=== PATIENT | female | born 1995 | race Caucasian/White ===

== ENCOUNTER 2021-03-17 18:17 | Emergency (ER) | payer OTHER, SELFPAY ==
[2021-03-17 18:20] VITALS: BP 135/80; PULSE 95; RESP 18; TEMP 36.8; O2SAT 98; BMI 16.9
--- NOTE | 2021-03-17 18:56 | CT_ITS ---
PROCEDURE INFORMATION: Exam: CT Abdomen And Pelvis With Contrast Exam date and time: 03/17/2021 6:56 PM Age: 25 years old Clinical indication: Nausea and vomiting and other: Diarrhea; Prior surgery; Surgery date: 6+ months; Surgery type: 8 years ago; Patient HX: Nausea, vomiting, diarrhea with abdominal swelling for 3 days. ; Additional info: Abdominal swelling and erythema TECHNIQUE: Imaging protocol: Computed tomography of the abdomen and pelvis with contrast. Radiation optimization: All CT scans at this facility use at least one of these dose optimization techniques: automated exposure control; mA and/or kV adjustment per patient size (includes targeted exams where dose is matched to clinical indication); or iterative reconstruction. Contrast material: ISOVUE; Contrast volume: 75 ml; Contrast route: IV; COMPARISON: No relevant prior studies available. FINDINGS: PANCREATICOHEPATOBILIARY: The liver is enlarged without a focal intrahepatic mass or abnormality. No significant intra-or extrahepatic ductal dilation. Nonspecific periportal edema and pericholecystic fluid/diffuse gallbladder wall thickening/edema without obvious gallstones. Pancreas and spleen are unremarkable. . GENITOURINARY: No adrenal mass. Both kidneys are unremarkable without hydronephrosis. Empty urinary bladder. Uterus is normal, ovarian cysts/follicles. Small amount of free fluid in the pelvis. . GASTROINTESTINAL: A few colonic diverticula. Distended fluid-filled small and large bowel loops with wall-mucosal thickening/hyperemia. Distended air/fluid containing distal thoracic esophagus suggestive of reflux. No free intraperitoneal air or fluid collection. APPENDIX is not reliably identified. . OTHER STRUCTURES: Aorta appears unremarkable without evidence of aortic aneurysm. No bulky lymph node enlargement. Platelike atelectasis in the LEFT lung base. Asymmetric marked subcutaneous soft tissue edema-fluid in the RIGHT anterior abdominal wall extending to the midline and from the subcostal margin to the level of the symphysis pubis/mons pubis and vulva. No discrete loculated fluid collection to suggest an abscess, mildly enlarged hyperemic numerous RIGHT reactive/inguinal lymph nodes. IMPRESSION: 1. Findings suspicious for ENTEROCOLITIS. 2. Findings suggestive of CELLULITIS of the RIGHT anterior abdominal wall extending to the pelvis and reactive RIGHT INGUINAL LYMPHADENITIS detailed above without a discernible abscess. Recommend followup to complete resolution. 3. Diffuse gallbladder wall thickening/edema likely related to vigorous intravenous hydration versus less likely acute cholecystitis. 4. Other nonemergent/incidental findings as described.
--- NOTE | 2021-03-17 19:13 | PC.NURSE ---
PATIENT REFUSED BLOOD PRESSURE MONITORING AT THIS TIME
--- NOTE | 2021-03-17 19:17 | HMH.EDABDPAI ---
ED Disposition Clinical Impression: Cellulitis of right abdominal wall Disposition: Still a Patient Condition on Discharge: Fair Instructions: DI for Acute Abdominal Pain Referrals: Manuel Holt MD [Primary Care Provider] - - Critical Care Critical Care Time: No Attestation: On 03/17/21, the high probability of a clinically significant, sudden or life threatening deterioration of the following system(s) required my full and direct attention, intervention and personal management. The time I documented below is in addition to time spent performing reported procedures but includes the following listed in this critical care notation. Medical Decision Making - Medical Records Medical records reviewed: Yes: I reviewed the patient's medical records. - Rigo Inquiry Pt receiving controlled substance: Yes Rigo was queried for this patient: No Reason not queried -: Emergent pt cond-no time Risks and benefits of using a controlled substance: were discussed with pt by me Vital Signs: 03/17/21 18:20 Temperature 98.3 F Temperature Source Oral Pulse Rate [Right] 95 H Respiratory Rate 18 Blood Pressure [Right Arm] 135/80 Blood Pressure Mean [Right Arm] 98 02 Sat by Pulse Oximetry 98 Oxygen Delivery Method Room Air - Lab Data Lab Results 03/17/21 19:09: WBC 13.6 H, RBC 4.83, Hgb 14.6, Hct 43.5, MCV 90.2, MCH 30.3, MCHC 33.6, RDW 12.6, Plt Count 262, MPV 7.4, Neut % (Auto) 84.4 H, Lymph % (Auto) 9.9 L, [place] % (Auto) 4.2, Eos % (Auto) 1.2, Baso % (Auto) 0.3, Neut # (Auto) 11.5 H, Lymph # (Auto) 1.4, Williamson # (Auto) 0.6, Eos # (Auto) 0.2, Baso # (Auto) 0.0 03/17/21 19:09: Sodium 137, Potassium 3.8, Chloride 103, Carbon Dioxide 25, Anion Gap 12.8, BUN 9, Creatinine 0.60, Estimated Creat Clear 88, Estimated GFR 120, Est GFR ( Amer) 145, Glucose 101 H, Calcium 9.4, Total Bilirubin 0.9, AST 19, ALT 14, Alkaline Phosphatase 109, Total Protein 7.5, Albumin 4.1, Globulin 3.4 H, Albumin/Globulin Ratio 1.2, Lipase 16 L 03/17/21 19:09: Lactate 1.1 Result diagrams: 03/17/21 19:09 03/17/21 19:09 Orders (Tests/Meds): ED MEDICATIONS Generic Name Dose Route Start Last Admin Trade Name Freq PRN Reason Stop Dose Admin Sodium Chloride 1,000 mls @ 999 mls/hr 03/17/21 19:00 03/17/21 19:05 Sod Chlor 0.9% 1000ml Bag IV 03/17/21 20:00 999 mls/hr .Q1H1M ANITA Administration Ceftriaxone Sodium 1 gm/ 50 mls @ 100 mls/hr 03/17/21 19:45 Sodium Chloride IV 03/31/21 19:44 Q24H ANITA Protocol Discontinued Medications Generic Name Dose Route Start Last Admin Trade Name Freq PRN Reason Stop Dose Admin Morphine Sulfate 4 mg 03/17/21 18:56 03/17/21 19:06 Morphine 4mg/Ml Syringe IV 03/17/21 18:57 4 mg ONCE ONE Administration Ondansetron HCl 4 mg 03/17/21 18:56 03/17/21 19:04 Ondansetron 4mg/2ml Vial IV 03/17/21 18:57 4 mg ONCE ONE Administration ORDERS Category Date Time Status CT abdomen pelvis w con Stat Cat Scan 03/17/21 18:56 Ordered Urinalysis and Microscopic Stat Lab 03/17/21 18:55 Ordered Urine , HCG Qual. Stat Lab 03/17/21 18:55 Ordered Blood Culture Stat Micro 03/17/21 18:55 Received - Reevaluation(s) Time: 19:42 Reevaluation #1: On reevaluation, patient is feeling better. Does have slight leukocytosis. Placed on antibiotics. Patient signed out to oncoming physician pending CT and reevaluation. Medical Decision Narrative: 25-year-old female presented to the emergency department with some abdominal discomfort. The patient does have findings consistent with abdominal wall cellulitis. Patient is afebrile at this time. Work-up initiated. Abdominal Pain HPI - General Chief Complaint: Abdominal Pain Stated Complaint: Red soreness in stomach area hot to touch Time Seen by Provider: 03/17/21 18:25 Mode of Arrival: Family Vehicle Limitations: No Limitations Description of Symptoms (Recalled from ER Triage Doc. by RN): PATIENT C/O LOWER PAIN
[2021-03-17 19:28] LABS: Basophils % 0.3 % (0.1-2.0); Eosinophils # 0.2 K/mm3 (0.0-0.4); Eosinophils % 1.2 % (0.1-12.0); Hematocrit 43.5 % (37.0-47.0); Hemoglobin 14.6 g/dL (12.2-16.2); Lymphocytes # 1.4 K/mm3 (0.7-4.5); Lymphocytes % 9.9 % (10-50); Mean Corpuscular HGB Conc 33.6 g/dL (31.8-35.4); Mean Corpuscular Hemoglobin 30.3 pg (27.0-31.2); Mean Corpuscular Volume 90.2 fl (81-99); Mean Platelet Volume 7.4 fl (7.4-10.4); Monocytes # 0.6 K/mm3 (0.1-1.0); Monocytes % 4.2 % (1.7-9.3); Neutrophils # 11.5 K/mm3 (1.8-7.8); Neutrophils % 84.4 % (37.0-80.0); Platelet Count 262 K/mm3 (142-424); Red Blood Count 4.83 M/mm3 (4.20-5.40); Red Cell Distribution Width 12.6 % (11.5-17.5); White Blood Count 13.6 K/mm3 (4.8-10.8)
[2021-03-17 19:29] LABS: Potassium 3.8 mmoL/L (3.5-5.1); Sodium 137 mmol/L (136-145)
[2021-03-17 19:30] LABS: Chloride 103 mmol/L (98-107)
[2021-03-17 19:32] LABS: Alanine Aminotransferase 14 U/L (12-78); Albumin Level 4.1 g/dl (3.5-5.0); Albumin/Globulin Ratio 1.2 (1.1-1.8); Alkaline Phosphatase 109 U/L (38-126); Anion Gap 12.8 mEq/L (5-15); Aspartate Amino Transferase 19 U/L (14-36); Bilirubin,Total 0.9 mg/dl (0.2-1.3); Blood Urea Nitrogen 9 mg/dl (7-17); Calcium 9.4 mg/dl (8.4-10.2); Carbon Dioxide 25 mmol/L (22.0-30.0); Creatinine Clearance Estimated 88 mL/min (50-200); Estimated Glomerular Filt Rate 120 ml/min (>60); GFR (African American) 145 ML/MIN (>60); Globulin 3.4 g/dL (1.3-3.2); Glucose 101 mg/dl (74-100); Lactic Acid 1.1 mmol/L (0.7-2.1); Lipase 16 U/L (23-300); Total Protein,Serum 7.5 g/dl (6.3-8.2)
[2021-03-17 20:09] LABS: HCG Qualitative, Serum Negative (Negative)
[2021-03-17 20:17] LABS: Microscopic, Urine URINE MICROSCOPIC (MICROSCOPIC)
[2021-03-17 20:20] LABS: Appearance,Urine SL CLOUDY (Clear); Blood, Urine Negative (Negative); Color,Urine YELLOW (Yellow); Glucose,Urine (UA) Negative (Negative); Ketones,Urine TRACE (Negative); Leukocyte Esterase,Urine Negative (Negative); Nitrate,Urine Negative (Negative); Protein,Urine 1+ (Negative); Specific Gravity, Urine >= 1.030 (1.005-1.030)
[2021-03-17 20:24] LABS: Bilirubin,Urine Negative (Negative)
[2021-03-17 20:35] LABS: Bacteria,Urine 3+ /lpf; Mucus,Urine 2+ /lpf; Squamous Epithelial Cell,Urine TNTC #/hpf (0-5)
--- NOTE | 2021-03-17 21:26 | PC.NURSE ---
discontinued iv per md request.
[2021-03-17 21:27] VITALS: BP 119/57; PULSE 88; RESP 20; TEMP 36.7; O2SAT 98
== END 2021-03-17 21:25 | disposition left against medical advice (07) ==
PROVIDERS: Emergency Provider Emergency Medicine; PCP Internal Medicine Adolescent Medicine
DX: L03.311 Cellulitis of abdominal wall (principal); R10.30 Lower abdominal pain, unspecified; F17.210 Nicotine dependence, cigarettes, uncomplicated
CPT/HCPCS: 74177; 80053; 81001; 83605; 83690; 84703; 85025; 87040; 87086; 96365; 99283; J2405; Q9967

== ENCOUNTER 2021-03-18 15:56 | Emergency (ER) | payer OTHER, SELFPAY ==
[2021-03-18 15:57] VITALS: BP 126/71; PULSE 87; RESP 17; TEMP 36.8; O2SAT 98; BMI 17.1
--- NOTE | 2021-03-18 18:00 | PC.NURSE ---
pt left without being seen by ER MD at this time.
[2021-03-18 18:01] VITALS: BP 126/71; PULSE 87; RESP 17; TEMP 36.8; O2SAT 98
== END 2021-03-18 18:01 | disposition left against medical advice (07) ==
PROVIDERS: Emergency Provider Emergency Medicine; PCP Internal Medicine Adolescent Medicine
DX: Z53.21 Procedure and treatment not carried out due to patient leaving prior to being seen by health care provider (principal); L03.311 Cellulitis of abdominal wall
CPT/HCPCS: 99211

== ENCOUNTER 2023-01-10 03:03 | Emergency (ER) | payer OTHER, SELFPAY ==
[2023-01-10 03:21] VITALS: BP 130/91; PULSE 75; RESP 18; TEMP 36.2; O2SAT 99; BMI 18.5
[2023-01-10 03:29] LABS: Microscopic, Urine URINE MICROSCOPIC (MICROSCOPIC)
[2023-01-10 03:32] LABS: Appearance,Urine TURBID (Clear); Bilirubin,Urine Negative (Negative); Blood, Urine TRACE-I (Negative); Color,Urine YELLOW (Yellow); Glucose,Urine (UA) Negative (Negative); Ketones,Urine Negative (Negative); Leukocyte Esterase,Urine 1+ (Negative); Nitrate,Urine Negative (Negative); PH,Urine 5.5 (5.0-8.5); Protein,Urine Negative (Negative); Specific Gravity, Urine >= 1.030 (1.005-1.030); Urobilinogen,Urine 0.2 EU/dl (0.2)
[2023-01-10 03:34] LABS: Urine Pregnancy, HCG Qual. Positive (Negative)
--- NOTE | 2023-01-10 03:34 | HMH.EDGENADL ---
Discharge Plan Disposition Chief Complaint: Nausea/Vomiting/Diarrhea Prescriptions Prescriptions: New promethazine 25 mg tablet 25 mg PO TID PRN (Reason: nausea and vomiting) Qty: 10 0RF pyridoxine (vitamin B6) 25 mg tablet 25 mg PO QID PRN (Reason: nausea and vomiting) Qty: 15 0RF Instructions Patient Instructions: DI for Diarrhea and Traveler's Diarrhea -- Adult, DI for Diarrhea and Traveler's Diarrhea -- Child, DI for Nausea -- Adult, DI for Nausea -- Child Discharge ED Provider: Michael Cyr General Adult HPI General Chief complaint: Nausea/Vomiting/Diarrhea Stated complaint: 8-9 weeks vomiting,HERNANDEZ,stomach pain Time Seen by Provider: 01/10/23 03:34 Mode of Arrival: Ambulatory Source of Information: Patient Limitations: No Limitations Description of Symptoms (Recalled from ER Triage Doc. by RN): Pt arrives to ER via private vehicle with c/o nausea for the prior several weeks. Pt states that she found out that she was due to her nausea. However, tonight patient presents with worsening nausea and is unable to keep any fluids down. Pt also has a headache and diarrhea. C/O left sided pain from her ribs to her left hip. History of Present Illness HPI narrative: Patient presents for evaluation of nausea and vomiting for the last several hours patient estimates she is approximately 10 weeks , but has not had a confirmatory ultrasound. She denies vaginal bleeding at this time. She is having left-sided abdominal pain as well. Patient states she is having significant diarrhea, but no reported fevers. Related Data Previous Rx's Medication Instructions Recorded promethazine 25 mg tablet 25 mg PO TID PRN nausea and 01/10/23 vomiting #10 tabs pyridoxine (vitamin B6) 25 mg 25 mg PO QID PRN nausea and 01/10/23 tablet vomiting #15 tabs Allergies Allergy/AdvReac Type Severity Reaction Status Date / Time No Known Allergies Allergy Unverified 11/03/17 14:03 [facility] Disclaimer: The information contained in this section may have been updated after the patient was seen, as this information can be updated by other users. Social History Smoking Status: Current every day smoker tobacco type: cigarettes packs per day: 1 second hand exposure: Yes alcohol intake: never current occupational status: other Travel in the last 8 weeks: None ROS Obtained: Yes Systems reviewed as appropriate & no additional complaints except as documented Physical Exam General General appearance: alert and in no apparent distress Head Head exam: atraumatic and normocephalic Eye Eye exam: Present normal appearance Chest Chest inspection: Present normal inspection and symmetric chest wall rise Respiratory Respiratory exam: Present normal lung sounds bilaterally Cardiovascular Cardiovascular exam: Present regular rate and normal rhythm Abdominal Exam Abdominal exam: Present soft Abdominal tenderness: Present LUQ and LLQ Neurological Exam Neurological exam: Present alert and oriented X3 Skin Skin exam: Present warm and dry Medical Decision Making Rigo Inquiry Pt receiving controlled substance: No Vital Signs: 01/10/23 03:21 Temperature 97.2 F L Temperature Source Oral Pulse Rate [Apical] 75 Respiratory Rate 18 Blood Pressure [Right Arm] 130/91 H Blood Pressure Mean [Right Arm] 104 Blood Pressure Source [Right Arm] Automatic Cuff Blood Pressure Position [Right Arm] Sitting 02 Sat by Pulse Oximetry 99 Oxygen Delivery Method Room Air Lab Data Lab Results 01/10/23 03:10: Urine Color Yellow, Urine Appearance Turbid, Urine pH 5.5, Ur Specific [place] >= 1.030, Urine Protein Negative, Urine Glucose (UA) Negative, Urine Ketones Negative, Urine Blood Trace-i, Urine Nitrate Negative, Urine Bilirubin Negative, Urine Urobilinogen 0.2, Ur Leukocyte Esterase 1+ A, Urine RBC None, Urine WBC 5-10, Ur Squamous Epith Cells Tntc, Amorphous Sediment 1+, Urine Bacteria 2+ 01/10/23 03:10: Urine HCG,
[2023-01-10 03:44] LABS: Basophils # 0.1 K/mm3 (0-0.2); Basophils % 0.8 % (0.1-2.0); Eosinophils # 0.3 K/mm3 (0.0-0.4); Eosinophils % 1.9 % (0.1-12.0); Hematocrit 43.3 % (37.0-47.0); Hemoglobin 14.7 g/dL (12.2-16.2); Lymphocytes # 3.3 K/mm3 (0.7-4.5); Lymphocytes % 24.4 % (10-50); Mean Corpuscular Hemoglobin 31.6 pg (27.0-31.2); Mean Corpuscular Volume 92.8 fl (81-99); Mean Platelet Volume 7.6 fl (7.4-10.4); Monocytes # 0.5 K/mm3 (0.1-1.0); Monocytes % 3.8 % (1.7-9.3); Neutrophils # 9.2 K/mm3 (1.8-7.8); Neutrophils % 69.1 % (37.0-80.0); Platelet Count 340 K/mm3 (142-424); Red Blood Count 4.67 M/mm3 (4.20-5.40); Red Cell Distribution Width 13.1 % (11.5-17.5); White Blood Count 13.3 K/mm3 (4.8-10.8)
[2023-01-10 03:46] LABS: Amorphous Sediment,Urine 1+ /lpf; Bacteria,Urine 2+ /lpf; Squamous Epithelial Cell,Urine TNTC #/hpf (0-5)
--- NOTE | 2023-01-10 03:47 | US_ITS ---
PROCEDURE INFORMATION: Exam: US , Transvaginal and US Duplex Artery and Vein, Ovaries, Complete Exam date and time: 01/10/2023 4:22 AM Age: 27 years old Clinical indication: complicated by abdominal or pelvic pain; Left lower quadrant; First trimester (<14 weeks 0 days); Gestational age or lmp: 9w; ; Additional info: Mod-severe abd pain, undocumented TECHNIQUE: Imaging protocol: Real-time transvaginal obstetrical ultrasound of the maternal pelvis and a first trimester with image documentation. Transvaginal imaging was used for better evaluation of the fetus, adnexa, and/or cervix. Real-time duplex ultrasound scan of the arterial and venous flow of the ovaries with B-mode, color Doppler flow and spectral waveform analysis, Complete Duplex. Duplex exam was performed to evaluate for torsion and other vascular conditions. COMPARISON: No relevant prior studies available. FINDINGS: Uterus: The uterus is gravid with a single intrauterine gestational sac containing pole/yolk sac. Cardiac activity at 167 beats per minute. . Composite Gestational Age/ Pole corresponds to 8 weeks and 6 days with estimated date of confinement of 08/16/2023. . Adnexa/Ovaries: RIGHT ovary measures approximately 8.0 mL and LEFT ovary 5.1 mL. No adnexal mass or abnormality. No free fluid in the pelvis. . Doppler: Doppler examination of the ovaries with pulsed wave and color images was performed which demonstrate arterial/venous waveforms within normal limits. IMPRESSION: 1. Single LIVE intrauterine gestation. 2. Normal ovaries demonstrating blood flow on Doppler.
[2023-01-10 03:50] LABS: Alanine Aminotransferase 16 U/L (12-78); Albumin Level 4.3 g/dl (3.5-5.0); Albumin/Globulin Ratio 1.6 (1.1-1.8); Alkaline Phosphatase 52 U/L (38-126); Anion Gap 4.5 mEq/L (5-15); Aspartate Amino Transferase 26 U/L (14-36); Bilirubin,Total 0.5 mg/dl (0.2-1.3); Blood Urea Nitrogen 5 mg/dl (7-17); Calcium 9.1 mg/dl (8.4-10.2); Carbon Dioxide 28 mmol/L (22.0-30.0); Chloride 106 mmol/L (98-107); Creatinine Clearance Estimated 113 mL/min (50-200); Estimated Glomerular Filt Rate 146 ml/min (>60); GFR (African American) 177 ML/MIN (>60); Globulin 2.7 g/dL (1.3-3.2); Glucose 115 mg/dl (74-100); Lipase 55 U/L (23-300); Potassium 3.5 mmoL/L (3.5-5.1); Sodium 135 mmol/L (136-145)
--- NOTE | 2023-01-10 04:20 | PC.NURSE ---
Pt to ultrasound.
--- NOTE | 2023-01-10 04:38 | PC.NURSE ---
Pt back from U/S
[2023-01-10 05:36] VITALS: BP 112/70; PULSE 87; RESP 19; TEMP 36.5; O2SAT 97
== END 2023-01-10 05:40 | disposition home or self-care (01) ==
PROVIDERS: Emergency Provider Emergency Medicine
DX: R19.7 Diarrhea, unspecified; R51.9 Headache, unspecified; F17.210 Nicotine dependence, cigarettes, uncomplicated; O21.9 Vomiting of pregnancy, unspecified; Z3A.10 10 weeks gestation of pregnancy; O99.891 Other specified diseases and conditions complicating pregnancy; O99.331 Smoking (tobacco) complicating pregnancy, first trimester
CPT/HCPCS: 76817; 80053; 81001; 81025; 83690; 84702; 85025; 87086; 96361; 96374; 96375; 99285; J0131

== ENCOUNTER 2023-01-11 15:15 | Observation (INO) | payer OTHER, SELFPAY ==
[2023-01-11 15:16] VITALS: BP 119/90; PULSE 79; RESP 18; TEMP 36.7; O2SAT 96; BMI 19.5
[2023-01-11 15:47] LABS: Basophils # 0.1 K/mm3 (0-0.2); Basophils % 0.5 % (0.1-2.0); Eosinophils # 0.2 K/mm3 (0.0-0.4); Eosinophils % 1.1 % (0.1-12.0); Hematocrit 48.1 % (37.0-47.0); Hemoglobin 16.5 g/dL (12.2-16.2); Lymphocytes # 1.4 K/mm3 (0.7-4.5); Lymphocytes % 8.3 % (10-50); Mean Corpuscular HGB Conc 34.3 g/dL (31.8-35.4); Mean Corpuscular Hemoglobin 31.4 pg (27.0-31.2); Mean Corpuscular Volume 91.6 fl (81-99); Mean Platelet Volume 7.8 fl (7.4-10.4); Monocytes # 0.6 K/mm3 (0.1-1.0); Monocytes % 3.6 % (1.7-9.3); Neutrophils # 14.9 K/mm3 (1.8-7.8); Neutrophils % 86.5 % (37.0-80.0); Platelet Count 359 K/mm3 (142-424); Red Blood Count 5.25 M/mm3 (4.20-5.40); Red Cell Distribution Width 13.2 % (11.5-17.5); White Blood Count 17.2 K/mm3 (4.8-10.8)
[2023-01-11 15:48] LABS: Alanine Aminotransferase 35 U/L (12-78); Albumin Level 5.1 g/dl (3.5-5.0); Albumin/Globulin Ratio 1.6 (1.1-1.8); Alkaline Phosphatase 58 U/L (38-126); Anion Gap 10.3 mEq/L (5-15); Aspartate Amino Transferase 42 U/L (14-36); Bilirubin,Total 0.9 mg/dl (0.2-1.3); Blood Urea Nitrogen 13 mg/dl (7-17); Carbon Dioxide 30 mmol/L (22.0-30.0); Chloride 98 mmol/L (98-107); Creatinine Clearance Estimated 119 mL/min (50-200); Estimated Glomerular Filt Rate 146 ml/min (>60); GFR (African American) 177 ML/MIN (>60); Globulin 3.1 g/dL (1.3-3.2); Glucose 138 mg/dl (74-100); Potassium 3.3 mmoL/L (3.5-5.1); Sodium 135 mmol/L (136-145); Total Protein,Serum 8.2 g/dl (6.3-8.2)
[2023-01-11 15:53] LABS: MANUAL DIFFERENTIAL MANUAL DIFFERENTIAL (MANUAL DIFF)
[2023-01-11 16:03] LABS: Lymphocytes % 10 % (10-50); Monocytes % 3 % (2-9); Neutrophils % 87 % (42-76); Total Cells Counted 100
[2023-01-11 16:05] LABS: Platelet Estimate Normal; RBC Morphology Normal
--- NOTE | 2023-01-11 16:35 | PC.NURSE ---
NADIRA MCKEON at
--- NOTE | 2023-01-11 16:45 | HMH.EDGENADL ---
Discharge Plan Disposition Patient Disposition: Admitted as Observation Condition: Fair Chief Complaint: Nausea/Vomiting/Diarrhea Prescriptions Prescriptions: No Action promethazine 25 mg tablet 25 mg PO TID PRN (Reason: nausea and vomiting) Qty: 10 0RF pyridoxine (vitamin B6) 25 mg tablet 25 mg PO QID PRN (Reason: nausea and vomiting) Qty: 15 0RF Referrals Follow up/Referrals: Provider,Referral, MD [Primary Care Provider] - See instructions Clinical Impressions Clinical Impression: Gastroenteritis, Intractable vomiting, , Acute dehydration Instructions Patient Instructions: DI for Diarrhea and Traveler's Diarrhea -- Adult, DI for Diarrhea and Traveler's Diarrhea -- Child, DI for Nausea -- Adult, DI for Nausea -- Child Discharge ED Provider: Taj Olvera General Adult HPI General Chief complaint: Nausea/Vomiting/Diarrhea Stated complaint: 9wks preg with vomiting Time Seen by Provider: 01/11/23 16:32 Mode of Arrival: Ambulatory Source of Information: Patient Limitations: No Limitations Description of Symptoms (Recalled from ER Triage Doc. by RN): pt is 9 weeks and is complianing of nausea/ vomiting x 3 days. pt was seen in the ER two nights ago for same complaints History of Present Illness HPI narrative: Complains of vomiting and dehydration. She is 9 weeks 1 day gestation . States that she began with nausea, vomiting, and diarrhea 3 days ago. She had about 4 episodes of diarrhea and since then has not had a bowel movement. No blood in diarrhea. She has had intractable vomiting, unable to keep anything down and now feels dehydrated, dry mouth. Initially she had left-sided abdominal pain but now says she has no abdominal pain. She says she has some soreness of the left side of her throat and her neck from vomiting. She thinks she might of had a fever when her illness first started. She was seen in the emergency room 2 nights ago for the same complaints. Discharged on Phenergan and pyridoxine which has not helped. She has not yet had any care for this . She is 2, para 1, with prior . Related Data Previous Rx's Medication Instructions Recorded promethazine 25 mg tablet 25 mg PO TID PRN nausea and 01/10/23 vomiting #10 tabs pyridoxine (vitamin B6) 25 mg 25 mg PO QID PRN nausea and 01/10/23 tablet vomiting #15 tabs Allergies Allergy/AdvReac Type Severity Reaction Status Date / Time No Known Allergies Allergy Unverified 11/03/17 14:03 [facility] Disclaimer: The information contained in this section may have been updated after the patient was seen, as this information can be updated by other users. Social History Smoking Status: Current every day smoker tobacco type: cigarettes packs per day: 1 second hand exposure: Yes alcohol intake: never current occupational status: other Travel in the last 8 weeks: None ROS Obtained: Yes Systems reviewed as appropriate & no additional complaints except as documented Constitutional Constitutional: Reports fever(s), Denies headache(s) and Denies weakness ENT Ears, Nose, Mouth, and Throat: Denies headache(s), Denies nasal discharge and Reports sore throat (Hurts when she vomits) Cardiovascular Cardiovascular: Denies chest pain Respiratory Respiratory: Denies shortness of breath and Denies cough Gastrointestinal Gastrointestingal: Reports abdominal pain, diarrhea, nausea and vomiting; Denies constipation Genitourinary Female Genitourinary: Denies difficulty voiding, Denies dysuria and Denies flank pain Musculoskeletal Musculoskeletal: Denies numbness Neurologic Neurologic: Denies headache(s), Denies numbness and Denies weakness Physical Exam General General appearance: alert and in no apparent distress Head Head exam: atraumatic and normocephalic Eye Eye exam: Present normal appearance and EOMI ENT ENT exam: Present mucous membranes dry (Lips dry also) Neck Neck
[2023-01-11 16:46] VITALS: BP 127/81; PULSE 74; RESP 16; O2SAT 98
--- NOTE | 2023-01-11 16:47 | PC.NURSE ---
pt sitting up in bed, trying to drink 7 up, recommended to pt that she try to take small sips at a time call light within reach
--- NOTE | 2023-01-11 16:58 | PC.NURSE ---
speaking with Dr. Jaime
[2023-01-11 17:02] LABS: Lipase 48 U/L (23-300)
--- NOTE | 2023-01-11 17:05 | PC.NURSE ---
called house for bed
[2023-01-11 17:13] LABS: Coronavirus 19, PCR Not Detected (NotDetected); Influenza A, PCR Not Detected (NotDetected); Influenza B, PCR Not Detected (NotDetected)
--- NOTE | 2023-01-11 18:27 | PC.NURSE ---
Dr. Jaime at pt's bedside
--- NOTE | 2023-01-11 18:44 | PC.NURSE ---
Attempting to call report
[2023-01-11 18:50] LABS: Microscopic, Urine URINE MICROSCOPIC (MICROSCOPIC)
--- NOTE | 2023-01-11 18:51 | PC.NURSE ---
Called report to Sydnee Murphy RN, will transport pt to OB shortly.
[2023-01-11 18:57] LABS: Appearance,Urine SL CLOUDY (Clear); Blood, Urine Negative (Negative); Color,Urine YELLOW (Yellow); Glucose,Urine (UA) Negative (Negative); Ketones,Urine TRACE (Negative); Leukocyte Esterase,Urine Negative (Negative); Nitrate,Urine Negative (Negative); Protein,Urine 1+ (Negative)
[2023-01-11 19:01] LABS: Bilirubin,Urine 1+ (Negative)
[2023-01-11 19:08] VITALS: BP 139/78; PULSE 75; RESP 17; TEMP 36.8; O2SAT 97
[2023-01-11 19:13] LABS: Bacteria,Urine 2+ /lpf; RBC,Urine Occasional #/hpf (0-3); Squamous Epithelial Cell,Urine 20-50 #/hpf (0-5)
[2023-01-11 19:30] VITALS: BP 115/69; PULSE 84; RESP 18; TEMP 37.1; O2SAT 95; BMI 19.6
[2023-01-12 00:05] LABS: Amphetamine/Metha Screen,Urine Negative ng/ml (<1000); Barbiturates Screen,Urine Negative ng/ml (<200)
[2023-01-12 00:06] LABS: Benzodiazepines Screen,Urine Negative ng/ml (<200); Cannabinoid Screen,Urine Positive ng/ml (<50)
[2023-01-12 00:07] LABS: Cocaine Screen,Urine Negative ng/ml (<300)
[2023-01-12 00:08] LABS: Methadone Screen,Urine Negative ng/ml (<300); Opiate Screen,Urine Negative ng/ml (<300)
[2023-01-12 00:09] LABS: Phencyclidine Screen,Urine Negative ng/ml (<25)
[2023-01-12 04:00] VITALS: BP 116/71; PULSE 82; RESP 18; TEMP 36.9; O2SAT 95
[2023-01-12 06:56] LABS: Basophils # 0.1 K/mm3 (0-0.2); Basophils % 0.4 % (0.1-2.0); Mean Platelet Volume 7.9 fl (7.4-10.4); Monocytes # 0.6 K/mm3 (0.1-1.0)
[2023-01-12 06:57] LABS: Chloride 106 mmol/L (98-107); Potassium 3.2 mmoL/L (3.5-5.1); Sodium 134 mmol/L (136-145)
[2023-01-12 07:00] LABS: Anion Gap 7.2 mEq/L (5-15); Blood Urea Nitrogen 7 mg/dl (7-17); Calcium 8.2 mg/dl (8.4-10.2); Carbon Dioxide 24 mmol/L (22.0-30.0); Creatinine Clearance Estimated 149 mL/min (50-200); Estimated Glomerular Filt Rate 189 ml/min (>60); GFR (African American) 228 ML/MIN (>60); Glucose 100 mg/dl (74-100)
[2023-01-12 07:04] LABS: Eosinophils % 0.2 % (0.1-12.0); Hematocrit 41.6 % (37.0-47.0); Lymphocytes # 1.8 K/mm3 (0.7-4.5); Lymphocytes % 14.5 % (10-50); Mean Corpuscular HGB Conc 32.3 g/dL (31.8-35.4); Mean Corpuscular Hemoglobin 30.6 pg (27.0-31.2); Mean Corpuscular Volume 94.8 fl (81-99); Monocytes % 4.6 % (1.7-9.3); Neutrophils # 10.1 K/mm3 (1.8-7.8); Neutrophils % 80.3 % (37.0-80.0); Platelet Count 309 K/mm3 (142-424); Red Blood Count 4.39 M/mm3 (4.20-5.40); Red Cell Distribution Width 13.2 % (11.5-17.5); White Blood Count 12.6 K/mm3 (4.8-10.8)
[2023-01-12 07:06] LABS: Hemoglobin 13.4 g/dL (12.2-16.2)
--- NOTE | 2023-01-12 07:16 | HMH.PHAINT1 ---
Pharmacy Intervention Comments: MEDICATION RECONCILIATION COMPLETED ON PATIENT USING EXTERNAL FILL HISTORY FROM PHARMACY. -ADRIA CUELLO, ARABELLAD
[2023-01-12 07:37] LABS: Free Thyroxine Index 7.1 ug/dL (5.93-13.13); T4 (Thyroxine) 17.8 ug/dl (5.53-11.0); Triiodothryronine (T3) Uptake 40 % (23.5-40.5)
[2023-01-12 07:51] LABS: Thyroid Stimulating Hormone < 0.02 uIU/mL (0.465-4.68)
[2023-01-12 08:10] VITALS: BP 134/84; PULSE 78; RESP 18; TEMP 36.7; O2SAT 97
--- NOTE | 2023-01-12 08:42 | EXP.HP ---
History of Present Illness *Admission Date: 01/11/23 *Reason for visit:: Nausea vomiting, dehydration, hyperemesis *History of present illness: She is a 27-year-old 2 para 1 at 9 weeks gestational age with an early ultrasound that confirmed her dates. She was seen a couple of days ago with nausea and vomiting and dehydration and was seen again in the ER 48 hours later. As result of that she is admitted for rehydration, control of nausea and vomiting. [facility] Disclaimer: The information contained in this section may have been updated after the patient was seen, as this information can be updated by other users. Surgical History History of section Family History Family history of diabetes mellitus type II Social History Smoking Status: Former smoker second hand exposure: Yes alcohol intake: never current occupational status: employed Travel in the last 8 weeks: None Review of Systems Review of Systems Review of systems:: pertinent systems reviewed and negative unless documented below Constitutional Constitutional: Denies headache(s) and Denies weakness ENT Ears, Nose, Mouth, and Throat: Denies headache(s) *Musculoskeletal Musculoskeletal: Denies numbness *Neurologic Neurologic: Denies headache(s), Denies numbness and Denies weakness Meds Home Medications and Allergies Home Medications Medication Instructions Recorded Confirmed Type promethazine 25 mg tablet 25 mg PO TID PRN nausea and 01/10/23 01/11/23 Rx vomiting #10 tabs pyridoxine (vitamin B6) 25 mg 25 mg PO QID PRN nausea and 01/10/23 01/11/23 Rx tablet vomiting #15 tabs New Prescriptions to Start Prescriptions: Allergies Allergy/AdvReac Type Severity Reaction Status Date / Time No Known Allergies Allergy Unverified 11/03/17 14:03 Exam Data for Last 24 hours Vital signs and Labs for Last 24 Hours: Temp Pulse Resp BP Pulse Ox 98.5 F 82 18 116/71 95 01/12/23 04:00 01/12/23 04:00 01/12/23 04:00 01/12/23 04:00 01/12/23 04:00 Laboratory Results - last 24 hr 01/11/23 15:00: Lipase 48 01/11/23 15:20: WBC 17.2 H D, RBC 5.25, Hgb 16.5 H, Hct 48.1 H, MCV 91.6, MCH 31.4 H, MCHC 34.3, RDW 13.2, Plt Count 359, MPV 7.8, Neut % (Auto) 86.5 H, Lymph % (Auto) 8.3 L, [place] % (Auto) 3.6, Eos % (Auto) 1.1, Baso % (Auto) 0.5, Neut # (Auto) 14.9 H, Lymph # (Auto) 1.4, Oliver # (Auto) 0.6, Eos # (Auto) 0.2, Baso # (Auto) 0.1, Total Counted 100, Neutrophils % (Manual) 87 H, Lymphocytes % (Manual) 10, Monocytes % (Manual) 3, Platelet Estimate Normal, RBC Morphology Normal 01/11/23 15:20: Sodium 135 L, Potassium 3.3 L, Chloride 98, Carbon Dioxide 30, Anion Gap 10.3, BUN 13 D, Creatinine 0.50 L, Estimated Creat Clear 119, Estimated GFR 146, Est GFR ( Amer) 177, Glucose 138 H, Calcium 10.0, Total Bilirubin 0.9, AST 42 H D, ALT 35 D, Alkaline Phosphatase 58, Total Protein 8.2, Albumin 5.1 H D, Globulin 3.1, Albumin/Globulin Ratio 1.6 01/11/23 17:07: SARS-CoV-2 (PCR) Not detected, Influenza A Untype (PCR) Not detected, Influenza Type B (PCR) Not detected 01/11/23 18:48: Urine Color Yellow, Urine Appearance Sl cloudy, Urine pH 8.0, Ur Specific [place] 1.020, Urine Protein 1+, Urine Glucose (UA) Negative, Urine Ketones Trace, Urine Blood Negative, Urine Nitrate Negative, Urine Bilirubin 1+ A, Urine Urobilinogen 1.0, Ur Leukocyte Esterase Negative, Urine RBC Occasional, Urine WBC 3-5, Ur Squamous Epith Cells 20-50, Urine Bacteria 2+ 01/11/23 18:48: Urine Opiates Screen Negative, Urine Methadone Screen Negative, Ur Barbituates Screen Negative, Ur Phencyclidine Scrn Negative, Ur Amphetamines Screen Negative, U Benzodiazepines Scrn Negative, Urine Cocaine Screen Negative, U Marijuana (THC) Screen Positive H 01/12/23 06:40: WBC 12.6 H D, RBC 4.39, Hgb 13.4 D, Hct 41.6, MCV 94.8, MCH 30.
--- NOTE | 2023-01-12 08:45 | EXP.ACUTE.PN ---
Subjective *Date: 01/12/23 *Time: 08:45 Interval history: She is doing a little better this morning. She has still had some nausea. Her thyroid panel showed that she had hyperthyroidism. She is mildly hypokalemic with a potassium at 3.2. Her vomiting has settled somewhat. She vomited once this morning. She is taking Diclegis and we will go ahead and just give her scheduled Phenergan 12.5 mg. We have rehydrated her. She did void this morning. We will also get a medicine consult for her hyperthyroidism. Medical Exam Vital signs and Labs for Last 24 Hours: Vital Signs Temp Pulse Pulse Resp BP BP Pulse Ox 01/12/23 04:00 98.5 F 82 18 116/71 95 01/11/23 19:30 98.8 F 84 18 115/69 95 01/11/23 19:08 98.3 F 75 17 139/78 01/11/23 16:46 74 16 127/81 98 01/11/23 15:16 98.1 F 79 18 119/90 96 Intake and Output 01/11/23 01/12/23 01/12/23 19:59 03:59 11:59 Intake Total 1025 / 1025 Balance 1025 / 1025 Intake: Intake, Total IV Amount 1025 / 1025 Other: Weight 99 lb 15.992 oz Patient Weight 01/12/23 11:59 Weight 99 lb 15.992 oz Laboratory Results - last 24 hr 01/11/23 15:00: Lipase 48 01/11/23 15:20: WBC 17.2 H D, RBC 5.25, Hgb 16.5 H, Hct 48.1 H, MCV 91.6, MCH 31.4 H, MCHC 34.3, RDW 13.2, Plt Count 359, MPV 7.8, Neut % (Auto) 86.5 H, Lymph % (Auto) 8.3 L, [place] % (Auto) 3.6, Eos % (Auto) 1.1, Baso % (Auto) 0.5, Neut # (Auto) 14.9 H, Lymph # (Auto) 1.4, [place] # (Auto) 0.6, Eos # (Auto) 0.2, Baso # (Auto) 0.1, Total Counted 100, Neutrophils % (Manual) 87 H, Lymphocytes % (Manual) 10, Monocytes % (Manual) 3, Platelet Estimate Normal, RBC Morphology Normal 01/11/23 15:20: Sodium 135 L, Potassium 3.3 L, Chloride 98, Carbon Dioxide 30, Anion Gap 10.3, BUN 13 D, Creatinine 0.50 L, Estimated Creat Clear 119, Estimated GFR 146, Est GFR ( Amer) 177, Glucose 138 H, Calcium 10.0, Total Bilirubin 0.9, AST 42 H D, ALT 35 D, Alkaline Phosphatase 58, Total Protein 8.2, Albumin 5.1 H D, Globulin 3.1, Albumin/Globulin Ratio 1.6 01/11/23 17:07: SARS-CoV-2 (PCR) Not detected, Influenza A Untype (PCR) Not detected, Influenza Type B (PCR) Not detected 01/11/23 18:48: Urine Color Yellow, Urine Appearance Sl cloudy, Urine pH 8.0, Ur Specific [place] 1.020, Urine Protein 1+, Urine Glucose (UA) Negative, Urine Ketones Trace, Urine Blood Negative, Urine Nitrate Negative, Urine Bilirubin 1+ A, Urine Urobilinogen 1.0, Ur Leukocyte Esterase Negative, Urine RBC Occasional, Urine WBC 3-5, Ur Squamous Epith Cells 20-50, Urine Bacteria 2+ 01/11/23 18:48: Urine Opiates Screen Negative, Urine Methadone Screen Negative, Ur Barbituates Screen Negative, Ur Phencyclidine Scrn Negative, Ur Amphetamines Screen Negative, U Benzodiazepines Scrn Negative, Urine Cocaine Screen Negative, U Marijuana (THC) Screen Positive H 01/12/23 06:40: WBC 12.6 H D, RBC 4.39, Hgb 13.4 D, Hct 41.6, MCV 94.8, MCH 30.6, MCHC 32.3, RDW 13.2, Plt Count 309, MPV 7.9, Neut % (Auto) 80.3 H, Lymph % (Auto) 14.5, [place] % (Auto) 4.6, Eos % (Auto) 0.2, Baso % (Auto) 0.4, Neut # (Auto) 10.1 H, Lymph # (Auto) 1.8, [place] # (Auto) 0.6, Eos # (Auto) 0.0, Baso # (Auto) 0.1 01/12/23 06:40: Sodium 134 L, Potassium 3.2 L, Chloride 106, Carbon Dioxide 24, Anion Gap 7.2, BUN 7 D, Creatinine 0.40 L, Estimated Creat Clear 149, Estimated GFR 189, Est GFR ( Amer) 228 D, Glucose 100 D, Calcium 8.2 L 01/12/23 06:40: TSH < 0.02 L, Free T4 Index 7.1, Thyroxine (T4) 17.8 H, T3 Uptake 40 I & O for Labs for Last 24 Hours: Intake & Output 01/09/23 01/10/23 01/11/23 01/12/23 11:59 11:59 11:59 11:59 Intake Total 1025 / 1025 Balance 1025 / 1025 Weight 99 lb 15.992 oz Head: Present atraumatic ENT: Present normal exam Neck: Present normal inspection Respiratory: Present normal respiratory effort; Absent accessory muscle use Assessment and Plan *Assessment and plan (1) Hypokalemia: Status: Acute Category: Medical Code(s): E87.6 - Hy
--- NOTE | 2023-01-12 09:23 | US_ITS ---
FINAL REPORT TECHNIQUE: Sonographic images of the thyroid gland were obtained in the longitudinal and transverse planes. CLINICAL HISTORY: hyperthyroid, eval for nodules or goiter FINDINGS: The right lobe measures 4.6 x 1.5 x 1.0 cm. The right lobe is homogeneous. There are no cystic or solid nodules. There is mild hyperemia. The left lobe measures 4.5 x 1.1 x 1.0 cm. The left lobe is homogeneous. There is a tiny colloid t cyst. No solid nodule identified. There is mild hyperemia. The isthmus measures 2 mm. This is normal. IMPRESSION: 1. No concerning nodules. Tiny left colloid cyst. 2. Diffuse hyperemia, thyroiditis not excluded. Reviewed, Interpreted and Dictated by Andressa Grajeda MD Transcribed by Jacquelyn Martinez Authenticated and [facility]
--- NOTE | 2023-01-12 09:31 | EXP.ACUTE.PN ---
Subjective *Date: 01/12/23 *Time: 09:31 Interval history: Internal medicine consulted on to Lary Gil by Dr. Manolo Lyon to evaluate for hyperthyroidism during . Concern for Graves'. Patient presented to the ER found to be 9 weeks . Thyroid panel obtained showing suppressed TSH less than lower limit of our assay less than 0.02, free T4 within a normal range at 7.1 and T4 total elevated 1-1/2 times upper limit of normal at 17.8. T3 uptake in normal range at 40%. Ms. Gil is a pleasant 27-year-old female who is currently 9 weeks . Presented to the ER with nausea, vomiting, diarrhea for 2 to 3 days. Denies any fever, palpitations, chest pain, syncope. Stable on room air at this time. Was admitted to OB for treatment of hyperemesis. Initial work-up concerning with abnormal thyroid labs. Patient states that she has been told she needed to have her thyroid checked because she is very petite and has a hard time gaining weight no matter what she eats. Has never had a work-up before for her thyroid. Has a 10-year-old and was not treated for thyroid disorder during that . Currently on no medication for hyper or hypothyroid. Denies changes in hair and skin. Denies acute changes in weight. Denies any lumps in her throat but does have a slight sensation of lump in her throat at this time. Denies frequent loose stools or diarrhea. Review of vitals shows heart rate within a normal range in the 70s and blood pressure 130/84. Denies palpitations. Also denies any family history of thyroid disorder either hyper or hypothyroid. Medical Exam Vital signs and Labs for Last 24 Hours: Vital Signs Temp Pulse Pulse Resp BP BP Pulse Ox 01/12/23 08:10 98.1 F 78 18 134/84 97 01/12/23 04:00 98.5 F 82 18 116/71 95 01/11/23 19:30 98.8 F 84 18 115/69 95 01/11/23 19:08 98.3 F 75 17 139/78 01/11/23 16:46 74 16 127/81 98 01/11/23 15:16 98.1 F 79 18 119/90 96 Intake and Output 01/11/23 01/12/23 01/12/23 23:59 07:59 15:59 Intake Total 1025 / 1025 Balance 1024 / 5 Intake: Intake, Total IV Amount 1024 / 1025 Other: Weight 45.359 kg Laboratory Results - last 24 hr 01/11/23 15:00: Lipase 48 01/11/23 15:20: WBC 17.2 H D, RBC 5.25, Hgb 16.5 H, Hct 48.1 H, MCV 91.6, MCH 31.4 H, MCHC 34.3, RDW 13.2, Plt Count 359, MPV 7.8, Neut % (Auto) 86.5 H, Lymph % (Auto) 8.3 L, [place] % (Auto) 3.6, Eos % (Auto) 1.1, Baso % (Auto) 0.5, Neut # (Auto) 14.9 H, Lymph # (Auto) 1.4, [place] # (Auto) 0.6, Eos # (Auto) 0.2, Baso # (Auto) 0.1, Total Counted 100, Neutrophils % (Manual) 87 H, Lymphocytes % (Manual) 10, Monocytes % (Manual) 3, Platelet Estimate Normal, RBC Morphology Normal 01/11/23 15:20: Sodium 135 L, Potassium 3.3 L, Chloride 98, Carbon Dioxide 30, Anion Gap 10.3, BUN 13 D, Creatinine 0.50 L, Estimated Creat Clear 119, Estimated GFR 146, Est GFR ( Amer) 177, Glucose 138 H, Calcium 10.0, Total Bilirubin 0.9, AST 42 H D, ALT 35 D, Alkaline Phosphatase 58, Total Protein 8.2, Albumin 5.1 H D, Globulin 3.1, Albumin/Globulin Ratio 1.6 01/11/23 17:07: SARS-CoV-2 (PCR) Not detected, Influenza A Untype (PCR) Not detected, Influenza Type B (PCR) Not detected 01/11/23 18:48: Urine Color Yellow, Urine Appearance Sl cloudy, Urine pH 8.0, Ur Specific [place] 1.020, Urine Protein 1+, Urine Glucose (UA) Negative, Urine Ketones Trace, Urine Blood Negative, Urine Nitrate Negative, Urine Bilirubin 1+ A, Urine Urobilinogen 1.0, Ur Leukocyte Esterase Negative, Urine RBC Occasional, Urine WBC 3-5, Ur Squamous Epith Cells 20-50, Urine Bacteria 2+ 01/11/23 18:48: Urine Opiates Screen Negative, Urine Methadone Screen Negative, Ur Barbituates Screen Negative, Ur Phencyclidine Scrn Negative, Ur Amphetamines Screen Negative, U Benzodiazepines Scrn Negative, Urine Cocaine Screen Negative, U Marijuana (THC) Screen Positive H 01/12/23 06:40: WBC 12.6 H D, RBC 4.39, Hgb 13.4 D, Hct 41.6, MCV 94.8, MCH 30.
--- NOTE | 2023-01-12 11:15 | SW/DCPLANNER ---
I received a referral on this patient regarding: [facility]. I discussed with patient multiple resources at home including: WIC (already established), [facility] (will call to inform of /agreeable) and patient will have transportation. Patient stated that she may get to discharge home later today or tomorrow. Patient had no further questions/needs at this time. I will update Audi fernandes/ GREGORIO.
[2023-01-12 16:00] VITALS: BP 113/76; PULSE 82; RESP 17; TEMP 36.6
[2023-01-12 19:27] LABS: Basophils # 0.1 K/mm3 (0-0.2); Basophils % 0.5 % (0.1-2.0); Eosinophils % 0.4 % (0.1-12.0); Hematocrit 39.5 % (37.0-47.0); Hemoglobin 13.5 g/dL (12.2-16.2); Lymphocytes # 2.2 K/mm3 (0.7-4.5); Lymphocytes % 21.3 % (10-50); Mean Corpuscular HGB Conc 34.2 g/dL (31.8-35.4); Mean Corpuscular Hemoglobin 31.7 pg (27.0-31.2); Mean Corpuscular Volume 92.7 fl (81-99); Mean Platelet Volume 7.8 fl (7.4-10.4); Monocytes # 0.5 K/mm3 (0.1-1.0); Monocytes % 4.8 % (1.7-9.3); Neutrophils # 7.6 K/mm3 (1.8-7.8); Platelet Count 294 K/mm3 (142-424); Red Blood Count 4.26 M/mm3 (4.20-5.40); White Blood Count 10.4 K/mm3 (4.8-10.8)
[2023-01-12 20:37] VITALS: BP 110/62; PULSE 83; RESP 18; TEMP 37.1; O2SAT 96
[2023-01-13 03:30] VITALS: BP 99/54; PULSE 81; RESP 17; TEMP 37.1; O2SAT 95
--- NOTE | 2023-01-13 08:11 | EXP.ACUTE.PN ---
Subjective *Date: 01/13/23 *Time: 08:11 Interval history: No acute events overnight, continues to have mild left anterior neck discomfort/pain/globus sensation. No fevers, palpitations, HERNANDEZ, CP, SOA. Tolerating PO intake Medical Exam Vital signs and Labs for Last 24 Hours: Vital Signs Temp Pulse Resp BP Pulse Ox 01/13/23 03:30 98.7 F 81 17 99/54 L 95 01/12/23 20:37 98.8 F 83 18 110/62 96 01/12/23 16:00 97.9 F 82 17 113/76 Laboratory Results - last 24 hr 01/12/23 19:04: WBC 10.4, RBC 4.26, Hgb 13.5, Hct 39.5, MCV 92.7, MCH 31.7 H, MCHC 34.2, RDW 13.0, Plt Count 294, MPV 7.8, Neut % (Auto) 73.0, Lymph % (Auto) 21.3, [place] % (Auto) 4.8, Eos % (Auto) 0.4, Baso % (Auto) 0.5, Neut # (Auto) 7.6, Lymph # (Auto) 2.2, [place] # (Auto) 0.5, Eos # (Auto) 0.0, Baso # (Auto) 0.1 01/12/23 19:04: Blood Type A Positive, Antibody Screen Negative I & O for Labs for Last 24 Hours: Intake & Output 01/10/23 01/11/23 01/12/23 01/13/23 23:59 23:59 23:59 23:59 Intake Total 1025 / 1025 Balance 1025 / 1025 Weight 45.359 kg Microbiology Reports for the Last 24 Hours: Microbiology 01/11/23 18:48 Urine,Clean Catch Urine Culture - Preliminary Constitutional: Present no acute distress, thin and cooperative Head: Present atraumatic and normocephalic ENT: Present mucous membranes moist Comment:: edentulous, no lid lag, no overt exophthalmos Neck: Present normal inspection and trachea midline; Absent thyromegaly Comment:: minimal tenderness of left anterior neck with no lumps Respiratory: Present CTA bilaterally and normal respiratory effort; Absent accessory muscle use, rhonchi, wheezes or crackles Cardiac: Present Reg Rate and Rhythm GI: Present soft and normal bowel sounds; Absent distention or tenderness Rectal (female): Present deferred (female): Present deferred Extremities: Present normal inspection and full ROM Skin: Present intact; Absent erythema Neuro: Present Cranial Nerve 2-12 Intact, DTR Norm/Equal U/L Extrem, Grossly Intact, alert, awake, oriented x 3 and moves all extremities Assessment and Plan *Assessment and plan (1) Thyroiditis: Status: Acute Category: Medical Code(s): E06.9 - Thyroiditis, unspecified (2) Hyperthyroidism affecting : Status: Acute Qualifiers: Trimester: first trimester Qualified Code(s): O99.281 - Endocrine, nutritional and metabolic diseases complicating , first trimester; E05.90 - Thyrotoxicosis, unspecified without thyrotoxic crisis or storm Category: Medical Code(s): O99.280 - Endocrine, nutritional and metabolic diseases complicating , unspecified trimester; E05.90 - Thyrotoxicosis, unspecified without thyrotoxic crisis or storm (3) : Status: Acute Qualifiers: Weeks of gestation: 9 weeks Qualified Code(s): Z3A.09 - 9 weeks gestation of Category: Medical Code(s): Z34.90 - Encounter for supervision of normal , unspecified, unspecified trimester (4) Nausea & vomiting: Status: Acute Qualifiers: Vomiting type: unspecified Qualified Code(s): R11.2 - Nausea with vomiting, unspecified Category: Medical Code(s): R11.2 - Nausea with vomiting, unspecified Plan Ms. Gil is a pleasant 27-year-old female who is at 9 weeks gestation confirmed by ultrasound. She presented with hyperemesis and was found to have thyroid lab abnormalities. Medicine consulted for evaluation of possible hyperthyroidism and further recommendations. At this time she is hemodynamically stable with heart rate in the 70s, blood pressure controlled, no goiter on exam. Has not been worked up previously for hyperthyroidism. TSH suppressed to undetectable level and total T4 elevated 1-1/2 times normal upper limit. She has had a previous and denies any abnormalities or previous treatment for hyperthyroidism. Patient clinically
[2023-01-13 08:40] VITALS: BP 138/78; PULSE 85; RESP 18; TEMP 36.8; O2SAT 100
--- NOTE | 2023-01-13 09:48 | EXP.DC.SUM ---
General Admission date:: 01/11/23 Discharge date: 01/13/23 HPI HPI HPI: She is a 27-year-old 2 para 1 at 9 weeks gestational age with an early ultrasound that confirmed her dates. She was seen a couple of days ago with nausea and vomiting and dehydration and was seen again in the ER 48 hours later. As result of that she is admitted for rehydration, control of nausea and vomiting. Hospital Course Hospital Course Hospital Course: She was started on IV fluids as well as Phenergan. We also started her on Diclegis 4 times a day. She received daily vitamin packs in the IV. She had a thyroid panel done and it shows that she is hyperthyroid. This may have been part of the cause of her nausea and vomiting. She was seen in consultation by Dr. Holt who felt that at this point in time she did not need any treatment for her hyperthyroidism. We will just follow her up. She had an ultrasound of her thyroid that just showed a small 2 mm cyst. Otherwise the thyroid ultrasound was normal. She does have a somewhat Graves' appearance with some protrusion of her eyes. We will continue to follow her after she is discharged. She is otherwise done well after receiving fluids, Phenergan and Diclegis. She is no longer vomiting. She is started to eat. Exam Data for Last 24 hours Vital signs and Labs for Last 24 Hours: Temp Pulse Resp BP Pulse Ox 98.2 F 85 18 138/78 100 01/13/23 08:40 01/13/23 08:40 01/13/23 08:40 01/13/23 08:40 01/13/23 08:40 Laboratory Results - last 24 hr 01/12/23 19:04: WBC 10.4, RBC 4.26, Hgb 13.5, Hct 39.5, MCV 92.7, MCH 31.7 H, MCHC 34.2, RDW 13.0, Plt Count 294, MPV 7.8, Neut % (Auto) 73.0, Lymph % (Auto) 21.3, [place] % (Auto) 4.8, Eos % (Auto) 0.4, Baso % (Auto) 0.5, Neut # (Auto) 7.6, Lymph # (Auto) 2.2, [place] # (Auto) 0.5, Eos # (Auto) 0.0, Baso # (Auto) 0.1 01/12/23 19:04: Blood Type A Positive, Antibody Screen Negative I & O for Last 24 hours: Intake & Output 01/10/23 01/11/23 01/12/23 01/13/23 11:59 11:59 11:59 11:59 Intake Total 1025 / 1025 Balance 1025 / 1025 Weight 99 lb 15.992 oz Microbiology Reports for the Last 24 Hours: Microbiology 01/11/23 18:48 Urine,Clean Catch Urine Culture - Preliminary Constitutional Constitutional: no acute distress *Routine HEENT Exam Head: Present normocephalic ENT: Present mucous membranes moist *Routine Respiratory Exam Respiratory: Present normal respiratory effort; Absent accessory muscle use Results Data Completed and Pending Labs on day of discharge: Labs from last 24 hours 01/12/23 01/12/23 19:04 19:04 WBC 10.4 RBC 4.26 Hgb 13.5 Hct 39.5 MCV 92.7 MCH 31.7 H MCHC 34.2 RDW 13.0 Plt Count 294 MPV 7.8 Neut % (Auto) 73.0 Lymph % (Auto) 21.3 [place] % (Auto) 4.8 Eos % (Auto) 0.4 Baso % (Auto) 0.5 Neut # (Auto) 7.6 Lymph # (Auto) 2.2 [place] # (Auto) 0.5 Eos # (Auto) 0.0 Baso # (Auto) 0.1 Blood Type A Positive Antibody Screen Negative Preliminary micro results at discharge 01/11/23 18:48 Urine Culture - Preliminary Urine,Clean Catch DS: Diagnosis Discharge Diagnosis (1) Thyroiditis: Status: Acute (2) Hyperthyroidism affecting : Status: Acute (3) : Status: Acute (4) Nausea & vomiting: Status: Acute Meds Home Medications and Allergies Home Medications Medication Instructions Recorded Confirmed Type promethazine 25 mg tablet 25 mg PO TID PRN nausea and 01/10/23 01/11/23 Rx vomiting #10 tabs pyridoxine (vitamin B6) 25 mg 25 mg PO QID PRN nausea and 01/10/23 01/11/23 Rx tablet vomiting #15 tabs promethazine 12.5 mg rectal 12.5 mg FL Q6H PRN nausea and 01/13/23 Rx suppository vomiting #12 ea New Prescriptions to Start Prescriptions: promethazine Jaime,Manolo Allergies Allergy/AdvReac Type Severity Reaction Status Date / Time No Known Allergies Aller
[2023-01-13 11:12] LABS: Thyroid Peroxidase Antibodies <9 IU/mL (0-34)
[2023-01-13 15:10] LABS: Thyroid Stimulating Immunoglob <0.10 IU/L (0.00-0.55)
[2023-01-14 10:13] LABS: Hepatitis B Surface Antigen Negative (Negative); Rubella Antibodies, IgG <0.90 index (Immune >0.99)
[2023-01-14 11:13] LABS: HIV Screen 4th Generation wRfx Non Reactive (Non Reactive)
[2023-01-14 12:25] LABS: Rapid Plasma Reagin Ab Titer Non Reactive (NonRea<1:1)
[2023-01-17 21:45] LABS: Hepatitis C Antibody NON REACTIVE
== END 2023-01-13 10:05 | disposition home or self-care (01) ==
LOC: ER 17:08 → OB 20:21
PROVIDERS: Internal Medicine Adolescent Medicine; Admitting Provider Nurse Practitioner Obstetrics & Gynecology; Emergency Provider Emergency Medicine; Visit Provider Nurse Practitioner Obstetrics & Gynecology
DX: E86.0 Dehydration (principal); O99.281 Endocrine, nutritional and metabolic diseases complicating pregnancy, first trimester; E05.90 Thyrotoxicosis, unspecified without thyrotoxic crisis or storm; Z3A.09 9 weeks gestation of pregnancy; R11.2 Nausea with vomiting, unspecified; Z20.822 Contact with and (suspected) exposure to COVID-19; E87.6 Hypokalemia
CPT/HCPCS: 36415; 76536; 80048; 80053; 80305; 81001; 83690; 84436; 84443; 84445; 84479; 85007; 85025; 86376; 86593; 86762; 86850; 87086; 87340; 87380; C9803; G0378; U0003; U0005

== ENCOUNTER → 2023-01-20 16:46 | Outpatient (CLI) | payer OTHER, SELFPAY ==
[2023-01-20 15:42] LABS: Basophils # 0.1 K/mm3 (0-0.2); Basophils % 0.5 % (0.1-2.0); Eosinophils # 0.1 K/mm3 (0.0-0.4); Eosinophils % 0.7 % (0.1-12.0); Hematocrit 47.6 % (37.0-47.0); Hemoglobin 16.1 g/dL (12.2-16.2); Lymphocytes # 2.8 K/mm3 (0.7-4.5); Lymphocytes % 19.1 % (10-50); Mean Corpuscular HGB Conc 33.9 g/dL (31.8-35.4); Mean Corpuscular Hemoglobin 31.1 pg (27.0-31.2); Mean Platelet Volume 7.9 fl (7.4-10.4); Monocytes # 0.7 K/mm3 (0.1-1.0); Monocytes % 4.4 % (1.7-9.3); Neutrophils % 75.3 % (37.0-80.0); Platelet Count 341 K/mm3 (142-424); Red Blood Count 5.17 M/mm3 (4.20-5.40); Red Cell Distribution Width 12.6 % (11.5-17.5); White Blood Count 14.6 K/mm3 (4.8-10.8)
[2023-01-22 06:12] LABS: HIV Screen 4th Generation wRfx Non Reactive (Non Reactive)
[2023-01-22 15:04] LABS: Rapid Plasma Reagin Ab Titer Non Reactive (NonRea<1:1); Rubella Antibodies, IgG <0.90 index (Immune >0.99)
[2023-01-24 02:31] LABS: Hepatitis B Surface Antigen Negative; Hepatitis C Antibody Non Reactive
== END ==
PROVIDERS: Visit Provider Nurse Practitioner Obstetrics & Gynecology
DX: Z34.90 Encounter for supervision of normal pregnancy, unspecified, unspecified trimester (principal)
CPT/HCPCS: 36415; 85025; 86593; 86703; 86762; 86850; 87086; 87340; 87380; G0432

== ENCOUNTER → 2023-03-30 12:36 | Outpatient (CLI) | payer OTHER, SELFPAY ==
--- NOTE | 2023-03-30 12:38 | US_ITS ---
FINAL REPORT CLINICAL HISTORY: 20 week anatomy scan please use anatomy template FINDINGS: There is a single live intrauterine gestation. Presentation is variable. The cervix is closed and measures 3.3 cm. Placenta is posterior and grade 1. movement is noted. Cord insertion is normal. Kidneys are normal. Four-chamber heart is seen. heart rate is identified at 143 beats per minute. Spine is unremarkable. MEASUREMENTS: ULTRASOUND AGE: 19 weeks 5 days. GESTATION AGE: 20 weeks 3 days. ESTIMATED WEIGHT: 301 g GROWTH PERCENTILE: 10 % BPD: 4.61 cm consistent with 20 weeks 0 days. OFD: 5.85 cm consistent with 20 weeks 1 days. HC: 16.5 cm consistent with 19 weeks 2 days. AC: 14.4 cm consistent with 19 weeks 6 days. FL: 3.06 cm consistent with 19 weeks 4 days. CEREBELLUM: 1.99 cm consistent with 20 weeks 2 days. HUMERUS: 20.9 cm consistent with 19 weeks 3 days. HC/AC: 1.15 CI: 79% FL/BPD: 66% FL/AC: 21% IMPRESSION: Single living IUP with an ultrasound age of 19 weeks 5 days. Reviewed, Interpreted and Dictated by Homero Morley III, MD Transcribed by Aline Loyola Authenticated and . [facility]
== END ==
PROVIDERS: PCP Nurse Practitioner Obstetrics & Gynecology; Visit Provider Nurse Practitioner Obstetrics & Gynecology
DX: Z34.90 Encounter for supervision of normal pregnancy, unspecified, unspecified trimester (principal); Z3A.20 20 weeks gestation of pregnancy
CPT/HCPCS: 76811

== ENCOUNTER → 2023-05-16 08:16 | Outpatient (CLI) | payer OTHER, SELFPAY | PROVIDERS: Visit Provider Nurse Practitioner Obstetrics & Gynecology | DX: Z34.92 Encounter for supervision of normal pregnancy, unspecified, second trimester (principal); Z3A.26 26 weeks gestation of pregnancy | CPT/HCPCS: 36415 ==

== ENCOUNTER → 2023-05-20 08:23 | Outpatient (CLI) | payer OTHER, SELFPAY ==
[2023-05-20 08:51] LABS: Glucose,Fasting 80 mg/dl (74-100)
[2023-05-20 10:00] LABS: Glucose 1 Hour 151 mg/dL (74-100)
== END ==
PROVIDERS: Visit Provider Nurse Practitioner Obstetrics & Gynecology
DX: Z34.92 Encounter for supervision of normal pregnancy, unspecified, second trimester (principal); Z3A.27 27 weeks gestation of pregnancy
CPT/HCPCS: 36415; 82951

== ENCOUNTER → 2023-06-04 08:06 | Outpatient (CLI) | payer OTHER, SELFPAY ==
[2023-06-04 09:08] LABS: Glucose,Fasting 76 mg/dl (74-100)
== END ==
PROVIDERS: Visit Provider Nurse Practitioner Obstetrics & Gynecology
DX: Z34.93 Encounter for supervision of normal pregnancy, unspecified, third trimester (principal); Z3A.29 29 weeks gestation of pregnancy
CPT/HCPCS: 36415; 82951

== ENCOUNTER → 2023-07-15 23:35 | Outpatient (CLI) | payer OTHER, SELFPAY | PROVIDERS: PCP Nurse Practitioner Obstetrics & Gynecology; Visit Provider Nurse Practitioner Obstetrics & Gynecology | DX: Z34.93 Encounter for supervision of normal pregnancy, unspecified, third trimester (principal); Z3A.35 35 weeks gestation of pregnancy | CPT/HCPCS: 86403 ==

== ENCOUNTER → 2023-07-21 09:09 | Outpatient (CLI) | payer OTHER, SELFPAY ==
--- NOTE | 2023-07-21 09:12 | US_ITS ---
Hand Marker: PROCEDURE: US OB BIOPHYSICAL PROFILE CLINICAL INDICATION: US OB BPP/Growth with SD RATIO-SGA COMPARISON: FINDINGS: Transabdominal sonographic images of the uterus were obtained. From her established due date she is 36 weeks 4 days.. The following parameters are obtained: Viable fetus in the cephalic presentation with a posterior placenta grade 3. Average ultrasound age is 33weeks 3days. Estimated due date by ultrasound is 09/05/2023. Estimated weight is 5lb 0.81oz, 2291 grams. 4 percentile. heart rate: 125bpm bpm. Cervix measures 2.8 cm. BPD: OFD: HC: AC: 29.9cm FL: 6.9cm HC/AC: 0.98 Cephalic index: FL/BPD: 0.87 FL/AC: 0.23 Amniotic fluid index: 13.97cm Qualitative AFV: 2 breathing movements: 2 Gross body movements: 2 Tone: 2 Biophysical profile score: 8 Doppler evaluation of the umbilical artery: SD ratio: 3.29 Resistive index: 0.7 No obvious anomalies evident.Kidney, profile, bladder, four-chamber heart, three-vessel cord appear normal. IMPRESSION: 1. Fetus in the cephalic presentation with a posterior placenta grade 3. 2. The fluid is within normal limits with an amniotic fluid index 14 cm. 3. Biophysical profile is 8/8. SD ratio is normal. 4. Fetus is globally small. There is symmetric growth restriction. 5. The ordering physician was notified of the small for gestation is status. Dictated by: Manolo Jaime MD 07/22/2023 12:58 Manolo Jaime MD in OV 07/22/2023 12:58
== END ==
PROVIDERS: Visit Provider Nurse Practitioner Obstetrics & Gynecology
DX: O36.5990 Maternal care for other known or suspected poor fetal growth, unspecified trimester, not applicable or unspecified (principal); Z3A.36 36 weeks gestation of pregnancy
CPT/HCPCS: 76816; 76819; 76820

== ENCOUNTER 2023-07-24 10:58 | Outpatient (CLI) | payer OTHER, SELFPAY ==
[2023-07-24 11:15] VITALS: BP 117/77; PULSE 76; RESP 18; TEMP 36.6; O2SAT 98; BMI 21.7
[2023-07-24 11:16] VITALS: BMI 21.7
--- NOTE | 2023-07-24 11:33 | US_ITS ---
PROCEDURE: US OB BIOPHYSICAL PROFILE CLINICAL INDICATION: Non reactive NST COMPARISON: FINDINGS: Transabdominal sonographic images of the pelvis were obtained. From her established due date she is 37weeks 0 days. The following parameters are obtained Viable fetus in the cephalic presentation with a posterior placenta grade 3. Amniotic fluid index: 8.48cm. Subjectively there appears to be adequate fluid. Qualitative AFV: 2 breathing movements: 2 Gross body movements: 2 Tone: 2 Biophysical profile score: 8 No obvious anomalies evident.Kidneys, four-chamber heart, stomach, bladder, three-vessel cord appear normal. IMPRESSION: 1. Viable fetus in the cephalic presentation with a posterior placenta 3. 2. The fluid is within normal limits with an amniotic fluid index of 8.48 cm. There is a 6.5 cm x 5 cm pocket on one of the PACS images. 3. Biophysical profile 06/23 with good breathing movement seen. Dictated by: Manolo Jaime MD 07/27/2023 07:32 Manolo Jaime MD in OV 07/27/2023 07:32
== END 2023-07-24 13:00 | disposition home or self-care (01) ==
LOC: OBOUT 10:59 → OB 11:03
PROVIDERS: Visit Provider Obstetrics & Gynecology
DX: Z34.93 Encounter for supervision of normal pregnancy, unspecified, third trimester (principal); Z3A.37 37 weeks gestation of pregnancy
CPT/HCPCS: 59025; 76819; G0463

== ENCOUNTER 2023-07-30 09:17 | Outpatient (CLI) | payer OTHER, SELFPAY ==
[2023-07-30 09:27] VITALS: BMI 21.1
[2023-07-30 09:28] VITALS: BP 114/78; PULSE 78; RESP 18; TEMP 36.6; O2SAT 99
[2023-07-30 09:38] LABS: Microscopic, Urine URINE MICROSCOPIC (MICROSCOPIC)
[2023-07-30 09:42] VITALS: BP 114/78; PULSE 78; RESP 18; TEMP 36.6; O2SAT 99; BMI 21.1
[2023-07-30 09:47] LABS: Appearance,Urine CLEAR (Clear); Bilirubin,Urine Negative (Negative); Blood, Urine Negative (Negative); Color,Urine YELLOW (Yellow); Glucose,Urine (UA) Negative (Negative); Ketones,Urine Negative (Negative); Leukocyte Esterase,Urine Negative (Negative); Nitrate,Urine Negative (Negative); Protein,Urine TRACE (Negative); Specific Gravity, Urine 1.025 (1.005-1.030)
[2023-07-30 10:28] LABS: Bacteria,Urine Trace /lpf; Squamous Epithelial Cell,Urine Occasional #/hpf (0-5); WBC,Urine Occasional #/hpf (0-3)
[2023-07-30 10:30] LABS: Amphetamine/Metha Screen,Urine Negative ng/ml (<1000); Barbiturates Screen,Urine Negative ng/ml (<200)
[2023-07-30 10:31] LABS: Benzodiazepines Screen,Urine Negative ng/ml (<200)
[2023-07-30 10:32] LABS: Cannabinoid Screen,Urine Positive ng/ml (<50); Cocaine Screen,Urine Negative ng/ml (<300)
[2023-07-30 10:33] LABS: Methadone Screen,Urine Negative ng/ml (<300)
[2023-07-30 10:34] LABS: Opiate Screen,Urine Negative ng/ml (<300); Phencyclidine Screen,Urine Negative ng/ml (<25)
== END 2023-07-30 10:40 | disposition home or self-care (01) ==
LOC: OBOUT 09:18 → OB 09:18
PROVIDERS: Visit Provider Obstetrics & Gynecology
DX: O26.893 Other specified pregnancy related conditions, third trimester (principal); Z3A.37 37 weeks gestation of pregnancy; R51.9 Headache, unspecified; R11.0 Nausea; H53.8 Other visual disturbances
CPT/HCPCS: 59025; 80305; 81001; G0463

== ENCOUNTER → 2023-07-31 10:15 | Outpatient (CLI) | payer OTHER, SELFPAY ==
[2023-07-31 10:42] LABS: Basophils % 0.4 % (0.1-2.0); Eosinophils # 0.1 K/mm3 (0.0-0.4); Eosinophils % 0.7 % (0.1-12.0); Hematocrit 41.4 % (37.0-47.0); Hemoglobin 13.5 g/dL (12.2-16.2); Lymphocytes # 1.8 K/mm3 (0.7-4.5); Mean Corpuscular HGB Conc 32.7 g/dL (31.8-35.4); Mean Corpuscular Hemoglobin 30.3 pg (27.0-31.2); Mean Corpuscular Volume 92.8 fl (81-99); Mean Platelet Volume 8.9 fl (7.4-10.4); Monocytes # 0.5 K/mm3 (0.1-1.0); Monocytes % 4.2 % (1.7-9.3); Neutrophils # 8.3 K/mm3 (1.8-7.8); Neutrophils % 77.7 % (37.0-80.0); Platelet Count 300 K/mm3 (142-424); Red Blood Count 4.46 M/mm3 (4.20-5.40); Red Cell Distribution Width 13.9 % (11.5-17.5); White Blood Count 10.7 K/mm3 (4.8-10.8)
[2023-07-31 11:15] LABS: Alanine Aminotransferase 17 U/L (12-78); Albumin Level 3.2 g/dl (3.5-5.0); Albumin/Globulin Ratio 1.1 (1.1-1.8); Alkaline Phosphatase 156 U/L (38-126); Anion Gap 9.4 mEq/L (5-15); Aspartate Amino Transferase 26 U/L (14-36); Bilirubin,Total 0.3 mg/dl (0.2-1.3); Blood Urea Nitrogen 3 mg/dl (7-17); Calcium 8.9 mg/dl (8.4-10.2); Carbon Dioxide 25 mmol/L (22.0-30.0); Chloride 105 mmol/L (98-107); Estimated Glomerular Filt Rate 146 ml/min (>60); GFR (African American) 177 ML/MIN (>60); Globulin 2.9 g/dL (1.3-3.2); Glucose 86 mg/dl (74-100); Potassium 3.4 mmoL/L (3.5-5.1); Sodium 136 mmol/L (136-145); Total Protein,Serum 6.1 g/dl (6.3-8.2); Uric Acid 4.5 mg/dl (2.5-6.2)
== END ==
PROVIDERS: Visit Provider Obstetrics & Gynecology
DX: Z34.93 Encounter for supervision of normal pregnancy, unspecified, third trimester (principal); Z3A.38 38 weeks gestation of pregnancy
CPT/HCPCS: 36415; 80053; 84550; 85025

== ENCOUNTER 2023-08-03 12:03 | Outpatient (CLI) | payer OTHER, SELFPAY ==
[2023-08-03 12:17] VITALS: BP 114/76; PULSE 72; RESP 16; TEMP 36.9; O2SAT 98; BMI 20.2
== END 2023-08-03 12:39 | disposition home or self-care (01) ==
LOC: OBOUT 12:04 → OB 12:05
PROVIDERS: PCP Nurse Practitioner Obstetrics & Gynecology; Visit Provider Obstetrics & Gynecology
DX: Z34.93 Encounter for supervision of normal pregnancy, unspecified, third trimester (principal); Z3A.38 38 weeks gestation of pregnancy
CPT/HCPCS: 59025; G0463

== ENCOUNTER 2023-08-05 05:14 | Inpatient (IN) | payer OTHER, SELFPAY ==
[2023-08-05] VITALS (8 sets, daily range): BP systolic 109–137; BP diastolic 51–85; PULSE 52–78; RESP 17–24; TEMP 36.1–36.6; O2SAT 97–100; BMI 20.2; BMI 20.4
[2023-08-05 06:02] LABS: Microscopic, Urine URINE MICROSCOPIC (MICROSCOPIC)
[2023-08-05 06:05] LABS: Basophils # 0.1 K/mm3 (0-0.2); Basophils % 0.4 % (0.1-2.0); Eosinophils # 0.2 K/mm3 (0.0-0.4); Eosinophils % 1.5 % (0.1-12.0); Hematocrit 39.7 % (37.0-47.0); Hemoglobin 12.9 g/dL (12.2-16.2); Lymphocytes # 2.3 K/mm3 (0.7-4.5); Lymphocytes % 19.8 % (10-50); Mean Corpuscular HGB Conc 32.5 g/dL (31.8-35.4); Mean Corpuscular Hemoglobin 30.3 pg (27.0-31.2); Mean Corpuscular Volume 93.4 fl (81-99); Mean Platelet Volume 8.7 fl (7.4-10.4); Monocytes # 0.5 K/mm3 (0.1-1.0); Monocytes % 4.5 % (1.7-9.3); Neutrophils # 8.6 K/mm3 (1.8-7.8); Neutrophils % 73.9 % (37.0-80.0); Platelet Count 296 K/mm3 (142-424); Red Blood Count 4.25 M/mm3 (4.20-5.40); Red Cell Distribution Width 13.8 % (11.5-17.5); White Blood Count 11.6 K/mm3 (4.8-10.8)
[2023-08-05 06:05] LABS: Appearance,Urine CLEAR (Clear); Bilirubin,Urine Negative (Negative); Blood, Urine Negative (Negative); Color,Urine YELLOW (Yellow); Glucose,Urine (UA) Negative (Negative); Ketones,Urine Negative (Negative); Leukocyte Esterase,Urine Negative (Negative); Nitrate,Urine Negative (Negative); Protein,Urine Negative (Negative); Specific Gravity, Urine 1.015 (1.005-1.030)
[2023-08-05 06:13] LABS: Alanine Aminotransferase 18 U/L (12-78); Albumin Level 3.1 g/dl (3.5-5.0); Alkaline Phosphatase 155 U/L (38-126); Anion Gap 11.2 mEq/L (5-15); Aspartate Amino Transferase 30 U/L (14-36); Bilirubin,Total 0.3 mg/dl (0.2-1.3); Blood Urea Nitrogen 3 mg/dl (7-17); Calcium 8.2 mg/dl (8.4-10.2); Carbon Dioxide 20 mmol/L (22.0-30.0); Chloride 108 mmol/L (98-107); Creatinine Clearance Estimated 155 mL/min (50-200); Estimated Glomerular Filt Rate 189 ml/min (>60); GFR (African American) 228 ML/MIN (>60); Globulin 3.1 g/dL (1.3-3.2); Glucose 76 mg/dl (74-100); Potassium 3.2 mmoL/L (3.5-5.1); Sodium 136 mmol/L (136-145); Total Protein,Serum 6.2 g/dl (6.3-8.2)
[2023-08-05 06:16] LABS: Amphetamine/Metha Screen,Urine Negative ng/ml (<1000); Barbiturates Screen,Urine Negative ng/ml (<200)
[2023-08-05 06:17] LABS: Benzodiazepines Screen,Urine Negative ng/ml (<200); Cannabinoid Screen,Urine Positive ng/ml (<50)
[2023-08-05 06:18] LABS: Cocaine Screen,Urine Negative ng/ml (<300)
[2023-08-05 06:19] LABS: Bacteria,Urine Trace /lpf; Methadone Screen,Urine Negative ng/ml (<300); Opiate Screen,Urine Negative ng/ml (<300); Squamous Epithelial Cell,Urine Occasional #/hpf (0-5); WBC,Urine Occasional #/hpf (0-3)
[2023-08-05 06:20] LABS: Phencyclidine Screen,Urine Negative ng/ml (<25)
--- NOTE | 2023-08-05 07:02 | P.PNANES_ITS ---
[facility] Disclaimer: The information contained in this section may have been updated after the patient was seen, as this information can be updated by other users. Medical History Hyperthyroidism affecting Hypokalemia Thyroiditis Surgical History History of section Family History Other Asthma Cancer Diabetes Family history of diabetes mellitus type II Heart attack Hyperlipidemia Hypertension Social History Smoking Status: Current every day smoker tobacco type: cigarettes packs per day: 1 second hand exposure: Yes alcohol intake: never substance use type: former substance user and marijuana current occupational status: unemployed Travel in the last 8 weeks: None [facility] Anesthesia Checklist Patient Identification Patient Identification: Arm Band and Verbal (Name & ) Structural Data Admitted From: Inpatient Planned Operative Procedure/s: Repeat C/S Consent for Planned Operative Procedure(s) Verified: Yes NPO Status Verified Time NPO: 00:00 Chart Verification Results Verified: CBC and BMP Additional verifications Patient : Yes Anesthesia Reactions: No Airway Assessment Mallampati Score:: Class III C-Spine Mobility Assessed: Yes TMJ Mobility Assessed: Yes Dentition: Edentulous Neurological Assessment Level of Consciousness: Awake Hx Seizures: No Numbness or tingling in extremities: No Anesthesia Plan Anesthesia Risk discussed: Yes Anesthesia Plan: Verified ASA Class: II Anesthesia Type: Spinal
--- NOTE | 2023-08-05 07:10 | EXP.HP ---
History of Present Illness *Admission Date: 08/05/23 *Reason for visit:: Section *History of present illness: Tabby Gil is a 27-year-old G2, P1 who presents at 38 and 5 for a repeat delivery. GABBY is 08/14/2023 based on last menstrual period and confirmed with first semester ultrasound. scheduled prior to 39 weeks secondary to IUGR with the in the 40th centile. The patient also had suspected gestational diabetes but was unable to complete her 3-hour GTT we will routinely check her blood sugars. She did desire a tubal ligation however she did not sign her KMA consent forms in time. On arrival the patient denied contractions, endorses movement and denies leakage of fluid A+, antibody negative, rubella nonimmune, RPR nonreactive, hepatitis B negative, hepatitis C negative, HIV negative, gonorrhea and Chlamydia negative GTT: 151 GBS positive Pap smear: NILM transformation zone present Most recent ultrasound on 07/24/2023: BPP 8 out of 8, posterior grade 3 placenta Ultrasound on 07/21/2023: EFW 5 pounds 0 ounces, 2291 grams, 4th percentile, SD ratio normal PFSH PFSH Disclaimer: The information contained in this section may have been updated after the patient was seen, as this information can be updated by other users. Medical History Hyperthyroidism affecting Hypokalemia Thyroiditis Surgical History History of section Family History Other Asthma Cancer Diabetes Family history of diabetes mellitus type II Heart attack Hyperlipidemia Hypertension Social History Smoking Status: Current every day smoker tobacco type: cigarettes packs per day: 1 second hand exposure: Yes alcohol intake: never substance use type: former substance user and marijuana current occupational status: unemployed Travel in the last 8 weeks: None Review of Systems Review of Systems Review of systems (narrative): Review of Systems Constitutional: Denies fever, chills, and sweats Eyes: Denies vision change/ pain Respiratory: Denies cough and shortness of breath Cardiovascular: Denies chest pain and lightheadedness Gastrointestinal: Admits abdominal pain with contractions. Denies nausea, vomiting. Genitourinary: Denies dysuria and incontinence Musculoskeletal: Denies shoulder pain and back pain Neurological: Denies change in speech or headaches Meds Home Medications and Allergies Home Medications Medication Instructions Recorded Confirmed Type vit no.95-ferrous 1 tab PO DAILY 04/08/23 07/31/23 History fumarate 28 mg-folic acid 800 mcg tablet () ondansetron 4 mg disintegrating 4 mg PO Q6H PRN 07/24/23 07/31/23 History tablet New Prescriptions to Start Prescriptions: Allergies Allergy/AdvReac Type Severity Reaction Status Date / Time No Known Allergies Allergy Verified 08/03/23 13:08 Exam Data for Last 24 hours Vital signs and Labs for Last 24 Hours: Temp Pulse Resp BP Pulse Ox O2 Del Method 97.9 F 78 18 133/85 97 Room Air 08/05/23 05:57 08/05/23 05:57 08/05/23 05:57 08/05/23 05:57 08/05/23 05:57 08/05/23 05:57 Laboratory Results - last 24 hr 08/05/23 05:22: Urine Color Yellow, Urine Appearance Clear, Urine pH 7.0, Ur Specific [place] 1.015, Urine Protein Negative, Urine Glucose (UA) Negative, Urine Ketones Negative, Urine Blood Negative, Urine Nitrate Negative, Urine Bilirubin Negative, Urine Urobilinogen 1.0, Ur Leukocyte Esterase Negative, Urine RBC None, Urine WBC Occasional, Ur Squamous Epith Cells Occasional, Urine Bacteria Trace, Urine Opiates Screen Negative, Urine Methadone Screen Negative, Ur Barbituates Screen Negative, Ur Phencyclidine Scrn Negative, Ur Amphetamines Screen N
--- NOTE | 2023-08-05 08:29 | EXP.ANES.I ---
[facility] Anesthesia Record Part I Anesthesia Record I Intake, IV Amount: 1,400 Hydration: Adequate Estimated blood loss (mL): 400 Urine output (mL): 200 Blood Pressure: 123/65 SaO2: 100 Pulse Rate: 62 Airway Patency: Patent Respiratory Rate: 24 Temperature: 97 F Patient is:: Awake Stable to PACU at:: 08:25
--- NOTE | 2023-08-05 08:42 | EXP.OP.NOTE ---
Date of procedure: 08/05/23 Pre-op Diagnosis:: 1. 38 weeks 5days gestation, [place] 2. Previous , desires repeat 3. Intrauterine growth restriction, 4th percentile 4. Gestational diabetes 5. GBS positive 6. Rh Positive 7. Desires sterilization Post-op Diagnosis:: 1. 38 weeks 5days gestation, [place] 2. Previous , desires repeat 3. Intrauterine growth restriction, 4th percentile 4. Gestational diabetes 5. GBS positive 6. Rh Positive Procedure performed:: Repeat Delivery Surgeon:: Precious Munson DO Marine Habitat Resource Specialist(s):: Maryjane Shah DO CIGARETTE STAMPER:: Elton Crabtree Anesthesia: spinal Estimated blood loss (mL): 400 Operative findings:: 1. Live viable female : Jori. Weight: 5pounds 12ounces. Apgars 7 and 9 at 1 and 5 minutes respectively 2. Normal-appearing fallopian tubes and ovaries bilaterally Operative note:: Medications: 2 g of Ancef Procedure explained in its entirety. The patient desired sterilization however she had not signed her consent forms 30 days prior to procedure and was unable to get a tubal with her surgery. She will be scheduled for a laparoscopic bilateral salpingectomy. The patient was counseled on the risks and benefits of section including bleeding, vascular injury, infection, and injury to the surrounding structures. Hemorrhage requiring life saving blood transfusion resulting in blood born viral infection or allergic reaction was explained and the patient consented to blood transfusion. Possible need for further operative measures prolonging recovery time and hospitalization reviewed to include hysterectomy. Procedure explained in its entirety and patient had no further questions. Consented to procedure. The patient was taken back to the operating room where adequate spinal anesthesia was obtained. Pneumatic compression stockings applied to lower extremities. Ancef 2g was given for infection prophylaxis. She was placed in the dorsal supine position Urinary catheter was placed and found to be draining clear urine. The patient was prepped and draped in sterile fashion. Anesthesia was tested and and found to be adequate. A Pfannenstiel skin incision was made with the scalpel. Subcutaneous bleeding vessels were cauterized with the bovie. The incision was taken down to the fascia with the bovie. The fascia was knicked in the midline and sharply extended laterally. The superior aspect of the fascia was grasped with Mariela clamps and the rectus muscle was taken down with the Bovie. The rectus muscle was sharply dissected from the midline with Mayos. This process was repeated inferiorly. The rectus muscles were in the midline, peritoneum was identified and entered bluntly. Girish O retractor was placed and the bladder was noted to be out of the operative field. A bladder flap was created with Metzenbaum scissors and Portuguese pickups. The lower uterine segment was easily identified, sharply incised, and entered bluntly with the surgeon's index finger. Incision was then extended in a superior and inferior fashion by blunt separation. Membranes were ruptured revealing clear fluid. The fetus was in cephalic presentation. The head was carefully elevated out of the pelvis. Fundal pressure was applied when head was brought into incision. The infants head was delivered without difficulty. The shoulder and body followed without complication. Delivery time: 0742The mouth and nose were suctioned with a bulb. The umbilical cord was clamped and cut. was taken to warmer for evaluation by the multi disciplined language analyst. Cord blood tempted to be collected however there was scant cord blood. The placenta was delivered via manual extraction and found to be normal and intact. 3 vessel cord was noted. IV Pitocin was initiated. Inside of the uterus was gently cleared of blood and clots with lap sponge. The hysterotomy was closed with 0 Vicryl in a running locked fashion. A small [id number]
[2023-08-05 08:58] LABS: POC Glucose,Bedside 83 (70-110)
[2023-08-05 12:22] LABS: Microscopic,Cath URINE MICROSCOPIC (MICROSCOPIC)
[2023-08-05 12:23] LABS: Appearance,Urine/Cath CLEAR (Clear); Bilirubin,Cath Negative (Negative); Blood, Urine/Cath Negative (Negative); Color,Urine/Cath YELLOW (Yellow); Glucose,Urine/Cath (UA) Negative (Negative); Ketones,Urine/Cath Negative (Negative); Leukocyte Esterase,Cath Negative (Negative); Nitrate,Cath Negative (Negative); PH,Urine/Cath 7.5 (5.0-8.5); Protein,Urine/Cath Negative (Negative); Urobilinogen,Cath 0.2 EU/dl (0.2)
[2023-08-05 12:35] LABS: Bacteria,Urine/Cath TRACE /lpf; Squamous Epithelial Ur./Cath Occasional #/hpf (0-5)
--- NOTE | 2023-08-05 12:58 | SW/DCPLANNER ---
Addendum entered by [facility] 08/12/23 09:45: Russell Wood [phone] w/ CPS called to ask questions regarding positive cord screen. Addendum entered by [facility] 08/11/23 14:54: Per Central Intake this case does meet criteria for investigation. Addendum entered by [facility] 08/11/23 12:58: cord screen resulted positive for THC: I have reported this to Central Intake ID#[id number]. Addendum entered by [facility] 08/06/23 07:38: Per Central Intake this report does NOT meet criteria. Addendum entered by [facility] 08/05/23 15:47: Infant urine is negative. I did report this case to Central Intake ID# [id number]. Original Note: I received a consult on this patient regarding: every day drug use. Patient was positive for THC the following dates: 01/11/23, 02/02/23, 04/08/23, 06/03/23, 07/21/23, 07/30/23 and at admission 08/05/23. Infant's cord screen has been collected and OB staff is currently waiting on urine drug screen. Infant female was born on 08/[birth year]: Miroslava Murphy. 's father was present at the time of my visit: Alpeshkillianelle Gunter 10/27/95. Patient, her parents (Sania and Jarred Gil) along w/ patient's other son (Ml Youssef 12/05/12) will reside at [address] [place] [address] in [place] [address]. Patient's contact number is [phone]. Patient stated that she has not had any past Social Service involvement. Patient is established w/ WIC. Patient stated that she has the following items at home: crib, carseat, clothing, diapers and bottle feeding. PED MD will be Dr Saab. Patient stated that she will have transportation to all follow up appointments. Patient stated that she did use THC due to loss of appetite and vomiting. Patient also stated that her PCP stated that THC would be in her system for a long period of time due to not having any fat and being stuck to her muscles . Once infant urine drug screen is resulted I will make a report to Central Intake. Patient and infant are planned to discharge home on 08/07/23 pending no setbacks.
--- NOTE | 2023-08-05 14:03 | EXP.ANES.II ---
[facility] Anesthesia Record Part II Anesthesia Record Part II Discharge Time: 08:55 Destination: Obstetric PACU nurse assessment reviewed?: Yes Patient Condition:: Good Anesthesia Complications:: None Swallowing reflex intact?: Yes Airway Patency: Patent Cyanosis?: No Blood Pressure: 128/67 SaO2: 97 Respiratory Rate: 18 Pulse Rate: 52 Temperature: 97.5 F Mental Status: Alert & Oriented Pain level:: 0 Nausea and/or vomitting:: None Intake, IV Amount: 0 Hydration: Adequate
[2023-08-06 04:20] VITALS: BP 135/78; PULSE 67; RESP 18; TEMP 36.8; O2SAT 97
[2023-08-06 06:48] LABS: Basophils % 0.2 % (0.1-2.0); Eosinophils # 0.2 K/mm3 (0.0-0.4); Eosinophils % 1.1 % (0.1-12.0); Lymphocytes % 14.3 % (10-50); Mean Corpuscular HGB Conc 32.5 g/dL (31.8-35.4); Mean Corpuscular Hemoglobin 30.2 pg (27.0-31.2); Mean Corpuscular Volume 93.1 fl (81-99); Mean Platelet Volume 8.6 fl (7.4-10.4); Monocytes # 0.6 K/mm3 (0.1-1.0); Monocytes % 3.9 % (1.7-9.3); Neutrophils # 11.1 K/mm3 (1.8-7.8); Neutrophils % 80.4 % (37.0-80.0); Platelet Count 267 K/mm3 (142-424); Red Blood Count 3.98 M/mm3 (4.20-5.40); Red Cell Distribution Width 13.6 % (11.5-17.5); White Blood Count 13.8 K/mm3 (4.8-10.8)
[2023-08-06 08:00] VITALS: BP 134/78; PULSE 61; RESP 18; TEMP 36.9; O2SAT 98
--- NOTE | 2023-08-06 13:52 | EXP.PN ---
Subjective *Date: 08/06/23 *Time: 16:51 Interval history: Lary is a 27 yo postop day #1 following a repeat low-transverse delivery. complicated by IUGR with the in the 4th percentile. The patient also had suspected gestational diabetes but was unable to complete her 3-hour GTT Doing well and was up and out of bed. +BM. Pain well controlled. tolerating p.o. without nausea or vomiting. Reports her lochia is scant. She is bottle-feeding her female infant. Ambulating, voiding difficulty or dysuria. Denies chest pain shortness of breath or pain in her legs. No further complaints at this time. Exam Data for Last 24 hours Vital signs and Labs for Last 24 Hours: Temp Pulse Resp BP Pulse Ox O2 Del Method 98.4 F 61 18 134/78 98 Room Air 08/06/23 08:00 08/06/23 08:00 08/06/23 08:00 08/06/23 08:00 08/06/23 08:00 08/06/23 08:00 Laboratory Results - last 24 hr 08/06/23 06:11: WBC 13.8 H, RBC 3.98 L, Hgb 12.0 L, Hct 37.0, MCV 93.1, MCH 30.2, MCHC 32.5, RDW 13.6, Plt Count 267, MPV 8.6, Neut % (Auto) 80.4 H, Lymph % (Auto) 14.3, [place] % (Auto) 3.9, Eos % (Auto) 1.1, Baso % (Auto) 0.2, Neut # (Auto) 11.1 H, Lymph # (Auto) 2.0, [place] # (Auto) 0.6, Eos # (Auto) 0.2, Baso # (Auto) 0.0 I & O for Last 24 hours: Intake & Output 08/03/23 08/04/23 08/05/23 08/06/23 23:59 23:59 23:59 23:59 Intake Total 1400 / 1400 Output Total 500 / 500 Balance 900 / 900 Weight 104 lb 0.014 oz Narrative: General: patient is alert oriented in no acute distress and responds appropriately to questions. Appears to be in minimal pain. Sitting up in the chair and doing well HEENT: NCAT, EOMI, moist mucous membranes, neck supple with full ROM Cardiovascular: RRR +S1/S2, no murmurs or rubs Pulmonary: Clear to auscultation bilaterally, nonlabored breathing, symmetric chest rise Abdominal: Fundus at the umbilicus, firm, and tenderness appropriate for the period. Extremities: trace edema, no tenderness or cyanosis noted Skin: Normal turgor, intact, warm. Negative for erythema, pallor, petechia, or lesions Neurologic: Negative for sensory or motor deficit Psychiatric: Normal affect, normal thought process, good judgment and insight, no depression or anxious mood appreciated. Constitutional Constitutional: no acute distress *Routine HEENT Exam Head: Present normocephalic Eye: Present EOMI and PERRL ENT: Present mucous membranes moist *Routine Neck Exam Neck: Present supple; Absent lymphadenopathy *Routine Respiratory Exam Respiratory: Present CTA bilaterally *Routine Cardiovascular Exam Cardiovascular: Present RRR *Routine Abdominal Exam Abdominal: Present soft and normoactive bowel sounds; Absent tenderness *Routine Extremities Exam Extremities: Absent cyanosis, clubbing or edema *Routine Skin Exam Skin: Present warm; Absent rash *Routine Neurological Exam Neurological: Present alert and oriented X3 Assessment and Plan *Assessment and plan (1) delivery delivered: Status: Acute Category: Medical Code(s): O82 - Encounter for delivery without indication Plan Stable. POD#1 s/p RLTCS -Doing well. VSS. Serial lochia and fundal checks. -Continue with perineal ice packs for discomfort -Hemoglobin: 12.9--> 12.0 -A+/antibody negative -Bottle feeding, female infant -Contraception: BSG, schedule in 6weeks -Follow-up 2 weeks for routine visit -Dispo: home in 1-3 days pending mother/infant status
[2023-08-06 16:30] VITALS: BP 140/85; PULSE 59; RESP 18; TEMP 36.7; O2SAT 97
[2023-08-06 20:09] VITALS: BP 148/75; PULSE 64; RESP 18; TEMP 36.9; O2SAT 98
--- NOTE | 2023-08-07 05:45 | EXP.DC.SUM ---
General Admission date:: 08/05/23 Discharge date: 08/07/23 HPI HPI HPI: Lary Gil is a 27-year-old G2, P1 who presents at 38 and 5 for a repeat delivery. GABBY is 08/14/2023 based on last menstrual period and confirmed with first semester ultrasound. scheduled prior to 39 weeks secondary to IUGR with the in the 40th centile. The patient also had suspected gestational diabetes but was unable to complete her 3-hour GTT we will routinely check her blood sugars. She did desire a tubal ligation however she did not sign her KMA consent forms in time. On arrival the patient denied contractions, endorses movement and denies leakage of fluid A+, antibody negative, rubella nonimmune, RPR nonreactive, hepatitis B negative, hepatitis C negative, HIV negative, gonorrhea and Chlamydia negative GTT: 151 GBS positive Pap smear: NILM transformation zone present Most recent ultrasound on 07/24/2023: BPP 8 out of 8, posterior grade 3 placenta Ultrasound on 07/21/2023: EFW 5 pounds 0 ounces, 2291 grams, 4th percentile, SD ratio normal Hospital Course Hospital Course Hospital Course: Lary is a 27 yo postop day #2 following a repeat low-transverse delivery. complicated by IUGR with the in the 4th percentile. The patient also had suspected gestational diabetes but was unable to complete her 3-hour GTT Doing well and was up and out of bed. +BM. Pain well controlled. tolerating p.o. without nausea or vomiting. Reports her lochia is scant. She is bottle-feeding her female infant. Ambulating, voiding difficulty or dysuria. Denies chest pain shortness of breath or pain in her legs. No further complaints at this time. Patient desires discharge home today. Patient is doing well and appropriate for discharge. Routine discharge instructions reviewed patient in detail. All questions and concerns were addressed. Reviewed return precautions with the patient in detail and she voiced understanding. Exam Data for Last 24 hours Vital signs and Labs for Last 24 Hours: Temp Pulse Resp BP Pulse Ox O2 Del Method 98.4 F 64 18 148/75 H 98 Room Air 08/06/23 20:08/06/23 20:08/06/23 20:08/06/23 20:08/06/23 20:08/06/23 20:09 Laboratory Results - last 24 hr 08/06/23 06:11: WBC 13.8 H, RBC 3.98 L, Hgb 12.0 L, Hct 37.0, MCV 93.1, MCH 30.2, MCHC 32.5, RDW 13.6, Plt Count 267, MPV 8.6, Neut % (Auto) 80.4 H, Lymph % (Auto) 14.3, [place] % (Auto) 3.9, Eos % (Auto) 1.1, Baso % (Auto) 0.2, Neut # (Auto) 11.1 H, Lymph # (Auto) 2.0, [place] # (Auto) 0.6, Eos # (Auto) 0.2, Baso # (Auto) 0.0 I & O for Last 24 hours: Intake & Output 08/04/23 08/05/23 08/06/23 08/07/23 23:59 23:59 23:59 23:59 Intake Total 1400 / 1400 Output Total 500 / 500 Balance 900 / 900 Weight 104 lb 0.014 oz Narrative: General: patient is alert oriented in no acute distress and responds appropriately to questions. Appears to be in minimal pain. resting in bed and doing well HEENT: NCAT, EOMI, moist mucous membranes, neck supple with full ROM Cardiovascular: RRR +S1/S2, no murmurs or rubs Pulmonary: Clear to auscultation bilaterally, nonlabored breathing, symmetric chest rise Abdominal: Fundus below the umbilicus, firm, and tenderness appropriate for the period. Extremities: trace edema, no tenderness or cyanosis noted Skin: Normal turgor, intact, warm. Negative for erythema, pallor, petechia, or lesions Neurologic: Negative for sensory or motor deficit Psychiatric: Normal affect, normal thought process, good judgment and insight, no depression or anxious mood appreciated. Incision site: Mildly tender. Clean Steri-Strips in place. No oozing, bleeding, erythema, drainage or signs of infection appreciated Constitutional Constitutional: no acute distress *Routine HEENT Exam Head: Present normocephalic Eye: Present EOMI and PERRL ENT: Present mucous membranes moist *Routine Neck Exam N
== END 2023-08-07 09:30 | disposition home or self-care (01) | DRG 788 ==
PROVIDERS: Obstetrics & Gynecology; Admitting Provider Nurse Practitioner Obstetrics & Gynecology; Visit Provider Nurse Practitioner Obstetrics & Gynecology
PROC: 10D00Z1 Extraction of Products of Conception, Low, Open Approach (ICD-10-PCS; CPT 59514; principal; 2023-08-05 07:30)
DX: O99.824 Streptococcus B carrier state complicating childbirth (principal); Z3A.38 38 weeks gestation of pregnancy; Z37.0 Single live birth; O99.284 Endocrine, nutritional and metabolic diseases complicating childbirth; O99.334 Smoking (tobacco) complicating childbirth; F17.210 Nicotine dependence, cigarettes, uncomplicated; O36.5930 Maternal care for other known or suspected poor fetal growth, third trimester, not applicable or unspecified; O24.429 Gestational diabetes mellitus in childbirth, unspecified control; Z23 Encounter for immunization
CPT/HCPCS: 59514; 36415; 59025; 80053; 80305; 81001; 82962; 85025; 86850; 88307; 94761; 96374; C9290; G0283; G0463; J2405

== ENCOUNTER 2023-09-30 19:07 | Emergency (ER) | payer OTHER, SELFPAY ==
--- NOTE | 2023-09-30 19:13 | HMH.EDGENADL ---
Discharge Plan Disposition Patient Disposition: Home, Self-Care Prescriptions Prescriptions: No Action PNV cmb#95-ferrous fumarate-FA [] 28 mg iron- 800 mcg tablet 1 tab PO DAILY nifedipine [Procardia XL] 30 mg tablet extended release 24hr 30 mg PO DAILY Qty: 30 2RF levonorgestrel-ethinyl estrad [Aviane] 0.1-20 mg-mcg tablet 1 tab PO DAILY Qty: 84 3RF nifedipine 60 mg tablet extended release 60 mg PO DAILY Qty: 30 2RF Referrals Follow up/Referrals: Provider,Referral, MD [Primary Care Provider] - See instructions Activity Restrictions/Add. Instructions Additional Instructions/Restrictions: Please follow-up with your primary care provider. Please return to the emergency department if you develop any new or worsening symptoms or become concerned for your health. Clinical Impressions Clinical Impression: URI (upper respiratory infection), Generalized body aches, COVID-19 Stand Alone Forms Stand Alone Forms: Work/School Release Discharge ED Provider: [facility] HPI General Chief complaint: Fever Stated complaint: fever/chills, body aches Time Seen by Provider: 09/30/23 19:11 History of Present Illness HPI narrative: 28-year-old female, history of hypertension, presents with generalized body aches and fever with mild sore throat times a few hours. No chest pain or shortness of breath. No other symptoms reported. Related Data Home Medications Medication Instructions Recorded Confirmed vit no.95-ferrous 1 tab PO DAILY Supplement 04/08/23 09/17/23 fumarate 28 mg-folic acid 800 mcg tablet () Previous Rx's Medication Instructions Recorded nifedipine 30 mg tablet,extended 30 mg PO DAILY #30 tabs 08/20/23 release 24 hr (Procardia XL) levonorgestrel-ethinyl estradiol 1 tab PO DAILY #84 tabs 09/17/23 0.1 mg-20 mcg tablet (Aviane) nifedipine 60 mg tablet,extended 60 mg PO DAILY #30 tabs 09/17/23 release Allergies Allergy/AdvReac Type Severity Reaction Status Date / Time No Known Allergies Allergy Verified 09/17/23 11:24 [facility] Disclaimer: The information contained in this section may have been updated after the patient was seen, as this information can be updated by other users. Medical History (Updated 11/16/23 @ 00:27 by [place] MD) Hyperthyroidism affecting Hypokalemia Thyroiditis Surgical History History of section Family History Other Asthma Cancer Diabetes Family history of diabetes mellitus type II Heart attack Hyperlipidemia Hypertension Social History Smoking Status: Current every day smoker tobacco type: cigarettes packs per day: 1 second hand exposure: Yes alcohol intake: never substance use type: former substance user and marijuana current occupational status: unemployed Travel in the last 8 weeks: None ROS Obtained: Yes All systems reviewed & no additional complaints except as documented Physical Exam General General appearance: alert and in no apparent distress Head Head exam: atraumatic and normocephalic Eye Eye exam: Present normal appearance, PERRL and EOMI ENT ENT exam: Present normal external ear exam and other (Mild posterior oropharyngeal erythema without exudate) Neck Neck exam: Present normal inspection and full ROM Chest Chest inspection: Present normal inspection and symmetric chest wall rise; Absent tenderness Respiratory Respiratory exam: Present normal lung sounds bilaterally; Absent respiratory distress Cardiovascular Cardiovascular exam: Present regular rate and normal rhythm Abdominal Exam Abdominal exam: Present soft; Absent distention, tenderness or guarding Extremities Exam Extremities exam: Present normal inspection; Absent edema or joint swelling Back Exam B
[2023-09-30 19:23] VITALS: BP 117/74; PULSE 84; RESP 20; TEMP 37.1; O2SAT 97; BMI 18.8
[2023-09-30 19:40] LABS: Influenza A, PCR Not Detected (NotDetected); Influenza B, PCR Not Detected (NotDetected)
[2023-09-30 19:47] VITALS: BP 119/81; PULSE 81; RESP 20; TEMP 37.1; O2SAT 97
[2023-09-30 19:52] LABS: Strep Scrn Group A (Rapid) Negative (Negative)
[2023-09-30 20:06] LABS: Coronavirus 19, PCR Detected (NotDetected)
== END 2023-09-30 19:51 | disposition home or self-care (01) ==
PROVIDERS: Emergency Provider Emergency Medicine
DX: U07.1 COVID-19 (principal); R50.9 Fever, unspecified; R07.0 Pain in throat; M79.18 Myalgia, other site; I10 Essential (primary) hypertension; F17.210 Nicotine dependence, cigarettes, uncomplicated
CPT/HCPCS: 87430; 87636; 99283

== ENCOUNTER → 2023-10-20 07:34 | Outpatient (CLI) | payer OTHER, SELFPAY ==
[2023-10-20 16:59] LABS: Basophils # 0.1 K/mm3 (0-0.2); Basophils % 0.7 % (0.1-2.0); Eosinophils # 0.2 K/mm3 (0.0-0.4); Eosinophils % 2.5 % (0.1-12.0); Hematocrit 40.5 % (37.0-47.0); Hemoglobin 13.7 g/dL (12.2-16.2); Lymphocytes # 2.2 K/mm3 (0.7-4.5); Lymphocytes % 28.8 % (10-50); Mean Corpuscular HGB Conc 33.8 g/dL (31.8-35.4); Mean Corpuscular Hemoglobin 30.3 pg (27.0-31.2); Mean Corpuscular Volume 89.5 fl (81-99); Mean Platelet Volume 7.3 fl (7.4-10.4); Monocytes # 0.3 K/mm3 (0.1-1.0); Monocytes % 3.6 % (1.7-9.3); Neutrophils % 64.4 % (37.0-80.0); Platelet Count 463 K/mm3 (142-424); Red Blood Count 4.53 M/mm3 (4.20-5.40); Red Cell Distribution Width 13.7 % (11.5-17.5); White Blood Count 7.8 K/mm3 (4.8-10.8)
[2023-10-20 18:24] LABS: Hemoglobin A1C 5.1 % (4.0-6.0)
[2023-10-20 19:03] LABS: Alanine Aminotransferase 14 U/L (12-78); Albumin/Globulin Ratio 1.4 (1.1-1.8); Alkaline Phosphatase 97 U/L (38-126); Anion Gap 8.7 mEq/L (5-15); Aspartate Amino Transferase 23 U/L (14-36); Bilirubin,Total 0.4 mg/dl (0.2-1.3); Blood Urea Nitrogen 4 mg/dl (7-17); Calcium 8.7 mg/dl (8.4-10.2); Carbon Dioxide 28 mmol/L (22.0-30.0); Chloride 103 mmol/L (98-107); Chol/HDL Ratio 6.1 (1-3.5); Cholesterol 257 mg/dl (140-200); Estimated Glomerular Filt Rate 117 ml/min (>60); GFR (African American) 142 ML/MIN (>60); Globulin 2.8 g/dL (1.3-3.2); Glucose 73 mg/dl (74-100); HDL Cholesterol 42 mg/dl (40-60); Potassium 3.7 mmoL/L (3.5-5.1); Sodium 136 mmol/L (136-145); Total Protein,Serum 6.8 g/dl (6.3-8.2); Triglycerides 234 mg/dl (30-150); VLDL Cholesterol 47 mg/dL (0-40)
[2023-10-20 19:17] LABS: Free T4 (Free Thyroxine) 1.11 ng/dl (0.78-2.19)
[2023-10-20 19:19] LABS: Direct LDL Cholesterol 151.57 mg/dL (100-129)
[2023-10-20 19:27] LABS: 25-OH Vitamin D, Total 26.1 ng/mL (30-100)
[2023-10-20 19:36] LABS: Thyroid Stimulating Hormone 0.56 uIU/mL (0.465-4.68)
== END ==
PROVIDERS: PCP Internal Medicine; Visit Provider Internal Medicine
DX: Z00.00 Encounter for general adult medical examination without abnormal findings (principal); Z13.29 Encounter for screening for other suspected endocrine disorder; Z13.21 Encounter for screening for nutritional disorder; Z13.1 Encounter for screening for diabetes mellitus; Z13.220 Encounter for screening for lipoid disorders; E55.9 Vitamin D deficiency, unspecified; I10 Essential (primary) hypertension; E78.5 Hyperlipidemia, unspecified; Z72.0 Tobacco use; Z79.899 Other long term (current) drug therapy
CPT/HCPCS: 80053; 80061; 82306; 83036; 84439; 84443; 85025

== ENCOUNTER 2024-03-21 19:22 | Emergency (ER) | payer OTHER, SELFPAY ==
[2024-03-21 19:23] VITALS: BP 136/90; PULSE 86; RESP 20; TEMP 36.6; O2SAT 99; BMI 18.1
--- NOTE | 2024-03-21 19:27 | ECG_ITS ---
APPROVED REPORT Exam: Resting ECG HR:65 bpm ECG Measurements Heart Rate 65 AXES GA 148 P 80 QRSd 84 QRS 83 QT 437 T 70 QTc 448 Conclusion SINUS RHYTHM WITH SINUS ARRHYTHMIA POSSIBLE RIGHT VENTRICULAR CONDUCTION DELAY [RSR (QR) IN V1/V2] BORDERLINE ECG UNCONFIRMED REPORT Electronically signed by : Manuel Raza, 03/21/2024 22:53:49
--- NOTE | 2024-03-21 19:35 | HMH.EDGENADL ---
Discharge Plan Disposition Patient Disposition: Home, Self-Care Prescriptions Prescriptions: New promethazine 25 mg tablet 25 mg PO TID PRN (Reason: nausea and vomiting) 5 Days Qty: 20 0RF ondansetron 4 mg tablet,disintegrating 4 mg PO Q6H PRN (Reason: nausea and vomiting) 5 Days Qty: 20 0RF No Action benzonatate 100 mg capsule 100 mg PO TID PRN (Reason: cough) Qty: 30 0RF ondansetron 4 mg tablet,disintegrating 4 mg PO Q8H PRN (Reason: nausea and vomiting) Qty: 20 0RF amoxicillin-pot clavulanate 875-125 mg tablet 1 tab PO BID 10 Days Qty: 20 0RF Referrals Follow up/Referrals: Precious Munson DO [Staff Physician] - See instructions Activity Restrictions/Add. Instructions Additional Instructions/Restrictions: You are found to have a 13-week intrauterine that appears healthy. He has significant nausea and vomiting in the setting of . You are dehydrated and were given IV fluids. Multiple nausea medications have been sent home with you please take your Phenergan first and use Zofran as a backup. Follow-up with Dr. Munson and return to the emergency room with any significant worsening of your symptoms. Clinical Impressions Clinical Impression: Nonepileptic episode, Nausea vomiting and diarrhea, Incidental intrauterine Instructions Patient Instructions: DI for Diarrhea and Traveler's Diarrhea -- Adult, DI for Diarrhea and Traveler's Diarrhea -- Child, DI for Nausea -- Adult, DI for Nausea -- Child Discharge ED Provider: Dawson Raza General Adult HPI General Chief complaint: Nausea/Vomiting/Diarrhea Stated complaint: N/V/D Time Seen by Provider: 03/21/24 19:32 Mode of Arrival: Wheelchair Source of Information: Patient and Significant Other Limitations: No Limitations Description of Symptoms (Recalled from ER Triage Doc. by RN): Pt arrives via w/c with complaints of N/V/D since this morning. Pt states she has had dark stools and some bright blood in her emesis. Pt appears to be having pseudo seizure, ammonia stick used, pt is A/O at this time. Dr Raza at bedside. History of Present Illness HPI narrative: Patient is a 28-year-old female with a history of psychogenic nonepileptic seizures presents today with nausea vomiting and diarrhea. In triage she had a convulsive episode and was brought emergently back to room 4. Family at bedside states that she has seizures when she is very stressed out. Upon awakening further history was able to be obtained she states that she had some dark-colored stool no significant abdominal pain no fevers chills her fianc? at the bedside is concerned that she may be as she had a presentation similar to this in the past. She denies any vaginal bleeding vaginal discharge urinary symptoms etc. Related Data Previous Rx's Medication Instructions Recorded amoxicillin 875 mg-potassium 1 tab PO BID 10 days #20 tabs 02/25/24 clavulanate 125 mg tablet benzonatate 100 mg capsule 100 mg PO TID PRN cough #30 caps 02/25/24 ondansetron 4 mg disintegrating 4 mg PO Q8H PRN nausea and 02/25/24 tablet vomiting #20 tabs ondansetron 4 mg disintegrating 4 mg PO Q6H PRN nausea and 03/21/24 tablet vomiting 5 days #20 tabs promethazine 25 mg tablet 25 mg PO TID PRN nausea and 03/21/24 vomiting 5 days #20 tabs Allergies Allergy/AdvReac Type Severity Reaction Status Date / Time No Known Allergies Allergy Verified 02/25/24 14:51 [facility] Disclaimer: The information contained in this section may have been updated after the patient was seen, as this information can be updated by other users. Medical History Thyroiditis Hypokalemia Hyperthyroidism affecting Surgical History History of section Family History Other Asthma Cancer Diabetes Family history of diabetes mellitus type II Heart attack Hyperlipidemia Hypertension Social History Smoking Status: Current every day smoker tobacco type: cigarettes packs per day: 1 second hand exposure: Yes alcohol intake: never substance use type: former substance user and marijuana current occupational status: unemployed Travel in the last 8 weeks: None ROS Obtained: Yes All systems reviewed & no additional complaints except as documented Physical Exam General General appearance: alert Comment: Generalized convulsions but she is awake interactive speaking Respiratory Respiratory exam: Present normal lung sounds bilaterally Cardiovascular Cardiovascular exam: Present regular rate and normal rhythm Abdominal Exam Abdominal exam: Present soft; Absent distention or tenderness Neurological Exam Neurological exam: Present alert and oriented X3 Medical Decision Making Rigo Inquiry Pt receiving controlled substance: No Vital Signs: 03/21/24 19:23 03/21/24 20:01 Temperature 98 F Temperature Source Oral Pulse Rate [Left] 86 Respiratory Rate 20 20 Blood Pressure 120/77 Blood Pressure [Right Arm] 136/90 Blood Pressure Mean 91 Blood Pressure Mean [Right Arm] 105 Blood Pressure Source [Right Arm] Automatic Cuff Blood Pressure Position [Right Arm] Supine 02 Sat by Pulse Oximetry 99 Oxygen Delivery Method Room Air Lab Data Lab results reviewed: Yes I reviewed the patient's lab results. Lab Results 03/21/24 19:20: WBC 15.3 H, RBC 4.72, Hgb 14.0, Hct 43.1, MCV 91.4, MCH 29.7, MCHC 32.5, RDW 14.2, Plt Count 399, MPV 8.3, Neut % (Auto) 87.0 H, Lymph % (Auto) 11.1, [place] % (Auto) 1.4 L, Eos % (Auto) 0.3, Baso % (Auto) 0.2, Neut # (Auto) 13.3 H, Lymph # (Auto) 1.7, [place] # (Auto) 0.2, Eos # (Auto) 0.0, Baso # (Auto) 0.0, Total Counted 100, Neutrophils % (Manual) 86 H, Lymphocytes % (Manual) 10, Monocytes % (Manual) 4, Platelet Estimate Normal, RBC Morphology Normal, Sodium 135 L, Potassium 3.2 L, Chloride 104, Carbon Dioxide 24, Anion Gap 10.2, BUN 6 L, Creatinine 0.40 L, Estimated Creat Clear 137, Estimated GFR 187, Est GFR ( Amer) 227, Glucose 121 H, Calcium 9.5, Phosphorus 4.0, Magnesium 1.7, Total Bilirubin 0.7, AST 32, ALT 28, Alkaline Phosphatase 82, Total Protein 7.3, Albumin 4.3, Globulin 3.0, Albumin/Globulin Ratio 1.4, Lipase 47, Serum HCG, Qual Positive 03/21/24 19:20 03/21/24 19:20 Orders (Tests/Meds): ED MEDICATIONS Discontinued Medications Generic Name Dose Route Start Last Admin Trade Name Freq PRN Reason Stop Dose Admin Lactated Ringer's 1,000 mls @ 999 mls/hr 03/21/24 19:45 03/21/24 19:37 Lactated Ringer's 1000 Ml Bag IV 03/21/24 20:45 999 mls/hr .Q1H1M ANITA Administration Ondansetron HCl 4 mg 03/21/24 19:34 03/21/24 19:38 Ondansetron 4mg/2ml Vial IV 03/21/24 19:35 4 mg ONCE ONE Administration Potassium Chloride 40 meq 03/21/24 20:22 Potassium Chloride 20meq Tab PO 03/21/24 20:23 ONCE ONE Promethazine HCl 12.5 mg 03/21/24 20:14 Promethazine Hcl 25mg/Ml 1ml Vial IV 03/21/24 20:15 ONCE ONE Sodium Chloride 25 ml 03/21/24 20:14 Sodium Chloride 0.9% 25ml Bag IV 03/21/24 20:15 ONCE ONE ORDERS Category Date Time Status POCUS Point of Care (ER Only) Stat Exams 03/21/24 20:03 Ordered CBC w/Auto Diff [Complete Blood Count Auto Diff] Stat Lab 03/21/24 19:20 Completed CMP [Comprehensive Metabolic Panel] Stat Lab 03/21/24 19:20 Completed HCG Qualitative, Serum Stat Lab 03/21/24 19:20 Completed Lipase Stat Lab 03/21/24 19:20 Completed Magnesium Stat Lab 03/21/24 19:20 Completed Phosphorous Stat Lab 03/21/24 19:20 Completed Medical Decision Narrative: 28-year-old female presents today with generalized convulsive episode but she was awake interactive with me this was immediately broken with a ammonia stick she was conversant the entire time this is consistent with nonepileptic seizure. She is also presenting with nausea vomiting diarrhea significant anxiety and she is very concerned about getting an IV she requested that we place a towel over her head so that she cannot see has put an IV into her. She became very anxious and began shaking again during that time but did not have another episode. IV fluids nausea medicine have been administered. Will check basic electrolytes her abdominal exam is benign this is not consistent with surgical emergency. Addition we will check test. Reassessment 816 patient feeling somewhat better still nauseated will administer Phenergan and reassess. ED observation order has been placed due to serial antiemetic medications. Patient incidentally had a positive test. I did limited bedside ultrasound which demonstrated an intrauterine of 13 weeks with normal heart rate. She will follow-up with SCREEN PRINTING PRESS OPERATOR regarding this. This is not consistent with an ectopic etc. Will reassess after her antiemetic medications have been allowed to work for a longer period of time. Reassessment 9:13 PM patient feeling much better tolerating p.o. serial abdominal exams are benign. She had mild hypokalemia and this was replaced. She will follow-up with Dr. Munson she will return any significant worsening of her symptoms. Phenergan and Zofran were administered and she was sent home with both these medications as well advised to take Phenergan primarily and Zofran as a backup. She understood this and return precautions and follow-up instructions and was discharged in improved and stable condition. Critical Care Critical Care Time Critical Care Time: No
[2024-03-21] MEDS: LACTATED RINGERS 1000ML 1,000 ML 999 ML IV (19:37)
[2024-03-21] MEDS: ONDANSETRON 4MG/2ML VIAL 4 MG IV (19:38)
[2024-03-21 19:51] LABS: Chloride 104 mmol/L (98-107); Potassium 3.2 mmoL/L (3.5-5.1); Sodium 135 mmol/L (136-145)
[2024-03-21 19:54] LABS: Alanine Aminotransferase 28 U/L (12-78); Albumin Level 4.3 g/dl (3.5-5.0); Albumin/Globulin Ratio 1.4 (1.1-1.8); Alkaline Phosphatase 82 U/L (38-126); Anion Gap 10.2 mEq/L (5-15); Aspartate Amino Transferase 32 U/L (14-36); Bilirubin,Total 0.7 mg/dl (0.2-1.3); Blood Urea Nitrogen 6 mg/dl (7-17); Calcium 9.5 mg/dl (8.4-10.2); Carbon Dioxide 24 mmol/L (22.0-30.0); Creatinine Clearance Estimated 137 mL/min (50-200); Estimated Glomerular Filt Rate 187 ml/min (>60); GFR (African American) 227 ML/MIN (>60); Glucose 121 mg/dl (74-100); Lipase 47 U/L (23-300); Total Protein,Serum 7.3 g/dl (6.3-8.2)
[2024-03-21 19:55] LABS: HCG Qualitative, Serum Positive (Negative); Magnesium 1.7 mg/dl (1.6-2.3)
[2024-03-21 19:58] LABS: Basophils % 0.2 % (0.1-2.0); Eosinophils % 0.3 % (0.1-12.0); Hematocrit 43.1 % (37.0-47.0); Lymphocytes # 1.7 K/mm3 (0.7-4.5); Lymphocytes % 11.1 % (10-50); Mean Corpuscular HGB Conc 32.5 g/dL (31.8-35.4); Mean Corpuscular Hemoglobin 29.7 pg (27.0-31.2); Mean Corpuscular Volume 91.4 fl (81-99); Mean Platelet Volume 8.3 fl (7.4-10.4); Monocytes # 0.2 K/mm3 (0.1-1.0); Monocytes % 1.4 % (1.7-9.3); Neutrophils # 13.3 K/mm3 (1.8-7.8); Platelet Count 399 K/mm3 (142-424); Red Blood Count 4.72 M/mm3 (4.20-5.40); Red Cell Distribution Width 14.2 % (11.5-17.5); White Blood Count 15.3 K/mm3 (4.8-10.8)
[2024-03-21 20:01] VITALS: BP 120/77; RESP 20
[2024-03-21 20:01] LABS: MANUAL DIFFERENTIAL MANUAL DIFFERENTIAL (MANUAL DIFF)
[2024-03-21 20:30] VITALS: BP 118/58; PULSE 56; RESP 21; O2SAT 100
[2024-03-21 20:42] LABS: Lymphocytes % 10 % (10-50); Monocytes % 4 % (2-9); Neutrophils % 86 % (42-76); Platelet Estimate Normal; RBC Morphology Normal; Total Cells Counted 100
[2024-03-21 21:00] VITALS: BP 129/60; PULSE 53; RESP 19; O2SAT 100
[2024-03-21] MEDS: POTASSIUM CHLORIDE 20MEQ TAB 40 MEQ PO (21:17)
[2024-03-21] MEDS: PROMETHAZINE HCL 25MG/ML 1ML VIAL 12.5 MG IV (21:17)
[2024-03-21 21:24] VITALS: BP 125/80; PULSE 87; RESP 16; TEMP 36.6; O2SAT 98
--- NOTE | 2024-03-21 21:26 | PC.NURSE ---
Pt removed her IV, new IV placed for phenergan, phenergan currently being administered then d/c
[2024-03-21 21:30] VITALS: BP 115/63; PULSE 53; O2SAT 100
== END 2024-03-21 21:52 | disposition home or self-care (01) ==
PROVIDERS: Emergency Provider Student in an Organized Health Care Education/Training Program; PCP Internal Medicine
DX: O26.892 Other specified pregnancy related conditions, second trimester; R56.9 Unspecified convulsions; E87.6 Hypokalemia; O21.9 Vomiting of pregnancy, unspecified; R19.7 Diarrhea, unspecified; Z3A.13 13 weeks gestation of pregnancy
CPT/HCPCS: 80053; 83690; 83735; 84100; 84703; 85007; 85025; 93005; 96361; 96374; 96375; 99285; J2405

== ENCOUNTER 2024-03-23 14:10 | Emergency (ER) | payer OTHER, SELFPAY ==
[2024-03-23 14:12] VITALS: BP 120/74; PULSE 77; RESP 18; TEMP 36.8; O2SAT 97; BMI 18.1
[2024-03-23 14:30] VITALS: BP 115/72; PULSE 71; O2SAT 98
[2024-03-23 15:00] VITALS: BP 112/66; PULSE 68; O2SAT 94
[2024-03-23 15:00] LABS: Chloride 99 mmol/L (98-107)
[2024-03-23 15:01] LABS: Basophils % 0.2 % (0.1-2.0); Eosinophils # 0.1 K/mm3 (0.0-0.4); Eosinophils % 0.6 % (0.1-12.0); Hematocrit 44.3 % (37.0-47.0); Hemoglobin 14.8 g/dL (12.2-16.2); Lymphocytes # 1.3 K/mm3 (0.7-4.5); Lymphocytes % 6.5 % (10-50); Mean Corpuscular HGB Conc 33.4 g/dL (31.8-35.4); Mean Corpuscular Hemoglobin 30.2 pg (27.0-31.2); Mean Corpuscular Volume 90.5 fl (81-99); Mean Platelet Volume 7.8 fl (7.4-10.4); Monocytes # 0.6 K/mm3 (0.1-1.0); Monocytes % 3.2 % (1.7-9.3); Neutrophils # 17.2 K/mm3 (1.8-7.8); Neutrophils % 89.5 % (37.0-80.0); Platelet Count 376 K/mm3 (142-424); Red Blood Count 4.89 M/mm3 (4.20-5.40); Red Cell Distribution Width 14.6 % (11.5-17.5); White Blood Count 19.2 K/mm3 (4.8-10.8)
[2024-03-23 15:02] LABS: Blood Urea Nitrogen 11 mg/dl (7-17); Creatinine Clearance Estimated 137 mL/min (50-200); Estimated Glomerular Filt Rate 187 ml/min (>60); GFR (African American) 227 ML/MIN (>60)
[2024-03-23 15:03] LABS: Alanine Aminotransferase 17 U/L (12-78); Albumin Level 3.9 g/dl (3.5-5.0); Albumin/Globulin Ratio 1.3 (1.1-1.8); Alkaline Phosphatase 80 U/L (38-126); Aspartate Amino Transferase 25 U/L (14-36); Bilirubin,Total 0.7 mg/dl (0.2-1.3); Calcium 9.3 mg/dl (8.4-10.2); Carbon Dioxide 26 mmol/L (22.0-30.0); Globulin 2.9 g/dL (1.3-3.2); Glucose 114 mg/dl (74-100); Lactic Acid 1.4 mmol/L (0.7-2.1); Potassium 2.8 mmoL/L (3.5-5.1); Total Protein,Serum 6.8 g/dl (6.3-8.2)
[2024-03-23 15:04] LABS: MANUAL DIFFERENTIAL MANUAL DIFFERENTIAL (MANUAL DIFF)
--- NOTE | 2024-03-23 15:05 | PC.NURSE ---
Dr. Damon notified of critical potassium
[2024-03-23 15:07] LABS: Anion Gap 11.8 mEq/L (5-15)
[2024-03-23 15:08] LABS: Sodium 134 mmol/L (136-145)
--- NOTE | 2024-03-23 15:12 | US_ITS ---
PROCEDURE: US OB TRANSVAGINAL CLINICAL INDICATION: , abd pain, no formal US COMPARISON: No exams were available for comparison FINDINGS: Transvaginal sonographic images of the pelvis were obtained. Her last menstrual period is unknown. An intrauterine gestational sac is present with a pole with a crown-rump length of 7.47cm This correlates to a gestational age of 14weeks 1day. heart tones are present with an FHR of 161bpm. The right ovary is seen and appears normal. The left ovary is seen and appears normal. There is no fluid in the cul-de-sac. IMPRESSION: 1. Viable fetus within the uterine cavity. 2. The measurements average 14 weeks 1 day. The GABBY from this ultrasound will be 09/20/2024. 3. Both ovaries are seen and appear normal. 4. Limited anatomical scan appears normal. Dictated by: Manolo Jaime MD 03/23/2024 16:06 Manolo Jaime MD in OV 03/23/2024 16:06
[2024-03-23 15:30] VITALS: BP 124/87; PULSE 73; O2SAT 94
[2024-03-23] MEDS: ONDANSETRON 4MG/2ML VIAL 4 MG IV (15:30)
[2024-03-23] MEDS: LACTATED RINGERS 1000ML 1,000 ML 999 ML IV (15:31)
[2024-03-23 15:32] LABS: VBG PH 7.46 mmol/L (7.31-7.41)
--- NOTE | 2024-03-23 15:33 | PC.NURSE ---
pt to u/s via wheelchair
[2024-03-23 15:42] LABS: Microscopic, Urine URINE MICROSCOPIC (MICROSCOPIC)
--- NOTE | 2024-03-23 15:42 | ED_ITS ---
Discharge Plan Disposition Patient Disposition: Home, Self-Care Prescriptions Prescriptions: New cefdinir 300 mg capsule 300 mg PO BID 14 Days Qty: 28 0RF metoclopramide HCl [Reglan] 10 mg tablet 10 mg PO Q6H PRN (Reason: nausea and vomiting) Qty: 20 0RF Vitamin 27 mg iron- 800 mcg tablet 1 tab PO DAILY Qty: 30 5RF No Action benzonatate 100 mg capsule 100 mg PO TID PRN (Reason: cough) Qty: 30 0RF ondansetron 4 mg tablet,disintegrating 4 mg PO Q8H PRN (Reason: nausea and vomiting) Qty: 20 0RF amoxicillin-pot clavulanate 875-125 mg tablet 1 tab PO BID 10 Days Qty: 20 0RF promethazine 25 mg tablet 25 mg PO TID PRN (Reason: nausea and vomiting) 5 Days Qty: 20 0RF ondansetron 4 mg tablet,disintegrating 4 mg PO Q6H PRN (Reason: nausea and vomiting) 5 Days Qty: 20 0RF Referrals Follow up/Referrals: Provider,Referral, MD [Primary Care Provider] - See instructions Activity Restrictions/Add. Instructions Additional Instructions/Restrictions: Call tomorrow to schedule close follow-up with Dr. Munson. Take cefdinir twice daily for 14 days for the entire course to completely treat your urinary tract infection it appears to be affecting your kidney, called pyelonephritis. Reglan every 6 hours as needed for vomiting. Be sure to continue taking a vitamin every single day. It is essential for baby's growth, neurologic development, and can also help with your nausea. Try to refrain from smoking in , talk to your SOFTWARE DEVELOPMENT COORDINATOR about maintenance options. Call your family doctor to establish care for this visit to the emergency department and schedule follow-up within 48 hours to ensure improvement. If you have any worsening of your condition or any other concerning signs or symptoms, return to the emergency department or your primary care doctor for further evaluation. Clinical Impressions Clinical Impression: Acute hypokalemia, Pyelonephritis affecting , Vomiting, Diarrhea Instructions Patient Instructions: DI for Diarrhea and Traveler's Diarrhea -- Adult, DI for Diarrhea and Traveler's Diarrhea -- Child, DI for Nausea -- Adult, DI for Nausea -- Child Discharge ED Provider: Ross Damon General Adult HPI General Chief complaint: Nausea/Vomiting/Diarrhea Stated complaint: vomitting, dehydrated, seizures Time Seen by Provider: 03/23/24 15:04 Mode of Arrival: Wheelchair Source of Information: Patient Limitations: No Limitations Description of Symptoms (Recalled from ER Triage Doc. by RN): Patient states she is 14 weeks . Reports N/V/D and unable to eat for 3 days. Patient also reports seizure like activity for the last 3-4 days. Last seizure being 12:50 today. Patient reports she can feel the seizure coming on. patient states she has a history in the past of seizures. History of Present Illness HPI narrative: Please note that above description of symptoms, in this electronic medical record under categorization of recalled from ER triage doctor by RN are reflective of an initial nursing assessment, however, is not reflective of my full history and physical exam that was personally taken and clarified. Consequentially, this preceding description of symptoms, which may include the patient's categorized chief complaint in the EMR, do not reflect my personal clinical impression, and the ultimate description of history of present illness and patient stated complaints should be deferred to this section of the note. Unless stated otherwise or congruent with this section of the note, additional signs, symptoms, or incongruence should be interpreted as inaccurate with my clinical impression. Related Data Previous Rx's Medication Instructions Recorded amoxicillin 875 mg-potassium 1 tab PO BID 10 days #20 tabs 02/25/24 clavulanate 125 mg tablet benzonatate 100 mg capsule 100 mg PO TID PRN cough #30 caps 02/25/24 ondansetron 4 mg disintegrating 4 mg PO Q8H PRN nausea and 02/25/24 tablet vomiting #20 tabs ondansetron 4 mg disintegrating 4 mg PO Q6H PRN nausea and 03/21/24 tablet vomiting 5 days #20 tabs promethazine 25 mg tablet 25 mg PO TID PRN nausea and 03/21/24 vomiting 5 days #20 tabs cefdinir 300 mg capsule 300 mg PO BID 14 days #28 caps 03/23/24 metoclopramide HCl 10 mg tablet 10 mg PO Q6H PRN nausea and 03/23/24 (Reglan) vomiting #20 tabs vits no.124-ferrous fum 1 tab PO DAILY #30 tabs 03/23/24 27 mg iron-folic acid 800 mcg tablet ( Vitamin) Allergies Allergy/AdvReac Type Severity Reaction Status Date / Time No Known Allergies Allergy Verified 02/25/24 14:51 [facility] Disclaimer: The information contained in this section may have been updated after the patient was seen, as this information can be updated by other users. Medical History Thyroiditis Hypokalemia Hyperthyroidism affecting Surgical History History of section Family History Other Asthma Cancer Diabetes Family history of diabetes mellitus type II Heart attack Hyperlipidemia Hypertension Social History Smoking Status: Current every day smoker tobacco type: cigarettes packs per day: 1 second hand exposure: Yes alcohol intake: never substance use type: former substance user and marijuana current occupational status: unemployed Travel in the last 8 weeks: None ROS Obtained: Yes All systems reviewed & no additional complaints except as documented Physical Exam General General appearance: alert and in no apparent distress Head Head exam: atraumatic and normocephalic Eye Eye exam: Present normal appearance, PERRL and EOMI ENT ENT exam: Present mucous membranes moist Neck Neck exam: Present normal inspection, full ROM and trachea midline Respiratory Respiratory exam: Absent respiratory distress, wheezes, stridor, accessory muscle use or prolonged expiratory phase Cardiovascular Cardiovascular exam: Present normal rhythm Abdominal Exam Abdominal exam: Present soft; Absent distention, tenderness, guarding, rebound or rigidity Extremities Exam Extremities exam: Absent edema Neurological Exam Neurological exam: Present alert, oriented X3, CN II-XII intact and normal gait; Absent motor sensory deficit Skin Skin exam: Present warm and dry; Absent diaphoresis or erythema Medical Decision Making Medical Records Medical records reviewed: Yes I reviewed the patient's medical records. Rigo Inquiry Pt receiving controlled substance: No Rigo was queried for this patient: No Vital Signs: 03/23/24 14:12 03/23/24 14:30 03/23/24 15:00 Temperature 98.2 F Temperature Source Oral Pulse Rate 71 68 Pulse Rate [Right Radial] 77 Respiratory Rate 18 Blood Pressure 115/72 112/66 Blood Pressure [Right Arm] 120/74 Blood Pressure Mean [Right Arm] 89 Blood Pressure Source [Right Arm] Automatic Cuff Blood Pressure Position [Right Arm] Supine 02 Sat by Pulse Oximetry 97 98 94 L Oxygen Delivery Method Room Air Room Air Room Air 03/23/24 15:30 Temperature Temperature Source Pulse Rate 73 Pulse Rate [Right Radial] Respiratory Rate Blood Pressure 124/87 Blood Pressure [Right Arm] Blood Pressure Mean [Right Arm] Blood Pressure Source [Right Arm] Blood Pressure Position [Right Arm] 02 Sat by Pulse Oximetry 94 L Oxygen Delivery Method Room Air Lab Data Lab Results 03/23/24 14:28: WBC 19.2 H D, RBC 4.89, Hgb 14.8, Hct 44.3, MCV 90.5, MCH 30.2, MCHC 33.4, RDW 14.6, Plt Count 376, MPV 7.8, Neut % (Auto) 89.5 H, Lymph % (Auto) 6.5 L, [place] % (Auto) 3.2, Eos % (Auto) 0.6, Baso % (Auto) 0.2, Neut # (Auto) 17.2 H, Lymph # (Auto) 1.3, [place] # (Auto) 0.6, Eos # (Auto) 0.1, Baso # (Auto) 0.0, Sodium 134 L, Potassium 2.8 L*, Chloride 99, Carbon Dioxide 26, Anion Gap 11.8, BUN 11 D, Creatinine 0.40 L, Estimated Creat Clear 137, Estimated GFR 187, Est GFR ( Amer) 227, Glucose 114 H, Lactate 1.4, Calcium 9.3, Total Bilirubin 0.7, AST 25, ALT 17 D, Alkaline Phosphatase 80, Total Protein 6.8, Albumin 3.9, Globulin 2.9, Albumin/Globulin Ratio 1.3, HCG, Quant [id number] H 03/23/24 15:28: Urine Color [place], Urine Appearance Sl cloudy, Urine pH 7.0, Ur Specific [place] 1.025, Urine Protein 2+, Urine Glucose (UA) Negative, Urine Ketones 2+, Urine Blood Negative, Urine Nitrate Positive, Urine Bilirubin 1+ A, Urine Urobilinogen 1.0, Ur Leukocyte Esterase Negative, Urine RBC None, Urine WBC Occasional, Ur Squamous Epith Cells 3-5, Urine Bacteria 2+ 03/23/24 15:31: VBG pH 7.46 H 03/23/24 14:28 03/23/24 14:28 Orders (Tests/Meds): ED MEDICATIONS Generic Name Dose Route Start Last Admin Trade Name Doris PRN Reason Stop Dose Admin Ceftriaxone Sodium 1 gm/ 50 mls @ 100 mls/hr 03/23/24 16:44 Sodium Chloride IV 03/23/24 17:13 ONCE ONE Discontinued Medications Generic Name Dose Route Start Last Admin Trade Name Doris PRN Reason Stop Dose Admin Lactated Ringer's 1,000 mls @ 999 mls/hr 03/23/24 15:10 03/23/24 15:31 Lactated Ringer's 1000 Ml Bag IV 03/23/24 16:10 999 mls/hr .Q1H1M ONE Administration Ondansetron HCl 4 mg 03/23/24 15:10 03/23/24 15:30 Ondansetron 4mg/2ml Vial IV 03/23/24 15:11 4 mg ONCE ONE Administration Potassium Chloride 60 meq 03/23/24 15:10 Potassium Chloride 20meq Tab PO 03/23/24 15:11 ONCE ONE Multivit/Folic Acid/Iron 1 each 03/23/24 16:45 Multivitamin W/Iron PO 03/23/24 16:46 ONCE ONE ORDERS Category Date Time Status Complete Blood Count Auto Diff Stat Lab 03/23/24 14:28 Results Comprehensive Metabolic Panel Stat Lab 03/23/24 14:28 Completed HCG,Quantitative Stat Lab 03/23/24 14:28 Completed Lactic Acid Stat Lab 03/23/24 14:28 Completed Urinalysis and Microscopic Stat Lab 03/23/24 15:28 Completed VBG PH Stat Lab 03/23/24 15:31 Completed Urine Culture Stat Micro 03/23/24 15:28 Received US OB transvaginal Stat Ultrasound 03/23/24 15:12 Completed Medical Decision Narrative: This is a 28-year-old female with history of 2 previous sections presenting with abdominal cramping, vomiting, diarrhea in the setting of being 14 weeks . Patient states has been throwing up having diarrhea for approximately 2 days. Has not been able to keep very much p.o. intake down. States that a week prior to this she had scant amount of dark red blood in her vomit and diarrhea, has not had any since. Abdominal cramping is diffuse, intermittently cramping intermittently stabbing, does not radiate, not associated with p.o. intake, no associated fevers. No abnormal vaginal discharge or bleeding. Patient's based off last menstrual period, has not had formal ultrasound at this point. History was obtained via conversation with patient and family. On arrival, patient hemodynamically stable, alert, oriented x4, appropriate, GCS 15, moving all extremities spontaneously, pupils equal and reactive to light. Full physical exam performed and significant for chronically ill-appearing female no acute distress. Her abdomen is soft, nontender, nondistended. No overlying skin changes. No flank tenderness. No palpable organomegaly. Pulses are equal and symmetric, patient not actively retching or in any acute distress. She does appear dehydrated with sunken eyes, but mucous membranes are moist. Differential includes gastritis, enteritis, hyperemesis gravidarum, acute viral syndrome, intrauterine , ectopic , ruptured cyst, appendicitis, cholecystitis, among others. Patient was given fluids, Zofran, p.o. potassium for symptomatic management and correction of underlying abnormalities. Workup independently interpreted and significant for leukocytosis with neutrophilic predominance, hypokalemia. Patient UA concerning for pyelonephritis. She was given 1 g ceftriaxone and vitamin given further conversation demonstrates patient not having any care. Independent interpretation of transvaginal ultrasound with viable IUP 14 weeks 1 day with no obvious concerns. See radiology read for full review of final results. I insisted on patient being admitted for management of hypokalemia, UTI, and dehydration, patient adamantly declining for multiple reasons, 1 being her need for nicotine. Nicotine patches were discussed, she adamantly did not declined. After thorough discussion of risks and benefits including patient's acknowledgment of all options, patient opting for outpatient management. Strict return precautions were given, strict follow-up instructions were also given. Patient and visitor both voiced understanding. I voiced to patient I would feel more comfortable if she would stay in the hospital for monitoring, Ieven discussed the case with SOFTWARE DEVELOPMENT COORDINATOR on-call who agreed, but patient adamantly denying admission. Because patient at baseline without signs or symptoms of clinical decompensation, deemed appropriate for discharge. Results were relayed to patient who voiced understanding and were agreeable to outpatient management and follow up. I discussed my clinical impression with patient and answered all questions. At this time, the evidence for any other entities in the differential is insufficient to warrant any further testing or ED observation. This was explained as well. Advisory was given that persistent or worsening symptoms require further evaluation. I confirmed the understanding of this discussion. Critical Care Critical Care Time Critical Care Time: No
[2024-03-23 15:55] LABS: Appearance,Urine SL CLOUDY (Clear); Blood, Urine Negative (Negative); Color,Urine ORANGE (Yellow); Glucose,Urine (UA) Negative (Negative); Ketones,Urine 2+ (Negative); Leukocyte Esterase,Urine Negative (Negative); Nitrate,Urine POSITIVE (Negative); Protein,Urine 2+ (Negative); Specific Gravity, Urine 1.025 (1.005-1.030)
[2024-03-23 16:01] LABS: Bilirubin,Urine 1+ (Negative)
--- NOTE | 2024-03-23 16:05 | PC.NURSE ---
dr rayo called to give ultrasound results. MD Damon asked that I take the results. per dr rayo: viable fetus, 14w 1d, limited anatomical scan appears normal.
[2024-03-23 16:17] LABS: Bacteria,Urine 2+ /lpf; WBC,Urine Occasional #/hpf (0-3)
[2024-03-23 16:23] LABS: HCG,Quantitative 66988 mIU/ml (0-5.42)
[2024-03-23 17:15] VITALS: BP 112/75; PULSE 80; RESP 15; TEMP 36.8; O2SAT 98
[2024-03-23] MEDS: POTASSIUM CHLORIDE 20MEQ TAB 60 MEQ PO (17:19)
[2024-03-23] MEDS: CEFTRIAXONE SODIUM 1 GM in 0.9 % SODIUM CHLORIDE 50 ML IV (17:22)
[2024-03-23 17:30] LABS: Lymphocytes % 8 % (10-50); Monocytes % 6 % (2-9); Neutrophils % 86 % (42-76); Platelet Estimate Normal; RBC Morphology Normal; Total Cells Counted 100
== END 2024-03-23 17:35 | disposition left against medical advice (07) ==
PROVIDERS: Emergency Medicine; Emergency Provider Emergency Medicine
DX: O23.02 Infections of kidney in pregnancy, second trimester (principal); D72.829 Elevated white blood cell count, unspecified; O26.892 Other specified pregnancy related conditions, second trimester; E87.6 Hypokalemia; R10.817 Generalized abdominal tenderness; E86.0 Dehydration; R11.2 Nausea with vomiting, unspecified; R19.7 Diarrhea, unspecified; O99.332 Smoking (tobacco) complicating pregnancy, second trimester; F17.210 Nicotine dependence, cigarettes, uncomplicated; Z3A.14 14 weeks gestation of pregnancy; E87.1 Hypo-osmolality and hyponatremia
CPT/HCPCS: 76817; 80053; 81001; 83605; 84702; 85007; 85025; 87086; 96361; 96365; 96375; 99285; J0696; J2405

== ENCOUNTER 2024-03-24 12:33 | Outpatient (CLI) | payer OTHER, SELFPAY | END 2024-03-24 23:59 | disposition home or self-care (01) | LOC: LAB.DROPOF 03-25 12:33 | PROVIDERS: PCP Nurse Practitioner Obstetrics & Gynecology; Visit Provider Nurse Practitioner Obstetrics & Gynecology | DX: Z3A.14 14 weeks gestation of pregnancy; O26.892 Other specified pregnancy related conditions, second trimester; B96.89 Other specified bacterial agents as the cause of diseases classified elsewhere | CPT/HCPCS: 87086 ==

== ENCOUNTER 2024-04-28 13:12 | Observation (INO) | payer OTHER, SELFPAY ==
[2024-04-28 13:19] VITALS: BMI 17.9
--- NOTE | 2024-04-28 13:26 | P.CONPHA_ITS ---
Pharmacy Intervention Comments: MEDICATION RECONCILIATION COMPLETED ON PATIENT USING EXTERNAL FILL HISTORY FROM PHARMACY AND LIST FROM [facility] OFFICE. -ARABELLA THORPED
--- NOTE | 2024-04-28 13:26 | HMH.PHAINT1 ---
Pharmacy Intervention Comments: MEDICATION RECONCILIATION COMPLETED ON PATIENT USING EXTERNAL FILL HISTORY FROM PHARMACY AND LIST FROM [facility] SOFTWARE DEVELOPER OFFICE. -ARABELLA THORPED
[2024-04-28 13:58] VITALS: BMI 17.9
[2024-04-28] MEDS: ONDANSETRON 4MG/2ML VIAL 4 MG IV ×2 (13:58→20:27)
[2024-04-28] MEDS: MVI, ADULT NO.1 WITH VIT K 10 ML, THIAMINE HCL 100 MG, MAGNESIUM SULFATE 2 GM in LACTAT... 125 ML IV (13:59)
[2024-04-28] MEDS: LACTATED RINGERS 1000ML 1,000 ML 999 ML IV (13:59)
[2024-04-28 14:16] LABS: Microscopic, Urine URINE MICROSCOPIC (MICROSCOPIC)
[2024-04-28 14:28] LABS: Basophils # 0.1 K/mm3 (0-0.2); Basophils % 0.2 % (0.1-2.0); Eosinophils # 0.2 K/mm3 (0.0-0.4); Eosinophils % 0.8 % (0.1-12.0); Hematocrit 44.2 % (37.0-47.0); Hemoglobin 14.6 g/dL (12.2-16.2); Lymphocytes # 1.1 K/mm3 (0.7-4.5); Lymphocytes % 5.1 % (10-50); Mean Corpuscular HGB Conc 33.1 g/dL (31.8-35.4); Mean Corpuscular Hemoglobin 30.1 pg (27.0-31.2); Mean Corpuscular Volume 91.1 fl (81-99); Mean Platelet Volume 8.4 fl (7.4-10.4); Monocytes # 0.2 K/mm3 (0.1-1.0); Monocytes % 0.7 % (1.7-9.3); Neutrophils # 20.3 K/mm3 (1.8-7.8); Neutrophils % 93.2 % (37.0-80.0); Platelet Count 398 K/mm3 (142-424); Red Blood Count 4.85 M/mm3 (4.20-5.40); Red Cell Distribution Width 14.7 % (11.5-17.5); White Blood Count 21.8 K/mm3 (4.8-10.8)
[2024-04-28 14:29] LABS: Appearance,Urine CLEAR (Clear); Blood, Urine Negative (Negative); Color,Urine YELLOW (Yellow); Glucose,Urine (UA) Negative (Negative); Ketones,Urine 3+ (Negative); Leukocyte Esterase,Urine Negative (Negative); Nitrate,Urine Negative (Negative); PH,Urine 6.5 (5.0-8.5); Protein,Urine 2+ (Negative); Specific Gravity, Urine >= 1.030 (1.005-1.030)
[2024-04-28 14:35] LABS: Alanine Aminotransferase 17 U/L (12-78); Albumin Level 4.2 g/dl (3.5-5.0); Albumin/Globulin Ratio 1.2 (1.1-1.8); Alkaline Phosphatase 90 U/L (38-126); Anion Gap 15.2 mEq/L (5-15); Aspartate Amino Transferase 23 U/L (14-36); Bilirubin,Total 0.6 mg/dl (0.2-1.3); Blood Urea Nitrogen 7 mg/dl (7-17); Calcium 9.4 mg/dl (8.4-10.2); Carbon Dioxide 24 mmol/L (22.0-30.0); Chloride 102 mmol/L (98-107); Creatinine Clearance Estimated 108 mL/min (50-200); Estimated Glomerular Filt Rate 145 ml/min (>60); GFR (African American) 175 ML/MIN (>60); Globulin 3.4 g/dL (1.3-3.2); Glucose 117 mg/dl (74-100); Potassium 3.2 mmoL/L (3.5-5.1); Sodium 138 mmol/L (136-145); Total Protein,Serum 7.6 g/dl (6.3-8.2)
[2024-04-28 14:39] LABS: Barbiturates Screen,Urine Negative ng/ml (<200)
[2024-04-28 14:39] LABS: MANUAL DIFFERENTIAL MANUAL DIFFERENTIAL (MANUAL DIFF)
[2024-04-28 14:40] LABS: Benzodiazepines Screen,Urine Negative ng/ml (<200)
[2024-04-28 14:41] LABS: Amphetamine/Metha Screen,Urine Negative ng/ml (<1000); Cannabinoid Screen,Urine Positive ng/ml (<50)
[2024-04-28 14:42] LABS: Cocaine Screen,Urine Negative ng/ml (<300); Methadone Screen,Urine Negative ng/ml (<300)
[2024-04-28 14:43] LABS: Bilirubin,Urine 1+ (Negative); Opiate Screen,Urine Negative ng/ml (<300)
[2024-04-28 14:44] LABS: Phencyclidine Screen,Urine Negative ng/ml (<25)
[2024-04-28 14:46] LABS: Mucus,Urine 1+ /lpf; WBC,Urine Occasional #/hpf (0-3)
[2024-04-28 15:11] LABS: Lymphocytes % 3 % (10-50); Monocytes % 1 % (2-9); Neutrophils % 96 % (42-76); Platelet Estimate Normal; RBC Morphology Normal; Total Cells Counted 100
--- NOTE | 2024-04-28 17:26 | EXP.HP ---
History of Present Illness *Admission Date: 04/28/24 *Reason for visit:: 19 weeks , hyperemesis, weight loss, *History of present illness: She is a 28-year-old 3 para 2 at 19 weeks gestational age. She has a history of hyperemesis gravidarum and has been admitted in previous pregnancies with hyperemesis. She was seen earlier in the and refused admission. She has recently been doing well but last night really started to have nausea vomiting and dehydration. She has been unable to keep anything down. As result of that she is admitted to labor and delivery for rehydration and control of her nausea vomiting. She is also quite weak and very lethargic. Her white count is elevated at 21.2. She is also mildly hypokalemic at 3.2. She also has a history of hypothyroidism but does not take any medication for this. We will repeat her labs and if necessary start a medication for her hypothyroidism. [facility] Disclaimer: The information contained in this section may have been updated after the patient was seen, as this information can be updated by other users. Medical History Thyroiditis Hypokalemia Hyperthyroidism affecting Surgical History History of section Family History Diabetes Hyperlipidemia Heart attack Family history of diabetes mellitus type II Cancer Hypertension Asthma Social History Smoking Status: Current every day smoker tobacco type: cigarettes packs per day: 1 second hand exposure: Yes alcohol intake: never substance use type: former substance user and marijuana current occupational status: unemployed Travel in the last 8 weeks: None Review of Systems Review of Systems Review of systems:: pertinent systems reviewed and negative unless documented below Meds Home Medications and Allergies Home Medications Medication Instructions Recorded Confirmed Type aspirin 81 mg chewable tablet 81 mg PO DAILY #30 tabs 03/30/24 04/28/24 Rx vit no.95-ferrous 1 tab PO DAILY 03/30/24 04/28/24 History fumarate 28 mg-folic acid 800 mcg tablet () terconazole 0.8 % vaginal cream 1 appful vaginal HS 7 days #20 03/30/24 04/28/24 Rx grams ondansetron 4 mg disintegrating 4 mg PO Q6HP PRN nausea and 04/28/24 04/28/24 History tablet vomiting promethazine 25 mg tablet 25 mg PO TIDP PRN nausea and 04/28/24 04/28/24 History vomiting New Prescriptions to Start Prescriptions: Allergies Allergy/AdvReac Type Severity Reaction Status Date / Time No Known Allergies Allergy Verified 04/28/24 11:04 Exam Data for Last 24 hours Vital signs and Labs for Last 24 Hours: Laboratory Results - last 24 hr 04/28/24 13:40: Urine Color Yellow, Urine Appearance Clear, Urine pH 6.5, Ur Specific [place] >= 1.030, Urine Protein 2+, Urine Glucose (UA) Negative, Urine Ketones 3+, Urine Blood Negative, Urine Nitrate Negative, Urine Bilirubin 1+ A, Urine Urobilinogen 1.0, Ur Leukocyte Esterase Negative, Urine RBC None, Urine WBC Occasional, Ur Squamous Epith Cells 3-5, Urine Bacteria None, Urine Mucus 1+, Urine Opiates Screen Negative, Urine Methadone Screen Negative, Ur Barbituates Screen Negative, Ur Phencyclidine Scrn Negative, Ur Amphetamines Screen Negative, U Benzodiazepines Scrn Negative, Urine Cocaine Screen Negative, U Marijuana (THC) Screen Positive H 04/28/24 14:00: WBC 21.8 H*, RBC 4.85, Hgb 14.6, Hct 44.2, MCV 91.1, MCH 30.1, MCHC 33.1, RDW 14.7, Plt Count 398, MPV 8.4, Neut % (Auto) 93.2 H, Lymph % (Auto) 5.1 L, [place] % (Auto) 0.7 L, Eos % (Auto) 0.8, Baso % (Auto) 0.2, Neut # (Auto) 20.3 H, Lymph # (Auto) 1.1, [place] # (Auto) 0.2, Eos # (Auto) 0.2, Baso # (Auto) 0.1, Total Counted 100, Neutrophils % (Manual) 96 H, Lymphocytes % (Manual) 3 L, Monocytes % (Manual) 1 L, Platelet Estimate Normal, RBC Morphology Normal, Sodium 138, Potassium 3.2 L, Chloride 102, Carbon Dioxide 24, Anion Gap 15.2 H, BUN 7, Creatinine 0.50 L, Estimated Creat Clear 108, Estimated GFR 145, Est GFR ( Amer) 175, Glucose 117 H, Calcium 9.4, Total Bilirubin 0.6, AST 23, ALT 17, Alkaline Phosphatase 90, Total Protein 7.6, Albumin 4.2, Globulin 3.4 H, Albumin/Globulin Ratio 1.2 I & O for Last 24 hours: Intake & Output 04/26/24 04/27/24 04/28/24 04/29/24 11:59 11:59 11:59 11:59 Weight 92 lb Constitutional Constitutional: no acute distress *Routine HEENT Exam Head: Present normocephalic Eye: Present EOMI and PERRL ENT: Present mucous membranes moist *Routine Neck Exam Neck: Present supple; Absent lymphadenopathy *Routine Respiratory Exam Respiratory: Present CTA bilaterally *Routine Cardiovascular Exam Cardiovascular: Present RRR *Routine Abdominal Exam Abdominal: Present soft and normoactive bowel sounds; Absent tenderness *Routine Rectal Exam Rectal:: deferred *Routine Genitalia Exam Genitalia:: deferred *Routine Extremities Exam Extremities: Absent cyanosis, clubbing or edema *Routine Skin Exam Skin: Present warm; Absent rash *Routine Neurological Exam Neurological: Present alert and oriented X3 Assessment and Plan *Assessment and plan (1) Hyperemesis affecting , antepartum: Status: Acute Category: Medical Code(s): O21.0 - Mild hyperemesis gravidarum (2) Vomiting: Status: Acute Qualifiers: Nausea presence: with nausea Vomiting type: unspecified Qualified Code(s): R11.2 - Nausea with vomiting, unspecified Category: Medical Code(s): R11.10 - Vomiting, unspecified (3) Acute hypokalemia: Status: Acute Category: Medical Code(s): E87.6 - Hypokalemia (4) Incidental intrauterine : Status: Acute Category: Medical Code(s): Z33.1 - state, incidental (5) Tobacco abuse: Status: Acute Category: Medical Code(s): Z72.0 - Tobacco use (6) Marijuana use during : Status: Acute Category: Medical Code(s): O99.320 - Drug use complicating , unspecified trimester; F12.90 - Cannabis use, unspecified, uncomplicated (7) hypertension: Status: Acute Category: Medical Code(s): O16.5 - Unspecified maternal hypertension, complicating the puerperium (8) History of hyperthyroidism: Status: Acute Category: Medical Code(s): Z86.39 - Personal history of other endocrine, nutritional and metabolic disease Plan She is admitted for rehydration for her nausea and vomiting. Her urine specific gravity is elevated and she has 3+ ketones. We will get a thyroid panel to see if she indeed is hypothyroid. If that is the case we will start her on methimazole and consult our hospitalist. We will add potassium for her hypokalemia. We will treat her with antiemetics.
[2024-04-28] MEDS: PROMETHAZINE HCL 25MG/ML 1ML VIAL 12.5 MG IV ×2 (17:31→23:21)
[2024-04-28 19:46] VITALS: BP 108/60; PULSE 62; RESP 17; TEMP 36.8; O2SAT 98
[2024-04-28 20:57] LABS: Free Thyroxine Index 4.2 ug/dL (5.93-13.13); Triiodothryronine (T3) Uptake 26 % (23.5-40.5)
[2024-04-28 21:11] LABS: Thyroid Stimulating Hormone 0.15 uIU/mL (0.465-4.68)
[2024-04-28] MEDS: DEXTROSE 5%-LACTATED RINGERS 1,000 ML 125 ML IV (23:00)
[2024-04-28] MEDS: SODIUM CHLORIDE 0.9% 25ML BAG 25 ML IV (23:22)
[2024-04-29] MEDS: ONDANSETRON 4MG/2ML VIAL 4 MG IV (04:46)
[2024-04-29] MEDS: SODIUM CHLORIDE 0.9% 25ML BAG 25 ML IV (06:02)
[2024-04-29] MEDS: PROMETHAZINE HCL 25MG/ML 1ML VIAL 12.5 MG IV (06:02)
[2024-04-29 07:04] LABS: Chloride 104 mmol/L (98-107); Sodium 134 mmol/L (136-145)
[2024-04-29 07:06] LABS: Blood Urea Nitrogen 4 mg/dl (7-17); Creatinine Clearance Estimated 181 mL/min (50-200); Estimated Glomerular Filt Rate 261 ml/min (>60); GFR (African American) 316 ML/MIN (>60)
[2024-04-29 07:07] LABS: Alanine Aminotransferase 11 U/L (12-78); Albumin Level 3.2 g/dl (3.5-5.0); Albumin/Globulin Ratio 1.2 (1.1-1.8); Alkaline Phosphatase 70 U/L (38-126); Aspartate Amino Transferase 25 U/L (14-36); Bilirubin,Total 0.4 mg/dl (0.2-1.3); Carbon Dioxide 25 mmol/L (22.0-30.0); Globulin 2.7 g/dL (1.3-3.2); Total Protein,Serum 5.9 g/dl (6.3-8.2)
[2024-04-29 07:08] LABS: Calcium 8.5 mg/dl (8.4-10.2); Glucose 113 mg/dl (74-100)
[2024-04-29 07:39] LABS: Eosinophils # 0.1 K/mm3 (0.0-0.4); Hematocrit 37.5 % (37.0-47.0); Mean Platelet Volume 8.9 fl (7.4-10.4); Monocytes # 0.6 K/mm3 (0.1-1.0); Monocytes % 4.2 % (1.7-9.3)
[2024-04-29 07:52] LABS: Basophils % 0.2 % (0.1-2.0); Eosinophils % 0.4 % (0.1-12.0); Lymphocytes # 1.7 K/mm3 (0.7-4.5); Lymphocytes % 12.2 % (10-50); Mean Corpuscular HGB Conc 33.4 g/dL (31.8-35.4); Mean Corpuscular Hemoglobin 30.9 pg (27.0-31.2); Mean Corpuscular Volume 92.4 fl (81-99); Neutrophils # 11.7 K/mm3 (1.8-7.8); Neutrophils % 82.9 % (37.0-80.0); Platelet Count 326 K/mm3 (142-424); Red Blood Count 4.06 M/mm3 (4.20-5.40); Red Cell Distribution Width 14.5 % (11.5-17.5); White Blood Count 14.2 K/mm3 (4.8-10.8)
[2024-04-29 08:00] LABS: Hemoglobin 12.5 g/dL (12.2-16.2)
[2024-04-29] MEDS: MVI, ADULT NO.1 WITH VIT K 10 ML, THIAMINE HCL 100 MG, MAGNESIUM SULFATE 2 GM in LACTAT... 125 ML IV (08:16)
[2024-04-29] MEDS: POTASSIUM CHLORIDE 20MEQ/15ML UDC 40 MEQ PO (08:16)
[2024-04-29 08:20] VITALS: BP 124/68; PULSE 74; RESP 18; TEMP 36.8; O2SAT 97
[2024-04-29] MEDS: SCOPOLAMINE 1.5MG/72HRS PATCH 1 EACH TD (08:55)
[2024-04-29] MEDS: KCl 20mEq/100ml 100 ML 50 MEQ IV ×2 (10:18→20:50)
[2024-04-29] MEDS: DEXTROSE 5%-LACTATED RINGERS 1,000 ML 125 ML IV ×2 (10:20→22:43)
[2024-04-29 12:00] VITALS: PULSE 80
[2024-04-29] MEDS: SODIUM CHLORIDE 0.9% 10ML FLUSH SYRINGE 10 ML IV ×2 (12:13→18:03)
[2024-04-29] MEDS: METOCLOPRAMIDE HCL 10MG/2ML VIAL 10 MG IVP ×2 (12:13→18:03)
[2024-04-29] MEDS: ONDANSETRON 4MG/2ML VIAL 8 MG IV (15:43)
[2024-04-29 15:52] VITALS: BP 121/71; PULSE 76; RESP 18; TEMP 37.3; O2SAT 95
[2024-04-29 16:16] VITALS: BMI 18.5
--- NOTE | 2024-04-29 16:16 | P.PN_ITS ---
Subjective *Date: 04/29/24 *Time: 16:16 Interval history: Lary reports she is still not feeling well. She states every time she take a sip she vomits. She can't keep anything down. Every time she rolls over in bed, she vomits. Denies vaginal bleeding and abdominal pain. She is feeling baby move. Medical Exam Vital signs and Labs for Last 24 Hours: Vital Signs Temp Pulse Pulse Resp BP Pulse Ox O2 Del Method 04/29/24 15:52 99.2 F 76 18 121/71 95 Room Air 04/29/24 12:00 80 04/29/24 08:20 98.3 F 74 18 124/68 97 Room Air 04/28/24 19:46 98.2 F 62 17 108/60 L 98 Room Air Laboratory Results - last 24 hr 04/28/24 19:18: TSH 0.15 L, Free T4 Index 4.2 L, Thyroxine (T4) 16.0 H, T3 Uptake 26 04/29/24 06:30: WBC 14.2 H D, RBC 4.06 L, Hgb 12.5 D, Hct 37.5, MCV 92.4, MCH 30.9, MCHC 33.4, RDW 14.5, Plt Count 326, MPV 8.9, Neut % (Auto) 82.9 H, Lymph % (Auto) 12.2, [place] % (Auto) 4.2, Eos % (Auto) 0.4, Baso % (Auto) 0.2, Neut # (Auto) 11.7 H, Lymph # (Auto) 1.7, [place] # (Auto) 0.6, Eos # (Auto) 0.1, Baso # (Auto) 0.0, Sodium 134 L, Potassium 3.0 L, Chloride 104, Carbon Dioxide 25, Anion Gap 8.0, BUN 4 L D, Creatinine 0.30 L D, Estimated Creat Clear 181, Estimated GFR 261, Est GFR ( Amer) 316 D, Glucose 113 H, Calcium 8.5, Total Bilirubin 0.4, AST 25, ALT 11 L D, Alkaline Phosphatase 70, Total Protein 5.9 L, Albumin 3.2 L D, Globulin 2.7, Albumin/Globulin Ratio 1.2 I & O for Labs for Last 24 Hours: Intake & Output 04/26/24 04/27/24 04/28/2424 23:59 23:59 23:59 23:59 Intake Total 420 / 420 Output Total 550 / 550 Balance -130 / -130 Weight 92 lb Head: Present atraumatic and normocephalic ENT: Present mucous membranes moist Neck: Present full ROM Respiratory: Present CTA bilaterally and normal respiratory effort Cardiac: Present Reg Rate and Rhythm GI: Present soft (Gravid); Absent tenderness Rectal (female): Present deferred (female): Present deferred Extremities: Present normal inspection Neuro: Present alert, awake and moves all extremities Assessment and Plan *Assessment and plan (1) Hyperemesis affecting , antepartum: Status: Acute Category: Medical Code(s): O21.0 - Mild hyperemesis gravidarum (2) Acute hypokalemia: Status: Acute Category: Medical Code(s): E87.6 - Hypokalemia (3) Marijuana use during : Status: Acute Category: Medical Code(s): O99.320 - Drug use complicating , unspecified trimester; F12.90 - Cannabis use, unspecified, uncomplicated (4) History of hyperthyroidism: Status: Acute Category: Medical Code(s): Z86.39 - Personal history of other endocrine, nutritional and metabolic disease (5) Tobacco abuse: Status: Acute Category: Medical Code(s): Z72.0 - Tobacco use Plan Continue rally pack every day Discussed small sips and bites of saltine cracker every 15-20 minutes while awake. Discussed the longer she goes with her stomach empty the worse she will feel Stopped promethazine and scheduled zofran and Reglan. Scopolamine patch ordered Thyroid labs are low - Consult hospitalist heart tones q shift Potassium IV since she is not tolerating PO
--- NOTE | 2024-04-29 16:46 | P.CONS_ITS ---
History of Present Illness *Admission Date: 04/28/24 *Reason for visit:: vomiting *History of present illness: 26-year-old female currently 19 weeks who presented to hospital due to excessive vomiting, according to the patient she has not been able to hold down food and has been persistently vomiting, she feels weak. Internal medicine has been consulted for assistance with medical management. Patient denies fevers chills diarrhea constipation dysuria. [facility] Disclaimer: The information contained in this section may have been updated after the patient was seen, as this information can be updated by other users. Medical History Thyroiditis Hypokalemia Hyperthyroidism affecting Surgical History (Reviewed 04/28/24 @ 17: by Manolo Jaime MD) History of section Family History Diabetes Hyperlipidemia Heart attack Family history of diabetes mellitus type II Cancer Hypertension Asthma Social History Smoking Status: Current every day smoker tobacco type: cigarettes packs per day: 1 second hand exposure: Yes alcohol intake: never substance use type: former substance user and marijuana current occupational status: unemployed Travel in the last 8 weeks: None Review of Systems Review of Systems Review of systems:: pertinent systems reviewed and negative unless documented below Exam Data for Last 24 hours Vital signs and Labs for Last 24 Hours: Temp Pulse Resp BP Pulse Ox O2 Del Method 99.2 F 76 18 121/71 95 Room Air 04/29/24 15:52 04/29/24 15:52 04/29/24 15:52 04/29/24 15:52 04/29/24 15:52 04/29/24 15:52 Laboratory Results - last 24 hr 04/28/24 19:18: TSH 0.15 L, Free T4 Index 4.2 L, Thyroxine (T4) 16.0 H, T3 Uptake 26 04/29/24 06:30: WBC 14.2 H D, RBC 4.06 L, Hgb 12.5 D, Hct 37.5, MCV 92.4, MCH 30.9, MCHC 33.4, RDW 14.5, Plt Count 326, MPV 8.9, Neut % (Auto) 82.9 H, Lymph % (Auto) 12.2, [place] % (Auto) 4.2, Eos % (Auto) 0.4, Baso % (Auto) 0.2, Neut # (Auto) 11.7 H, Lymph # (Auto) 1.7, [place] # (Auto) 0.6, Eos # (Auto) 0.1, Baso # (Auto) 0.0, Sodium 134 L, Potassium 3.0 L, Chloride 104, Carbon Dioxide 25, Anion Gap 8.0, BUN 4 L D, Creatinine 0.30 L D, Estimated Creat Clear 181, Estimated GFR 261, Est GFR ( Amer) 316 D, Glucose 113 H, Calcium 8.5, Total Bilirubin 0.4, AST 25, ALT 11 L D, Alkaline Phosphatase 70, Total Protein 5.9 L, Albumin 3.2 L D, Globulin 2.7, Albumin/Globulin Ratio 1.2 I & O for Last 24 hours: Intake & Output 04/26/24 04/27/24 04/28/24 04/29/24 23:59 23:59 23:59 23:59 Intake Total 420 / 420 Output Total 550 / 550 Balance -130 / -130 Weight 41.73 kg 42.819 kg Constitutional Constitutional: no acute distress *Routine HEENT Exam Head: Present normocephalic Eye: Present EOMI and PERRL ENT: Present mucous membranes moist *Routine Neck Exam Neck: Present supple; Absent lymphadenopathy *Routine Respiratory Exam Respiratory: Present CTA bilaterally *Routine Cardiovascular Exam Cardiovascular: Present RRR *Routine Abdominal Exam Abdominal: Present soft and normoactive bowel sounds; Absent tenderness *Routine Extremities Exam Extremities: Absent cyanosis, clubbing or edema *Routine Skin Exam Skin: Present warm; Absent rash *Routine Neurological Exam Neurological: Present alert and oriented X3 Meds Home Medications and Allergies Home Medications Medication Instructions Recorded Confirmed Type aspirin 81 mg chewable tablet 81 mg PO DAILY #30 tabs 03/30/24 04/28/24 Rx vit no.95-ferrous 1 tab PO DAILY 03/30/24 04/28/24 History fumarate 28 mg-folic acid 800 mcg tablet () terconazole 0.8 % vaginal cream 1 appful vaginal HS 7 days #20 03/30/24 04/28/24 Rx grams ondansetron 4 mg disintegrating 4 mg PO Q6HP PRN nausea and 04/28/24 04/28/24 History tablet vomiting promethazine 25 mg tablet 25 mg PO TIDP PRN nausea and 04/28/24 04/28/24 History vomiting New Prescriptions to Start Prescriptions: Allergies Allergy/AdvReac Type Severity Reaction Status Date / Time No Known Allergies Allergy Verified 04/28/24 11:04 Results Labs 04/29/24 06:30 04/29/24 06:30 Labs: Abnormal lab results 04/28/24 04/29/24 Range/Units 19:18 06:30 WBC 14.2 H D (4.8-10.8) K/mm3 RBC 4.06 L (4.20-5.40) M/mm3 Neut % (Auto) 82.9 H (37.0-80.0) % Neut # (Auto) 11.7 H (1.8-7.8) K/mm3 Sodium 134 L (136-145) mmol/L Potassium 3.0 L (3.5-5.1) mmoL/L BUN 4 L D (7-17) mg/dl Creatinine 0.30 L D (0.52-1.04) mg/dl Glucose 113 H (74-100) mg/dl ALT 11 L D (12-78) U/L Total Protein 5.9 L (6.3-8.2) g/dl Albumin 3.2 L D (3.5-5.0) g/dl TSH 0.15 L (0.465-4.68) uIU/mL Free T4 Index 4.2 L (5.93-13.13) ug/dL Thyroxine (T4) 16.0 H (5.53-11.0) ug/dl H & H 04/28/24 04/29/24 Range/Units 14:00 06:30 Hgb 14.6 12.5 D (12.2-16.2) g/dL Hct 44.2 37.5 (37.0-47.0) % All other labs normal. Assessment and Plan *Assessment and plan (1) History of hyperthyroidism: Status: Acute Category: Medical Code(s): Z86.39 - Personal history of other endocrine, nutritional and metabolic disease (2) Hyperemesis affecting , antepartum: Status: Acute Category: Medical Code(s): O21.0 - Mild hyperemesis gravidarum (3) Hyperlipidemia: Status: Acute Category: Medical Code(s): E78.5 - Hyperlipidemia, unspecified Plan 26-year-old female currently 19 weeks who presented to hospital due to excessive vomiting, according to the patient she has not been able to hold down food and has been persistently vomiting, she feels weak. Internal medicine has been consulted for assistance with medical management. Patient denies fevers chills diarrhea constipation dysuria. Assessment and plan Intractable nausea vomiting likely due to hyperemesis gravidarum Patient has been started on IV fluids with D5 lactated Ringer's-continue Monitor and replace electrolytes Currently 19 weeks Primary team INSTRUCTIONAL SUPERVISOR following Hypokalemia Monitor and replace potassium Leukocytosis likely related to , reactive UA checked-not suggestive of UTI, negative for bacteria Continue to monitor off antibiotics Mild hyponatremia Monitor and replace electrolytes Continue IV fluids Thyroid dysfunction TSH is low, thyroxine is high, suggestive of hyperthryoid function, changes may be related to the , Await INSTRUCTIONAL SUPERVISOR input DVT prophylaxis-Per primary team
[2024-04-29 20:50] VITALS: BP 128/78; PULSE 68; RESP 17; TEMP 36.8; O2SAT 97
[2024-04-30] MEDS: METOCLOPRAMIDE HCL 10MG/2ML VIAL 10 MG IVP (04:32)
[2024-04-30 04:35] VITALS: BP 138/82; PULSE 76; RESP 17; TEMP 36.6; O2SAT 98
[2024-04-30 04:48] VITALS: BMI 18.5
[2024-04-30 07:40] LABS: Basophils % 0.2 % (0.1-2.0); Eosinophils % 0.2 % (0.1-12.0); Hematocrit 36.2 % (37.0-47.0); Hemoglobin 11.9 g/dL (12.2-16.2); Lymphocytes # 1.8 K/mm3 (0.7-4.5); Mean Corpuscular HGB Conc 32.8 g/dL (31.8-35.4); Mean Corpuscular Hemoglobin 30.3 pg (27.0-31.2); Mean Corpuscular Volume 92.3 fl (81-99); Mean Platelet Volume 8.8 fl (7.4-10.4); Monocytes # 0.5 K/mm3 (0.1-1.0); Neutrophils # 8.9 K/mm3 (1.8-7.8); Neutrophils % 79.6 % (37.0-80.0); Platelet Count 350 K/mm3 (142-424); Red Blood Count 3.92 M/mm3 (4.20-5.40); Red Cell Distribution Width 14.9 % (11.5-17.5); White Blood Count 11.2 K/mm3 (4.8-10.8)
[2024-04-30 08:05] LABS: Chloride 104 mmol/L (98-107); Sodium 133 mmol/L (136-145)
[2024-04-30 08:08] LABS: Alanine Aminotransferase 19 U/L (12-78); Albumin Level 2.9 g/dl (3.5-5.0); Albumin/Globulin Ratio 1.1 (1.1-1.8); Alkaline Phosphatase 68 U/L (38-126); Aspartate Amino Transferase 35 U/L (14-36); Bilirubin,Total 0.4 mg/dl (0.2-1.3); Carbon Dioxide 25 mmol/L (22.0-30.0); Creatinine Clearance Estimated 185 mL/min (50-200); Estimated Glomerular Filt Rate 261 ml/min (>60); GFR (African American) 316 ML/MIN (>60); Globulin 2.6 g/dL (1.3-3.2); Total Protein,Serum 5.5 g/dl (6.3-8.2)
[2024-04-30 08:09] LABS: Calcium 8.2 mg/dl (8.4-10.2); Glucose 109 mg/dl (74-100)
[2024-04-30 08:49] LABS: Blood Urea Nitrogen < 2 mg/dl (7-17)
--- NOTE | 2024-04-30 08:56 | PC.NURSE ---
Notified by Johnna Leiva (Lab) of critical K+ result (3.0). checkout supervisor ([place]) also present when result called. Pt had already signed out AMA prior to this shift. Will notify MD of results.
--- NOTE | 2024-04-30 09:24 | PC.NURSE ---
notified in person of critical K+ results. Verbalized understanding. States to call pt at home and let her know about results and risks of low K+ over time.
--- NOTE | 2024-04-30 10:03 | PC.NURSE ---
Attempted to call and notify pt of critically low K+ results. Phone rang numerous times. No answer.
--- NOTE | 2024-05-02 12:34 | EXP.DC.SUM ---
General Admission date:: 04/28/24 Discharge date: 04/30/24 HPI HPI HPI: Patient left AMA the morning of 05/02/24 before provider rounded. Hospital Course Hospital Course Hospital Course: She is a 28-year-old 3 para 2 at 19 weeks gestational age. She has a history of hyperemesis gravidarum and has been admitted in previous pregnancies with hyperemesis. She was seen earlier in the and refused admission. She has recently been doing well but last night really started to have nausea vomiting and dehydration. She has been unable to keep anything down. As result of that she is admitted to labor and delivery for rehydration and control of her nausea vomiting. She is also quite weak and very lethargic. Her white count is elevated at 21.2. She is also mildly hypokalemic at 3.2. She also has a history of hypothyroidism but does not take any medication for this. We will repeat her labs and if necessary start a medication for her hypothyroidism. She received rally pack which was ordered daily, plus IV fluids. She was instructed on small sips and bites of saltine cracker every 15-20 minutes while awake. Discussed the longer she goes with her stomach empty the worse she will feel. Stopped promethazine and scheduled zofran and Reglan. Scopolamine patch ordered. Thyroid labs are low - hospitalist was consulted. heart tones were obtained every shift and she was started on Potassium IV since she was not tolerating PO. On the morning of 04/30/24 the night nurse reported Lary was doing a little better overnight with medication changes. However, she was very angry and irritated that lab came around to draw her blood in the morning and she left AMA before physician rounded. Nurse attempted to call patient to notify her for critically low potassium, 3.0, but phone rang multiple times without answer. Exam Data for Last 24 hours Vital signs and Labs for Last 24 Hours: Temp Pulse Resp BP Pulse Ox O2 Del Method 98 F 76 17 138/82 98 Room Air 04/30/24 04:35 04/30/24 04:35 04/30/24 04:35 04/30/24 04:35 04/30/24 04:35 04/30/24 04:35 I & O for Last 24 hours: Intake & Output 04/29/24 04/30/24 05/01/24 05/02/24 23:59 23:59 23:59 23:59 Intake Total 1999 60 / 60 Output Total 1200 / 1200 1400 / 1400 Balance 800 / 800 -1340 / -1340 Weight 94 lb 6.4 oz 94 lb 6 oz Constitutional Comments: Patient left AMA before provider rounded on the morning of 04/30/24 DS: Diagnosis Discharge Diagnosis (1) Hyperemesis affecting , antepartum: Status: Acute Code(s): O21.0 - Mild hyperemesis gravidarum (2) History of hyperthyroidism: Status: Acute Code(s): Z86.39 - Personal history of other endocrine, nutritional and metabolic disease (3) Marijuana use during : Status: Acute Code(s): O99.320 - Drug use complicating , unspecified trimester; F12.90 - Cannabis use, unspecified, uncomplicated (4) Acute hypokalemia: Status: Acute Code(s): E87.6 - Hypokalemia Meds Home Medications and Allergies Home Medications Medication Instructions Recorded Confirmed Type aspirin 81 mg chewable tablet 81 mg PO DAILY #30 tabs 03/30/24 04/28/24 Rx vit no.95-ferrous 1 tab PO DAILY 03/30/24 04/28/24 History fumarate 28 mg-folic acid 800 mcg tablet () terconazole 0.8 % vaginal cream 1 appful vaginal HS 7 days #20 03/30/24 04/28/24 Rx grams ondansetron 4 mg disintegrating 4 mg PO Q6HP PRN nausea and 04/28/24 04/28/24 History tablet vomiting promethazine 25 mg tablet 25 mg PO TIDP PRN nausea and 04/28/24 04/28/24 History vomiting New Prescriptions to Start Prescriptions: Allergies Allergy/AdvReac Type Severity Reaction Status Date / Time No Known Allergies Allergy Verified 04/28/24 11:04 Discharge Plan Disposition Patient Disposition: Left Against Medical Advice Providers Admit Provider: Manolo Jaime Attending Provider: Manolo Jaime
== END 2024-04-30 06:34 | disposition left against medical advice (07) ==
PROVIDERS: Obstetrics & Gynecology; Admitting Provider Nurse Practitioner Obstetrics & Gynecology; PCP Nurse Practitioner Obstetrics & Gynecology; Visit Provider Nurse Practitioner Obstetrics & Gynecology
DX: O21.0 Mild hyperemesis gravidarum (principal); O99.332 Smoking (tobacco) complicating pregnancy, second trimester; O99.282 Endocrine, nutritional and metabolic diseases complicating pregnancy, second trimester; E87.6 Hypokalemia; O99.322 Drug use complicating pregnancy, second trimester; E87.1 Hypo-osmolality and hyponatremia; E86.0 Dehydration
CPT/HCPCS: 36415; 80053; 80307; 81001; 84436; 84443; 84479; 85007; 85025; G0378; J2405; J2550; J2765; J3411; J7120

== ENCOUNTER 2024-05-05 13:27 | Outpatient (CLI) | payer OTHER, SELFPAY ==
--- NOTE | 2024-05-05 13:28 | US_ITS ---
PROCEDURE: US OB /MATERNAL DETAIL CLINICAL INDICATION: 20 week anatomy scan COMPARISON: US US OB TRANSVAGINAL from 03/23/2024 FINDINGS: Transabdominal sonographic images of the pelvis were obtained. From her established due date she is 20 weeks 2 days. Single viable intrauterine gestation. Cephalic position. Placenta: Anteriorplacenta grade 1. There is an average amount of fluid. The cervix appears satisfactory. Closed and measuring 3.1 cm in length. Complete survey performed and was unremarkable on the submitted images as in PACS. No discrete anomalies identified on survey imaging by technologist. Active fetus. Three-vessel cord with satisfactory umbilical cord insertion. 4- chamber heart noted. [place], aortic arch, LVOT, RVOT, three-vessel view appear normal. Survey of brain & ventricles Unremarkable. Cerebellum, thalamus, choroid plexus, cisterna magna appear normal. Face and neck survey unremarkable. Profile, nasion, lips and nose appeared normal. Diaphragm and chest views unremarkable. Abdomen: Both kidneys noted and unremarkable. Stomach and bladder noted and satisfactory. Spine: Survey of the spine satisfactory with no anomalies identified nor imaged. Cervical, thoracic, lower spine appear normal. Both arms and legs noted. Amniotic Fluid: Adequate. Measurements: Average ultrasound age 19weeks 3days. Estimated due date by ultrasound age 1109/26/2024. Estimated weight 290g BPD = 19weeks 2days, 11 percentile HC = 19weeks 1day, 4 percentile AC = 19weeks 4days, 20 percentile FL = 19weeks 3days, 14 percentile Growth Percentile= 9 Heart Rate = 130bpm Cerebellum = 20weeks 0 days Humerus = 19weeks 4days HC/AC is 1.15 FL/BPD is 0.69 FL/AC is 0.21 IMPRESSION: 1. Viable fetus in the cephalic presentation with an anterior placenta grade 1. 2. The fluid is within normal limits. 3. Anatomical scan appears normal. 4. biometry is consistent with the dates. Dictated by: Manolo Jaime MD 05/06/2024 10:44 Manolo Jaime MD in OV 05/06/2024 10:44
== END 2024-05-05 23:59 | disposition home or self-care (01) ==
LOC: RAD 13:28
PROVIDERS: PCP Nurse Practitioner Obstetrics & Gynecology; Visit Provider Nurse Practitioner Obstetrics & Gynecology
DX: Z36.89 Encounter for other specified antenatal screening (principal); Z3A.20 20 weeks gestation of pregnancy
CPT/HCPCS: 76811

== ENCOUNTER 2024-06-16 18:28 | Emergency (ER) | payer OTHER, SELFPAY ==
[2024-06-16] VITALS (10 sets, daily range): BP systolic 100–124; BP diastolic 51–75; PULSE 60–65; RESP 14–23; TEMP 36.7; O2SAT 96–100; BMI 19.5
--- NOTE | 2024-06-16 18:34 | PC.NURSE ---
FS 109
[2024-06-16] MEDS: LACTATED RINGERS 1000ML 1,000 ML 999 ML IV ×2 (18:37→20:08)
[2024-06-16] MEDS: ONDANSETRON 4MG/2ML VIAL 4 MG IV ×2 (18:37→20:42)
[2024-06-16 18:42] LABS: Basophils # 0.1 K/mm3 (0-0.2); Basophils % 0.3 % (0.1-2.0); Eosinophils # 0.1 K/mm3 (0.0-0.4); Eosinophils % 0.7 % (0.1-12.0); Hematocrit 42.3 % (37.0-47.0); Hemoglobin 14.2 g/dL (12.2-16.2); Lymphocytes # 1.5 K/mm3 (0.7-4.5); Lymphocytes % 7.7 % (10-50); Mean Corpuscular HGB Conc 33.6 g/dL (31.8-35.4); Mean Corpuscular Hemoglobin 31.3 pg (27.0-31.2); Mean Corpuscular Volume 93.4 fl (81-99); Mean Platelet Volume 7.9 fl (7.4-10.4); Monocytes # 0.3 K/mm3 (0.1-1.0); Monocytes % 1.6 % (1.7-9.3); Neutrophils # 16.9 K/mm3 (1.8-7.8); Neutrophils % 89.8 % (37.0-80.0); Platelet Count 407 K/mm3 (142-424); Red Blood Count 4.53 M/mm3 (4.20-5.40); Red Cell Distribution Width 13.9 % (11.5-17.5); White Blood Count 18.8 K/mm3 (4.8-10.8)
[2024-06-16 18:44] LABS: MANUAL DIFFERENTIAL MANUAL DIFFERENTIAL (MANUAL DIFF)
[2024-06-16 18:45] LABS: Lactate Venous 1.9 mmol/L (0.4-2.0); VBG Base Excess -2.1 mmol/L (-2.4-2.3); VBG HCO3 22.3 mmol/L (23-30); VBG Oxygen Saturation 53.4 % (50-70); VBG PCO2 34.3 mmol/L (35-51); VBG PH 7.43 mmol/L (7.31-7.41); VBG PO2 27.1 mmol/L (28-40); VBG Total CO2 23.3 mmol/L (23-27)
--- NOTE | 2024-06-16 18:53 | PC.NURSE ---
Addendum entered by Alejandra Calle RN 06/16/24 18:55: DR JAQUEZ AT BEDSIDE WHILE PT PLACED IN BED BY STAFF. MOTHER WITH PT PROVIDING MOST OF INFORMATION. PT AROUSES TO STERNAL RUB AND MUMBLES ANSWERS TO QUESTIONS. SEIZURE PADS PLACED ON BED. DOPPLER OF FHT'S 130-140'S PER DOPPLER. MOVEMENT PALPATED BY THIS NURSE Original Note: DR JAQUEZ AT BEDSIDE
--- NOTE | 2024-06-16 19:03 | HMH.EDGENADL ---
Discharge Plan Disposition Patient Disposition: Admitted Condition: Fair Clinical Impressions Clinical Impression: Intractable nausea and vomiting, Hypokalemia, Seizure-like activity Discharge ED Provider: Kylie Vicente General Adult HPI General Chief complaint: Seizure Stated complaint: Seizure Time Seen by Provider: 06/16/24 18:34 Mode of Arrival: Wheelchair Source of Information: Patient and Relative Limitations: No Limitations Description of Symptoms (Recalled from ER Triage Doc. by RN): PT ARRIVES VIA WHEELCHAIR WITH MOTHER, CURRENTLY HAVING SEIZURE. MOTHER REPORTS SEIZURES STARTED AROUND 1500, LASTING 3-5 MINUTES. MOTHER REPORTS MULTIPLE SEIZURES RN MEDICAL INPATIENT SERVICES. UPON WAKING PT REPORTS NO SYMPTOMS PRIOR, ONLY STATES SHE WAS UNABLE TO EAT OR DRINK. MOTHER REPORTS SEIZURES STARTED DURING LAST IN 2022, NO ON MEDICATIONS. PT CURRENTLY 24 WEEKS History of Present Illness HPI narrative: This patient is a 28-year-old female with a history of hypothyroidism, hypokalemia, prior presenting with concern for seizure. She is reportedly 24 weeks . Patient arrives seizing so she is not able to contribute to history. her mom states that she has had all kinds of issues since she was last year and has had to be admitted multiple times for dehydration. She states she is concerned that she is dehydrated again. She ran out of her Zofran a few days ago reportedly and has had vomiting and poor oral intake since then she states that she has had a history of seizures in the past but has never required any medication for seizures and has never been put on any medications. She does not follow with a neurologist. Her mom reports that she has had multiple seizures today. After moving the patient over from wheelchair to bed, sternal rub aborted her seizure. She was able to answer questions with no postictal period. She states lasting treatment versus being on the way home from [place] and then that all she remembers. Related Data Home Medications ?Medication ?Instructions ?Recorded ?Confirmed vit no.95-ferrous 1 tab PO DAILY 03/30/24 04/28/24 fumarate 28 mg-folic acid 800 mcg tablet () promethazine 25 mg tablet 25 mg PO TIDP PRN nausea and 04/28/24 04/28/24 vomiting Previous Rx's ?Medication ?Instructions ?Recorded aspirin 81 mg chewable tablet 81 mg PO DAILY #30 tabs 03/30/24 terconazole 0.8 % vaginal cream 1 appful vaginal HS 7 days #20 03/30/24 grams potassium chloride 20 mEq/15 mL 20 meq (15 mL) PO BID #450 mL 05/02/24 oral liquid ondansetron 4 mg disintegrating 4 mg PO Q6HP PRN nausea and 06/16/24 tablet vomiting #30 tabs ondansetron 4 mg disintegrating 4 mg PO Q8H PRN nausea and 06/16/24 tablet vomiting 4 days #12 tabs Allergies Allergy/AdvReac Type Severity Reaction Status Date / Time No Known Allergies Allergy Verified 04/28/24 11:04 [facility] Disclaimer: The information contained in this section may have been updated after the patient was seen, as this information can be updated by other users. Medical History Thyroiditis Hypokalemia Hyperthyroidism affecting Surgical History History of section Family History Other Asthma Cancer Diabetes Family history of diabetes mellitus type II Heart attack Hyperlipidemia Hypertension Social History Smoking Status: Current every day smoker tobacco type: cigarettes packs per day: 1 second hand exposure: Yes alcohol intake: never substance use type: former substance user and marijuana current occupational status: employed Travel in the last 8 weeks: None ROS Obtained: Yes All systems reviewed & no additional complaints except as documented Physical Exam General General appearance: alert Comment: seizing upon arrival, aborted with sternal rub, then agitated and uncooperative but A&O x 4. Normal vitals with no tachycardia noted. Head Head exam: atraumatic and normocephalic Eye Eye exam: Present normal appearance, PERRL and EOMI ENT ENT exam: Present normal exam, normal oropharynx, mucous membranes moist and normal external ear exam Neck Neck exam: Present normal inspection, full ROM and trachea midline; Absent tenderness Chest Chest inspection: Present normal inspection and symmetric chest wall rise; Absent tenderness Respiratory Respiratory exam: Present normal lung sounds bilaterally; Absent respiratory distress, wheezes, stridor or accessory muscle use Cardiovascular Cardiovascular exam: Present regular rate and normal rhythm Abdominal Exam Abdominal exam: Present soft; Absent distention, tenderness or guarding Extremities Exam Extremities exam: Present normal inspection, full ROM and normal capillary refill; Absent tenderness or edema Back Exam Back exam: Present normal inspection and full ROM; Absent tenderness Neurological Exam Neurological exam: Present alert, oriented X3, CN II-XII intact and normal gait; Absent motor sensory deficit Psychiatric Psychiatric exam: Present normal affect and normal mood Skin Skin exam: Present warm and dry Medical Decision Making Medical Records Medical records reviewed: Yes I reviewed the patient's medical records. [place] Inquiry Pt receiving controlled substance: No Vital Signs: 06/16/24 18:28 06/16/24 19:00 06/16/24 19:30 Temperature 98.0 F Temperature Source Temporal Artery Scan Pulse Rate 61 65 Pulse Rate [Radial] 62 Respiratory Rate 16 Blood Pressure 100/66 L 121/72 Blood Pressure [Right Arm] 124/51 L Blood Pressure Mean Blood Pressure Mean [Right Arm] 75 Blood Pressure Source [Right Arm] Automatic Cuff Blood Pressure Position [Right Arm] Left Lateral 02 Sat by Pulse Oximetry 100 99 97 Oxygen Delivery Method Nasal Cannula Oxygen Flow Rate (LPM) 2 06/16/24 20:10 06/16/24 20:30 06/16/24 21:00 Temperature Temperature Source Pulse Rate 60 60 63 Pulse Rate [Radial] Respiratory Rate 14 19 23 Blood Pressure 116/66 118/75 120/75 Blood Pressure [Right Arm] Blood Pressure Mean Blood Pressure Mean [Right Arm] Blood Pressure Source [Right Arm] Blood Pressure Position [Right Arm] 02 Sat by Pulse Oximetry 99 99 96 Oxygen Delivery Method Room Air Room Air Room Air Oxygen Flow Rate (LPM) 06/16/24 21:30 06/16/24 22:00 06/16/24 22:30 Temperature Temperature Source Pulse Rate 65 60 61 Pulse Rate [Radial] Respiratory Rate 21 20 19 Blood Pressure 116/68 115/66 117/65 Blood Pressure [Right Arm] Blood Pressure Mean 82 Blood Pressure Mean [Right Arm] Blood Pressure Source [Right Arm] Blood Pressure Position [Right Arm] 02 Sat by Pulse Oximetry 96 98 99 Oxygen Delivery Method Room Air Oxygen Flow Rate (LPM) Lab Data Lab results reviewed: Yes I reviewed the patient's lab results. Lab Results 06/16/24 18:32: WBC 18.8 H, RBC 4.53, Hgb 14.2, Hct 42.3, MCV 93.4, MCH 31.3 H, MCHC 33.6, RDW 13.9, Plt Count 407, MPV 7.9, Neut % (Auto) 89.8 H, Lymph % (Auto) 7.7 L, [place] % (Auto) 1.6 L, Eos % (Auto) 0.7, Baso % (Auto) 0.3, Neut # (Auto) 16.9 H, Lymph # (Auto) 1.5, [place] # (Auto) 0.3, Eos # (Auto) 0.1, Baso # (Auto) 0.1, Total Counted 100, Neutrophils % (Manual) 94 H, Lymphocytes % (Manual) 5 L, Monocytes % (Manual) 1 L, Platelet Estimate Normal, RBC Morphology Normal, Sodium 137, Potassium 2.8 L*, Chloride 105, Carbon Dioxide 22, Anion Gap 12.8, BUN 8, Creatinine 0.40 L, Estimated Creat Clear 147, Estimated GFR 187, Est GFR ( Amer) 227, Glucose 111 H, Calcium 9.4, Magnesium 1.6, Total Bilirubin 0.9, AST 29, ALT 19, Alkaline Phosphatase 121, Total Creatine Kinase 36, Total Protein 7.9 D, Albumin 4.3, Globulin 3.6 H, Albumin/Globulin Ratio 1.2, TSH 0.96, Thyroxine (T4) 22.3 H, Plasma/Serum Alcohol < 10 06/16/24 18:41: VBG pH 7.43 H, VBG pCO2 34.3 L, VBG pO2 27.1 L, VBG HCO3 22.3 L, VBG Total CO2 23.3, VBG O2 Saturation 53.4, VBG Base Excess -2.1, VBG Lactic Acid 1.9 06/16/24 20:30: Urine Color Yellow, Urine Appearance Clear, Urine pH 6.5, Ur Specific Drake >= 1.030, Urine Protein 2+, Urine Glucose (UA) Negative, Urine Ketones 3+, Urine Blood Negative, Urine Nitrate Negative, Urine Bilirubin Negative, Urine Urobilinogen 1.0, Ur Leukocyte Esterase Negative, Urine RBC Occasional, Urine WBC 5-10, Ur Squamous Epith Cells 10-20, Urine Bacteria Trace, Urine Opiates Screen Negative, Urine Methadone Screen Negative, Ur Barbituates Screen Negative, Ur Phencyclidine Scrn Negative, Ur Amphetamines Screen Negative, U Benzodiazepines Scrn Negative, Urine Cocaine Screen Negative, U Marijuana (THC) Screen Positive H 06/16/24 20:40: Lactate 1.2 06/16/24 18:32 06/16/24 18:32 Orders (Tests/Meds): ED MEDICATIONS Generic Name Dose Route Start Last Admin Trade Name Freq PRN Reason Stop Dose Admin Acetaminophen 650 mg 06/16/24 23:06 Acetaminophen 325mg Tab PO 07/16/24 23:05 Q6HP PRN Fever or Mild Pain (1-3) Lactated Ringer's 1,000 mls @ 50 mls/hr 06/16/24 23:15 Lactated Ringer's 1000 Ml Bag IV 07/16/24 23:14 .Q20H ANITA Ondansetron HCl 4 mg 06/16/24 23:06 Ondansetron 4mg/2ml Vial IV 07/16/24 23:05 Q8HP PRN Nausea And Vomiting Promethazine HCl 25 mg 06/16/24 23:31 06/16/24 23:34 Promethazine Hcl 25mg/Ml 1ml Vial IV 06/16/24 23:32 25 mg ONCE ONE Administration Discontinued Medications Generic Name Dose Route Start Last Admin Trade Name Freq PRN Reason Stop Dose Admin Lactated Ringer's 1,000 mls @ 999 mls/hr 06/16/24 18:35 06/16/24 18:37 Lactated Ringer's 1000 Ml Bag IV 06/16/24 19:35 999 mls/hr .Q1H1M ONE Administration Lactated Ringer's 1,000 mls @ 999 mls/hr 06/16/24 19:41 06/16/24 20:08 Lactated Ringer's 1000 Ml Bag IV 06/16/24 20:41 999 mls/hr .Q1H1M ONE Administration Potassium Chloride/Water 100 mls @ 50 mls/hr 06/16/24 19:42 06/16/24 22:28 Potassium Chloride 20meq/100ml Ivpb IV 06/16/24 23:41 50 mls/hr Q2H ANITA Administration Ondansetron HCl 4 mg 06/16/24 18:34 06/16/24 18:37 Ondansetron 4mg/2ml Vial IV 06/16/24 18:35 4 mg ONCE ONE Administration Ondansetron HCl 4 mg 06/16/24 20:38 06/16/24 20:42 Ondansetron 4mg/2ml Vial IV 06/16/24 20:39 4 mg ONCE ONE Administration Potassium Chloride 40 meq 06/16/24 19:41 Potassium Chloride 20meq Tab PO 06/16/24 19:42 ONCE ONE ORDERS Category Date Time Status CBC w/Auto Diff [Complete Blood Count Auto Diff] AMLAB Lab 06/17/24 06:00 Ordered CK [Creatine Kinase] Stat Lab 06/16/24 18:32 Completed CMP [Comprehensive Metabolic Panel] AMLAB Lab 06/17/24 06:00 Ordered Complete Blood Count Auto Diff Stat Lab 06/16/24 18:32 Completed Comprehensive Metabolic Panel Stat Lab 06/16/24 18:32 Completed Ethyl Alcohol Stat Lab 06/16/24 18:32 Completed Lactic Acid Stat Lab 06/16/24 20:40 Completed MAG [Magnesium] Stat Lab 06/16/24 18:32 Completed Magnesium AMLAB Lab 06/17/24 06:00 Ordered T4 (Thyroxine) Stat Lab 06/16/24 18:32 Completed TSH [Thyroid Stimulating Hormone] Stat Lab 06/16/24 18:32 Completed UA [Urinalysis and Microscopic] Stat Lab 06/16/24 20:30 Completed UDS [Drug Screen,Urine] Stat Lab 06/16/24 20:30 Completed VBG [Venous Blood Gas] Stat RT 06/16/24 18:41 Completed EKG Request [ECG Request] NEEDED Y 06/16/24 23:15 Ordered ECG Data Tracing #1: I reviewed this ECG and interpreted as documented below: Significant artifact degraded study. From what I can tell, normal sinus rhythm with a ventricular rate of 76 bpm. Normal intervals. Appears to be normal axis. I do not appreciate any obvious acute ST changes. ECG initial impression date: 06/16/24 ECG initial impression time: 19:10 Tracing #2: I reviewed this ECG and interpreted as documented below: Ectopic atrial bradycardia with T wave inversions/U waves consistent with the patient's hypokalemia. ECG initial impression date: 06/16/24 ECG initial impression time: 20:34 Medical Decision Narrative: In summary, this patient is a 28-year-old female presenting to the Emergency Department for evaluation of seizure. She is 24 weeks . Differential diagnoses considered include but are not limited to seizure, status epilepticus, PNES, eclampsia, hypoglycemia, electrolyte derangements. Ruling out the most morbid conditions drove assessment. It should be noted patient's history includes hyperthyroidism which may or may not be at goal therapy. This complicates all aspects of care by increasing patient's risk for morbidity. I reviewed patient's past medical records and noted previous admission for dehydration in April. On exam, the patient arrived initially seizing with generalized tonic-clonic seizure with normal vital signs on cardiac telemetry, including no tachycardia or hypertension. Seizure aborted with sternal rub, and patient had no postictal period. She was then agitated and combative, asking for Pepsi and refusing to answer questions. Fingerstick glucose is normal. Workup included broad lab evaluation including CBC, CMP, VBG, lactic acid, TSH, T4, mag, alcohol level, urinalysis, urine drug screen. EKG was obtained but patient would not lay still, so there was significant motion artifact grading the study. Patient is given a bolus of IV fluids and IV Zofran, as her mom states she is been having issues with hyperemesis gravidarum. On subsequent reassessment, the patient had repeated seizure-like activity, but with sternal rub, she immediately screamed expletives and said to leave her alone or she was going to walk out and leave. I have low concern that these are true seizures. They always abort with painful stimulus and she has no postictal period. A subsequent seizure episode stopped with me asking her to stop moving. Labs demonstrated significant hypokalemia, for which both oral and IV replacement were ordered. Patient does have leukocytosis in the setting of hyperemesis gravidarum and dehydration. She has had chronic leukocytosis as well. She has a mild alkalosis. She does have proteinuria and ketonuria, which I feel is likely related to dehydration in the setting of hyperemesis gravidarum. Again, she is not hypertensive. Kidney function normal, platelet count normal, liver enzymes normal. UDS positive for marijuana. I had an interactive discussion with Dr. Munson with [employer] who advised that she would be happy to admit the patient for monitoring, electrolyte repletion, and symptomatic management, however patient states that she is not staying here. She states she will stay long enough for potassium replacement and fluids, but she will not stay beyond that. I explained to her reasoning for admission and risk of going home with significantly low potassium and intractable vomiting as well as with concern for possible seizure activity in the setting of , but she does not want to stay despite understanding the risk. I explained to her that risk could potentially include cardiac dysrhythmia and , especially since her EKG is abnormal. She is alert and oriented x 4 and has decision-making capacity and adamantly refuses admission. Pepsi was given to her at her request. At 2019, patient was placed in ED observation status pending potassium replacement and fluid repletion. The patient was provided serial reevaluations and cardiac monitoring while awaiting ultimate disposition. Patient care signed out to the oncoming provider, Dr. Bay, pending potassium repletion and reassessment. At 2300, patient was agreeable to be admitted, as she changed her mind. I had another discussion with Dr. Munson who agreed to admit the patient. She was admitted in stable condition. Shortly after admission orders were placed, patient vomited again and then got up and stated that she was leaving because we were trying to put her in a gown since she had vomited all over her clothes. Her mom is here and urged her to be admitted, but patient refuses. After same discussion above with regards to the risk of hypokalemia, including dysrhythmia and cardiac , patient signed AMA forms and left AGAINST MEDICAL ADVICE with her mom in stable condition. Critical Care Critical Care Time Critical Care Time: Yes Attestation: On 06/16/24, the high probability of a clinically significant, sudden or life threatening deterioration of the following system(s) required my full and direct attention, intervention and personal management. The time I documented below is in addition to time spent performing reported procedures but includes the following listed in this critical care notation. Total Time Total Critical Care Time: 45
--- NOTE | 2024-06-16 19:07 | PC.NURSE ---
WHILE TRYING TO OBTAIN EKG, PT STARTED TO SHAKE, DID NOT RESPOND TO NAME. STERNAL RUB OF PT, PT SCREAMED QUIT THAT FUCKEN SHIT, I'M LEAVING RIGHT NOW! DR JAQUEZ AT BEDSIDE TO REEVALUATE PT.
--- NOTE | 2024-06-16 19:08 | ECG_ITS ---
APPROVED REPORT Exam: Resting ECG HR:76 bpm ECG Measurements Heart Rate 76 AXES WV 192 P 252 QRSd 71 QRS 82 QT 381 T 94 QTc 411 Conclusion ECTOPIC ATRIAL RHYTHM WITH OCCASIONAL SUPRAVENTRICULAR PREMATURE COMPLEXES Significant motion artifact degrades study Electronically signed by : ERI JAQUEZ, 06/16/2024 23:55:46
[2024-06-16 19:18] LABS: Lymphocytes % 5 % (10-50); Monocytes % 1 % (2-9); Neutrophils % 94 % (42-76); Platelet Estimate Normal; RBC Morphology Normal; Total Cells Counted 100
[2024-06-16 19:26] LABS: Alanine Aminotransferase 19 U/L (12-78); Albumin Level 4.3 g/dl (3.5-5.0); Albumin/Globulin Ratio 1.2 (1.1-1.8); Alkaline Phosphatase 121 U/L (38-126); Anion Gap 12.8 mEq/L (5-15); Aspartate Amino Transferase 29 U/L (14-36); Bilirubin,Total 0.9 mg/dl (0.2-1.3); Blood Urea Nitrogen 8 mg/dl (7-17); Calcium 9.4 mg/dl (8.4-10.2); Carbon Dioxide 22 mmol/L (22.0-30.0); Chloride 105 mmol/L (98-107); Creatine Kinase 36 U/L (30-135); Creatinine Clearance Estimated 147 mL/min (50-200); Estimated Glomerular Filt Rate 187 ml/min (>60); GFR (African American) 227 ML/MIN (>60); Globulin 3.6 g/dL (1.3-3.2); Glucose 111 mg/dl (74-100); Sodium 137 mmol/L (136-145); Total Protein,Serum 7.9 g/dl (6.3-8.2)
[2024-06-16 19:27] LABS: Magnesium 1.6 mg/dl (1.6-2.3)
[2024-06-16 19:29] LABS: Ethyl Alcohol < 10 mg/dl (0-10)
[2024-06-16 19:34] LABS: Potassium 2.8 mmoL/L (3.5-5.1)
[2024-06-16 19:44] LABS: T4 (Thyroxine) 22.3 ug/dl (5.53-11.0)
[2024-06-16 19:56] LABS: Thyroid Stimulating Hormone 0.96 uIU/mL (0.465-4.68)
[2024-06-16] MEDS: KCl 20mEq/100ml 100 ML 50 MEQ IV ×2 (20:07→22:28)
--- NOTE | 2024-06-16 20:27 | ECG_ITS ---
APPROVED REPORT Exam: Resting ECG HR:57 bpm ECG Measurements Heart Rate 57 AXES FL 146 P -89 QRSd 80 QRS 77 QT 467 T 58 QTc 462 Conclusion ECTOPIC ATRIAL BRADYCARDIA POSSIBLE RIGHT VENTRICULAR CONDUCTION DELAY [RSR (QR) IN V1/V2] NONSPECIFIC T-WAVE ABNORMALITY ABNORMAL RHYTHM ECG Electronically signed by : ERI JAQUEZ, 06/16/2024 23:55:07
[2024-06-16 20:46] LABS: Microscopic, Urine URINE MICROSCOPIC (MICROSCOPIC)
[2024-06-16 20:48] LABS: Appearance,Urine CLEAR (Clear); Bilirubin,Urine Negative (Negative); Blood, Urine Negative (Negative); Color,Urine YELLOW (Yellow); Glucose,Urine (UA) Negative (Negative); Ketones,Urine 3+ (Negative); Leukocyte Esterase,Urine Negative (Negative); Nitrate,Urine Negative (Negative); PH,Urine 6.5 (5.0-8.5); Protein,Urine 2+ (Negative); Specific Gravity, Urine >= 1.030 (1.005-1.030)
[2024-06-16 21:21] LABS: Barbiturates Screen,Urine Negative ng/ml (<200)
[2024-06-16 21:22] LABS: Benzodiazepines Screen,Urine Negative ng/ml (<200)
[2024-06-16 21:23] LABS: Amphetamine/Metha Screen,Urine Negative ng/ml (<1000); Cannabinoid Screen,Urine Positive ng/ml (<50)
[2024-06-16 21:24] LABS: Cocaine Screen,Urine Negative ng/ml (<300); RBC,Urine Occasional #/hpf (0-3)
[2024-06-16 21:25] LABS: Bacteria,Urine Trace /lpf; Methadone Screen,Urine Negative ng/ml (<300); Opiate Screen,Urine Negative ng/ml (<300)
[2024-06-16 21:26] LABS: Phencyclidine Screen,Urine Negative ng/ml (<25)
[2024-06-16 21:28] LABS: Lactic Acid 1.2 mmol/L (0.7-2.1)
--- NOTE | 2024-06-16 23:16 | PC.NURSE ---
Dr. Vicente s/w pt again and she is now willing to stay and be admitted. parachute manufacturing supervisor notified of admission
--- NOTE | 2024-06-16 23:27 | PC.NURSE ---
Gave report to Teja CRAWLEY on Med/Surg
--- NOTE | 2024-06-16 23:31 | PC.NURSE ---
Pt awoke and sat up in bed and projectile vomited around bed & pt's room. Dr. Vicente gave verbal order for Phenergan 25mg IV
--- NOTE | 2024-06-16 23:36 | PC.NURSE ---
mother is now at bedside. Pt is stating I don't want to stay, I want to go home, I'll come back in the morning . Dr. Vicente aware of pt's wishes. Pt and her mother are yelling at each other. Staff is attempting to help clean pt up and get her into a clean gown. Pt is refusing to allow staff to help clean her up and give her a clean gown.
--- NOTE | 2024-06-16 23:45 | PC.NURSE ---
Pt is also stating no one was in here helping me when I was gagging and I'm not staying here with Dr. Jaime because he doesn't know his ass from a hole in the ground . Pt and her mother advised against leaving the hospital. She is refusing to let us assist her changing into a clean gown or new linens. Pt signed AMA form. Pt's father walked into the room and grabbed pt's arm, saying don't sign that and let's get out of here .
--- NOTE | 2024-06-17 03:58 | PC.NURSE ---
Received call from [facility] requesting copy of ED summary from pt last visit here today. Faxed to [phone].
== END 2024-06-16 23:49 | disposition left against medical advice (07) ==
LOC: ER 23:10 → 2ND 23:36 → OB 23:50
PROVIDERS: Emergency Provider Emergency Medicine; PCP Nurse Practitioner Family; Visit Provider Internal Medicine Adolescent Medicine
DX: O21.1 Hyperemesis gravidarum with metabolic disturbance (principal); R56.9 Unspecified convulsions; O99.332 Smoking (tobacco) complicating pregnancy, second trimester; F17.210 Nicotine dependence, cigarettes, uncomplicated; O99.322 Drug use complicating pregnancy, second trimester; F12.90 Cannabis use, unspecified, uncomplicated; Z3A.24 24 weeks gestation of pregnancy
CPT/HCPCS: 80050; 80053; 80307; 80320; 81001; 82550; 82803; 83605; 83735; 84436; 84443; 85007; 85025; 93005; 96361; 96365; 96366; 96375; 96376; 99285; G0378; G0480; J2405; J7120

== ENCOUNTER 2024-06-24 11:07 | Outpatient (CLI) | payer OTHER, SELFPAY ==
[2024-06-24 11:36] VITALS: BP 145/82; PULSE 102; RESP 20; TEMP 36.6; O2SAT 98
[2024-06-24] MEDS: MVI, ADULT NO.1 WITH VIT K 10 ML, THIAMINE HCL 100 MG, MAGNESIUM SULFATE 2 GM in LACTAT... 150 ML IV (11:36)
[2024-06-24 12:12] LABS: Chloride 102 mmol/L (98-107)
[2024-06-24 12:13] LABS: Albumin Level 3.6 g/dl (3.5-5.0); Potassium 3.2 mmoL/L (3.5-5.1); Sodium 134 mmol/L (136-145)
[2024-06-24 12:15] LABS: Alanine Aminotransferase 51 U/L (12-78); Anion Gap 9.2 mEq/L (5-15); Aspartate Amino Transferase 39 U/L (14-36); Bilirubin,Total 0.5 mg/dl (0.2-1.3); Blood Urea Nitrogen 4 mg/dl (7-17); Carbon Dioxide 26 mmol/L (22.0-30.0); Estimated Glomerular Filt Rate 187 ml/min (>60); GFR (African American) 227 ML/MIN (>60)
[2024-06-24 12:16] LABS: Albumin/Globulin Ratio 1.3 (1.1-1.8); Alkaline Phosphatase 116 U/L (38-126); Calcium 8.7 mg/dl (8.4-10.2); Globulin 2.7 g/dL (1.3-3.2); Glucose 95 mg/dl (74-100); Total Protein,Serum 6.3 g/dl (6.3-8.2)
[2024-06-24 12:35] VITALS: BP 129/76; PULSE 97; RESP 20; O2SAT 98
[2024-06-24 13:50] VITALS: BP 118/70; PULSE 80; RESP 20; O2SAT 98
[2024-06-25 11:12] LABS: Thyroid Peroxidase Antibodies <9 IU/mL (0-34)
== END 2024-06-24 13:50 | disposition home or self-care (01) ==
LOC: LAB 11:08 → INF 11:19
PROVIDERS: PCP Nurse Practitioner Family; Visit Provider Nurse Practitioner Obstetrics & Gynecology
DX: O99.281 Endocrine, nutritional and metabolic diseases complicating pregnancy, first trimester (principal); E05.90 Thyrotoxicosis, unspecified without thyrotoxic crisis or storm; E87.6 Hypokalemia
CPT/HCPCS: 36415; 80053; 86376; 96365; 96366; J3411; J7120

== ENCOUNTER 2024-07-14 10:26 | Outpatient (CLI) | payer OTHER, SELFPAY ==
[2024-07-14 10:49] LABS: Basophils # 0.1 K/mm3 (0-0.2); Basophils % 0.5 % (0.1-2.0); Eosinophils # 0.1 K/mm3 (0.0-0.4); Eosinophils % 1.3 % (0.1-12.0); Hematocrit 36.8 % (37.0-47.0); Hemoglobin 11.8 g/dL (12.2-16.2); Lymphocytes % 23.6 % (10-50); Mean Corpuscular Hemoglobin 30.3 pg (27.0-31.2); Mean Corpuscular Volume 94.8 fl (81-99); Mean Platelet Volume 8.7 fl (7.4-10.4); Monocytes # 0.3 K/mm3 (0.1-1.0); Monocytes % 3.9 % (1.7-9.3); Neutrophils % 70.7 % (37.0-80.0); Platelet Count 325 K/mm3 (142-424); Red Blood Count 3.87 M/mm3 (4.20-5.40); Red Cell Distribution Width 13.5 % (11.5-17.5); White Blood Count 8.4 K/mm3 (4.8-10.8)
[2024-07-14 11:11] LABS: Albumin Level 3.4 g/dl (3.5-5.0); Chloride 108 mmol/L (98-107); Potassium 3.9 mmoL/L (3.5-5.1); Sodium 135 mmol/L (136-145)
[2024-07-14 11:14] LABS: Alanine Aminotransferase 13 U/L (12-78); Albumin/Globulin Ratio 1.3 (1.1-1.8); Alkaline Phosphatase 105 U/L (38-126); Anion Gap 6.9 mEq/L (5-15); Aspartate Amino Transferase 22 U/L (14-36); Bilirubin,Total 0.6 mg/dl (0.2-1.3); Blood Urea Nitrogen 4 mg/dl (7-17); Carbon Dioxide 24 mmol/L (22.0-30.0); Estimated Glomerular Filt Rate 187 ml/min (>60); GFR (African American) 227 ML/MIN (>60); Globulin 2.7 g/dL (1.3-3.2); Total Protein,Serum 6.1 g/dl (6.3-8.2)
[2024-07-14 11:15] LABS: Calcium 8.5 mg/dl (8.4-10.2); Glucose 72 mg/dl (74-100)
[2024-07-14 11:44] LABS: Thyroid Stimulating Hormone 0.72 uIU/mL (0.465-4.68)
== END 2024-07-14 23:59 | disposition home or self-care (01) ==
LOC: LAB 10:26
PROVIDERS: PCP Nurse Practitioner Family; Visit Provider Obstetrics & Gynecology
DX: O99.281 Endocrine, nutritional and metabolic diseases complicating pregnancy, first trimester (principal); E05.90 Thyrotoxicosis, unspecified without thyrotoxic crisis or storm
CPT/HCPCS: 36415; 80050; 80053; 84443; 85025

== ENCOUNTER 2024-07-29 09:11 | Outpatient (CLI) | payer OTHER, SELFPAY ==
[2024-07-29 09:59] LABS: Basophils % 0.4 % (0.1-2.0); Eosinophils # 0.1 K/mm3 (0.0-0.4); Eosinophils % 1.2 % (0.1-12.0); Hematocrit 37.4 % (37.0-47.0); Hemoglobin 11.8 g/dL (12.2-16.2); Lymphocytes % 19.3 % (10-50); Mean Corpuscular HGB Conc 31.7 g/dL (31.8-35.4); Mean Corpuscular Hemoglobin 29.4 pg (27.0-31.2); Mean Platelet Volume 8.8 fl (7.4-10.4); Monocytes # 0.4 K/mm3 (0.1-1.0); Monocytes % 4.2 % (1.7-9.3); Neutrophils # 7.6 K/mm3 (1.8-7.8); Neutrophils % 74.8 % (37.0-80.0); Platelet Count 314 K/mm3 (142-424); Red Blood Count 4.02 M/mm3 (4.20-5.40); Red Cell Distribution Width 13.7 % (11.5-17.5); White Blood Count 10.1 K/mm3 (4.8-10.8)
[2024-07-29 10:16] LABS: Glucose,Fasting 73 mg/dl (74-100)
[2024-07-29 11:10] LABS: Glucose 1 Hour 151 mg/dL (74-100)
[2024-07-30 13:38] LABS: Rapid Plasma Reagin Ab Titer Non Reactive titer (NonRea<1:1)
== END 2024-07-29 23:59 | disposition home or self-care (01) ==
LOC: LAB 09:12
PROVIDERS: PCP Nurse Practitioner Family; Visit Provider Obstetrics & Gynecology
DX: Z34.90 Encounter for supervision of normal pregnancy, unspecified, unspecified trimester (principal)
CPT/HCPCS: 36415; 82951; 85025; 86593

== ENCOUNTER 2024-08-03 13:01 | Outpatient (CLI) | payer OTHER, SELFPAY ==
--- NOTE | 2024-08-03 13:09 | US_ITS ---
PROCEDURE: US OB BIOPHYSICAL PROFILE CLINICAL INDICATION: sga, hyperthyroidism,keri COMPARISON: US US OB TRANSVAGINAL from 03/23/2024 US US OB /MATERNAL DETAIL from 05/05/2024 FINDINGS: Transabdominal sonographic images of the uterus were obtained. From her established due date she is 33weeks 1days. The following parameters are obtained: Viable Fetus in the cephalic presentation with an anterior placenta grade 2. Average ultrasound age is 31weeks 5days Estimated weight 1,746g, 3 lb 14 oz Cervix measures 2.8 cm. Measurements: heart Rate = 125bpm BPD = 31weeks 0 days, <2 percentile HC = 33weeks 4days, 20 percentile AC = 31weeks 2days, 6 percentile FL = 31weeks 0 days,< 2 percentile HC/AC is 1.11 FL/BPD is 0.77 FL/AC is 0.22 5 percentile Amniotic fluid index: 9.81cm, MVP 3.91 cm. Qualitative AFV:2 Breathing movements: 2 Gross Body Movements: 2 Tone: 2 Biophysical profile score: 8 Doppler evaluation of the umbilical artery: SD ratio: 2.52-2.93, normal 2.59-3.68 Resistive index: 0.6 No obvious anomalies evident.Kidneys, four-chamber heart, three-vessel cord appear normal. There is unilateral renal pelvis dilation measuring 5.7 mm. IMPRESSION: 1. Viable fetus in the cephalic presentation with an anterior placenta grade 2. 2. The fluid is within normal limits with an amniotic fluid index of 9.81 cm, MVP 3.91 cm. 3. Biophysical score is 8/8 with good breathing movement and movement seen. 4. SD ratio is normal 2.52-2.93. 5. There has been good interval growth but the fetus continues to be symmetrically small and is 5th percentile. The AC is about 2 weeks behind. 6. Limited anatomical scan appears normal. Dictated by: Manolo Jaime MD 08/04/2024 09:00 Manolo Jaime MD in [place] 08/04/2024 09:00
== END 2024-08-03 23:59 | disposition home or self-care (01) ==
LOC: RAD 13:02
PROVIDERS: Visit Provider Obstetrics & Gynecology
DX: O36.5930 Maternal care for other known or suspected poor fetal growth, third trimester, not applicable or unspecified (principal); O99.283 Endocrine, nutritional and metabolic diseases complicating pregnancy, third trimester; E05.90 Thyrotoxicosis, unspecified without thyrotoxic crisis or storm; O28.8 Other abnormal findings on antenatal screening of mother; Z3A.33 33 weeks gestation of pregnancy
CPT/HCPCS: 76816; 76819; 76820

== ENCOUNTER 2024-08-09 08:09 | Outpatient (CLI) | payer OTHER, SELFPAY | END 2024-08-09 23:59 | disposition home or self-care (01) | LOC: LAB 08:10 | PROVIDERS: PCP Nurse Practitioner Family; Visit Provider Obstetrics & Gynecology | DX: Z34.90 Encounter for supervision of normal pregnancy, unspecified, unspecified trimester (principal) | CPT/HCPCS: 36415 ==

== ENCOUNTER 2024-08-25 13:59 | Outpatient (CLI) | payer OTHER, SELFPAY ==
--- NOTE | 2024-08-25 13:59 | US_ITS ---
PROCEDURE: US OB BIOPHYSICAL PROFILE CLINICAL INDICATION: IUGR COMPARISON: US US OB TRANSVAGINAL from 03/23/2024 US US OB /MATERNAL DETAIL from 05/05/2024 US US OB BIOPHYSICAL PROFILE from 08/03/2024 FINDINGS: Transabdominal sonographic images of the uterus were obtained. From her established due date she is 36weeks 2days. The following parameters are obtained: Viable Fetus in the cephalic presentation with an anterior placenta grade 3. Average ultrasound age is 34weeks 3days Estimated weight 2,452g, 5 lb 6 oz Cervix measures 3.16 cm Measurements: heart Rate = 119bpm BPD = 32weeks 1day, <2 percentile HC = 36weeks 1day, 16 percentile AC = 35weeks 0 days, 24 percentile FL = 34weeks 0 days, 5 percentile HC/AC is 1.03 FL/BPD is 0.82 FL/AC is 0.21 12 percentile Amniotic fluid index: 15.67cm MVP 7.02 cm. Qualitative AFV:2 Breathing movements: 2 Gross Body Movements: 2 Tone: 2 Biophysical profile score: 8 Doppler evaluation of the umbilical artery: SD ratio: 2.29-2.86 (normal up to 3.41 ) Resistive index: 0.61 No obvious anomalies evident.Kidneys, profile, bladder, stomach, four-chamber heart, three-vessel cord appear normal. There is mild bilateral renal pelvis dilation measuring 3.5 mm and 4.3 mm. IMPRESSION: 1. Viable fetus in the cephalic presentation with an anterior placenta grade 3. 2. The fluid is within normal limits with an amniotic fluid index 15.67 cm, MVP 7.02 cm. 3. Biophysical profile is 8/8 with good breathing movement and movement seen. 4. SD ratio is normal 2.29-2.86. 5. There has been good interval growth and the fetus now 12th percentile. 6. Limited anatomical scan appears normal. 7. Mild renal pelvis dilation continues to be present and is now bilateral. Dictated by: Manolo Jaime MD 08/26/2024 13:12 Manolo Jaime MD in [facility] 08/26/2024 13:12
== END 2024-08-25 23:59 | disposition home or self-care (01) ==
LOC: RAD 13:59
PROVIDERS: PCP Nurse Practitioner Family; Visit Provider Obstetrics & Gynecology
DX: O36.5930 Maternal care for other known or suspected poor fetal growth, third trimester, not applicable or unspecified (principal); Z98.891 History of uterine scar from previous surgery; O99.283 Endocrine, nutritional and metabolic diseases complicating pregnancy, third trimester; E05.90 Thyrotoxicosis, unspecified without thyrotoxic crisis or storm; O99.323 Drug use complicating pregnancy, third trimester; F12.90 Cannabis use, unspecified, uncomplicated; Z3A.36 36 weeks gestation of pregnancy
CPT/HCPCS: 76816; 76819; 76820

== ENCOUNTER 2024-08-30 05:09 | Inpatient (IN) | payer OTHER, SELFPAY ==
[2024-08-30 05:11] VITALS: BMI 19.3
[2024-08-30 05:45] VITALS: BP 116/75; PULSE 75; RESP 18; BMI 23.6
[2024-08-30 05:46] LABS: Microscopic, Urine URINE MICROSCOPIC (MICROSCOPIC)
[2024-08-30] MEDS: LACTATED RINGERS 1000ML 1,000 ML 999 ML IV ×2 (05:52)
[2024-08-30 05:57] LABS: Appearance,Urine CLEAR (Clear); Bilirubin,Urine Negative (Negative); Blood, Urine Negative (Negative); Color,Urine YELLOW (Yellow); Glucose,Urine (UA) Negative (Negative); Ketones,Urine Negative (Negative); Leukocyte Esterase,Urine TRACE (Negative); Nitrate,Urine Negative (Negative); PH,Urine 7.5 (5.0-8.5); Protein,Urine Negative (Negative); Specific Gravity, Urine 1.015 (1.005-1.030)
[2024-08-30 05:59] LABS: Basophils # 0.1 K/mm3 (0-0.2); Basophils % 0.6 % (0.1-2.0); Eosinophils # 0.1 K/mm3 (0.0-0.4); Eosinophils % 1.2 % (0.1-12.0); Hematocrit 34.5 % (37.0-47.0); Hemoglobin 11.8 g/dL (12.2-16.2); Lymphocytes # 1.9 K/mm3 (0.7-4.5); Lymphocytes % 21.4 % (10-50); Mean Corpuscular HGB Conc 34.3 g/dL (31.8-35.4); Mean Corpuscular Hemoglobin 29.6 pg (27.0-31.2); Mean Corpuscular Volume 86.3 fl (81-99); Mean Platelet Volume 8.5 fl (7.4-10.4); Monocytes # 0.4 K/mm3 (0.1-1.0); Monocytes % 4.7 % (1.7-9.3); Neutrophils # 6.3 K/mm3 (1.8-7.8); Platelet Count 301 K/mm3 (142-424); Red Blood Count 3.99 M/mm3 (4.20-5.40); Red Cell Distribution Width 13.9 % (11.5-17.5); White Blood Count 8.7 K/mm3 (4.8-10.8)
[2024-08-30 06:01] LABS: Albumin Level 3.4 g/dl (3.5-5.0); Chloride 108 mmol/L (98-107); Potassium 3.3 mmoL/L (3.5-5.1); Sodium 134 mmol/L (136-145)
[2024-08-30 06:03] LABS: Blood Urea Nitrogen 4 mg/dl (7-17); Creatinine Clearance Estimated 146 mL/min (50-200); Estimated Glomerular Filt Rate 187 ml/min (>60); GFR (African American) 227 ML/MIN (>60)
[2024-08-30 06:04] LABS: Alanine Aminotransferase 18 U/L (12-78); Albumin/Globulin Ratio 1.2 (1.1-1.8); Alkaline Phosphatase 182 U/L (38-126); Anion Gap 8.3 mEq/L (5-15); Aspartate Amino Transferase 23 U/L (14-36); Bilirubin,Total 0.5 mg/dl (0.2-1.3); Calcium 8.4 mg/dl (8.4-10.2); Carbon Dioxide 21 mmol/L (22.0-30.0); Globulin 2.9 g/dL (1.3-3.2); Glucose 80 mg/dl (74-100); Total Protein,Serum 6.3 g/dl (6.3-8.2)
[2024-08-30 06:07] LABS: Bacteria,Urine 1+ /lpf; Mucus,Urine 1+ /lpf
[2024-08-30 06:09] LABS: Amphetamine/Metha Screen,Urine Negative ng/ml (<1000)
[2024-08-30 06:10] LABS: Barbiturates Screen,Urine Negative ng/ml (<200)
[2024-08-30 06:11] LABS: Benzodiazepines Screen,Urine Negative ng/ml (<200); Cannabinoid Screen,Urine Positive ng/ml (<50)
[2024-08-30 06:12] LABS: Cocaine Screen,Urine Negative ng/ml (<300); Methadone Screen,Urine Negative ng/ml (<300)
[2024-08-30 06:13] LABS: Opiate Screen,Urine Negative ng/ml (<300)
[2024-08-30 06:14] LABS: Phencyclidine Screen,Urine Negative ng/ml (<25)
--- NOTE | 2024-08-30 07:13 | P.PNANES_ITS ---
[facility] Disclaimer: The information contained in this section may have been updated after the patient was seen, as this information can be updated by other users. Medical History Hyperthyroidism affecting Seizures Thyroiditis Hypokalemia Surgical History History of section Family History Other Asthma Cancer Diabetes Family history of diabetes mellitus type II Heart attack Hyperlipidemia Hypertension Social History Smoking Status: Current every day smoker tobacco type: cigarettes packs per day: 1 second hand exposure: Yes alcohol intake: never substance use type: former substance user and marijuana current occupational status: unemployed Travel in the last 8 weeks: None [facility] Anesthesia Checklist Patient Identification Patient Identification: Arm Band and Verbal (Name & ) Structural Data Admitted From: Home Planned Operative Procedure/s: Repeat C/S Consent for Planned Operative Procedure(s) Verified: Yes Verified Documents: Surgical Consent and History and Physical NPO Status Verified Time NPO: 00:00 Chart Verification Results Verified: CBC and BMP Additional verifications Fingerstick Blood Glucose: 98 (At home) Anesthesia Reactions: No Airway Assessment Mallampati Score:: Class II C-Spine Mobility Assessed: Yes TMJ Mobility Assessed: Yes Dentition: Edentulous Neurological Assessment Level of Consciousness: Awake Hx Seizures: Yes (Sz like activity - 4 months ago. On Keppra) Numbness or tingling in extremities: No Anesthesia Plan Anesthesia Risk discussed: Yes Anesthesia Plan: Verified ASA Class: II Anesthesia Type: Spinal
--- NOTE | 2024-08-30 07:40 | EXP.HP ---
History of Present Illness *Reason for visit:: Labor *History of present illness: Lary is a 28-year-old at 37 weeks and 0 days gestation who presented to labor and delivery for a scheduled delivery and bilateral salpingectomy. Her has been complicated by IUGR, previous delivery, rubella nonimmune, gestational diabetes, short interval , chronic hypertension, seizure-like activity, hypothyroidism, hypokalemia. On presentation patient endorsed good movement and denies any leakage of fluid or vaginal bleeding. Her last growth ultrasound was on 08/25/2024: Fetus was in cephalic presentation with an anterior grade 3 placenta. EFW: 2452 g, 5 pounds. This is a baby in the 12th percentile. Previously the has been in the less than 10th percentile. BPD was less than 2nd percentile, femur length was 5th percentile, HC: 16%, AC: 24%. MVP was appropriate at 7.02 cm. SD ratio was normal. BPP was 8/8. There continues to be mild renal pelvis dilation, bilaterally at 4.3 mm. A+, antibody negative, rubella not immune, hepatitis B negative, hepatitis C negative, RPR negative, HIV negative 1 hour GTT: 151 3-hour GTT: Unable to complete secondary to emesis GBS not collected. Previously positive in prior [facility] Disclaimer: The information contained in this section may have been updated after the patient was seen, as this information can be updated by other users. Medical History Hyperthyroidism affecting Seizures Thyroiditis Hypokalemia Surgical History History of section Family History Other Asthma Cancer Diabetes Family history of diabetes mellitus type II Heart attack Hyperlipidemia Hypertension Social History (Updated 08/30/24 @ 07:55 by Caryn Potter RN) Smoking Status: Current every day smoker tobacco type: cigarettes packs per day: 1 second hand exposure: Yes alcohol intake: never substance use type: former substance user and marijuana current occupational status: unemployed Travel in the last 8 weeks: None Other Medical History Have you received the Flu Vaccine for this season: No Have you received the Pneumonia Vaccine: No Review of Systems Review of Systems Review of systems (narrative): Review of Systems Constitutional: Denies fever, chills, and sweats Eyes: Denies vision change/ pain Respiratory: Denies cough and shortness of breath Cardiovascular: Denies chest pain and lightheadedness Gastrointestinal: Denies abdominal pain. Denies nausea, vomiting. Genitourinary: Denies dysuria and incontinence Musculoskeletal: Denies shoulder pain and back pain Neurological: Denies change in speech or headaches Meds Home Medications and Allergies Home Medications ?Medication ?Instructions ?Recorded ?Confirmed ?Type levetiracetam 1,000 mg tablet 1,000 mg PO BID seizures 06/23/24 08/30/24 History vitamin with calcium 1 tab PO DAILY Supplement 06/23/24 08/30/24 History no.72-iron 27 mg-folic acid 1 mg tablet ( Vitamins Plus Low Iron) promethazine 25 mg tablet 12.5 mg (1/2 x 25 mg) PO TIDP PRN 06/23/24 08/30/24 Rx nausea and vomiting #20 tabs aspirin 81 mg chewable tablet 81 mg PO DAILY Blood Thinner 06/24/24 08/30/24 History famotidine 20 mg tablet 20 mg PO DAILY 06/24/24 08/30/24 History potassium chloride 20 mEq 20 meq PO BID Supplement 06/24/24 08/30/24 History tablet,extended release(part/cryst) ondansetron 4 mg disintegrating 4 mg PO Q6HP PRN nausea and 07/14/24 08/30/24 Rx tablet vomiting #30 tabs blood-glucose meter (Blood Glucose #1 ea 08/09/24 08/17/24 Rx Monitoring kit) blood sugar diagnostic (OneTouch #10 ea 08/10/24 08/17/24 History Ultra Test strips) blood-glucose meter (OneTouch #1 ea 08/10/24 08/17/24 History Ultra2 Meter) lancets 33 gauge (OneTouch Delica #100 ea 08/10/24 08/17/24 History Plus Lancet) New Prescriptions to Start Prescriptions: Allergies Allergy/AdvReac Type Severity Reaction Status Date / Time No Known Allergies Allergy Verified 08/17/24 09:15 Exam Data for Last 24 hours Vital signs and Labs for Last 24 Hours: Pulse Resp BP 75 18 116/75 08/30/24 05:45 08/30/24 05:45 08/30/24 05:45 Laboratory Results - last 24 hr 08/30/24 05:20: Urine Color Yellow, Urine Appearance Clear, Urine pH 7.5, Ur Specific Rom[place] 1.015, Urine Protein Negative, Urine Glucose (UA) Negative, Urine Ketones Negative, Urine Blood Negative, Urine Nitrate Negative, Urine Bilirubin Negative, Urine Urobilinogen 1.0, Ur Leukocyte Esterase Trace, Urine WBC 3-5, Ur Squamous Epith Cells 5-10, Urine Bacteria 1+, Urine Mucus 1+, Urine Opiates Screen Negative, Urine Methadone Screen Negative, Ur Barbituates Screen Negative, Ur Phencyclidine Scrn Negative, Ur Amphetamines Screen Negative, U Benzodiazepines Scrn Negative, Urine Cocaine Screen Negative, U Marijuana (THC) Screen Positive H 08/30/24 05:30: WBC 8.7, RBC 3.99 L, Hgb 11.8 L, Hct 34.5 L, MCV 86.3, MCH 29.6, MCHC 34.3, RDW 13.9, Plt Count 301, MPV 8.5, Neut % (Auto) 72.0, Lymph % (Auto) 21.4, [place] % (Auto) 4.7, Eos % (Auto) 1.2, Baso % (Auto) 0.6, Neut # (Auto) 6.3, Lymph # (Auto) 1.9, [place] # (Auto) 0.4, Eos # (Auto) 0.1, Baso # (Auto) 0.1, Sodium 134 L, Potassium 3.3 L, Chloride 108 H, Carbon Dioxide 21 L, Anion Gap 8.3, BUN 4 L, Creatinine 0.40 L, Estimated Creat Clear 146, Estimated GFR 187, Est GFR ( Amer) 227, Glucose 80, Calcium 8.4, Total Bilirubin 0.5, AST 23, ALT 18, Alkaline Phosphatase 182 H, Total Protein 6.3, Albumin 3.4 L, Globulin 2.9, Albumin/Globulin Ratio 1.2 I & O for Last 24 hours: Intake & Output 08/27/24 08/28/24 08/29/24 08/30/24 23:59 23:59 23:59 23:59 Weight 99 lb 0.012 oz Narrative: General: patient is alert oriented in no acute distress and responds appropriately to questions. HEENT: NCAT, EOMI, moist mucous membranes, neck supple with full ROM Cardiovascular: RRR +S1/S2, no murmurs or rubs Pulmonary: Clear to auscultation bilaterally, nonlabored breathing, symmetric chest rise Abdominal: Gravid abdomen appropriate for gestation. No guarding, rebound, or tenderness noted. Extremities: trace edema, no tenderness or cyanosis noted Skin: Normal turgor, intact, warm. Negative for erythema, pallor, petechia, or lesions Neurologic: Negative for sensory or motor deficit Psychiatric: Normal affect, normal thought process, good judgment and insight, no depression or anxious mood appreciated. *Routine HEENT Exam Head: Present normocephalic and atraumatic Eye: Present EOMI, PERRL and normal accommodation; Absent conjunctival icterus, scleral injection, nystagmus or exophthalmos ENT: Present mucous membranes moist *Routine Respiratory Exam Respiratory: Present CTA bilaterally, normal respiratory effort, able to speak in complete sentences and symmetric chest movement; Absent accessory muscle use, decreased breath sounds, rales, respiratory distress, wheezes, distant breath sounds or diminished air movement *Routine Cardiovascular Exam Cardiovascular: Present RRR, Normal S1 and Normal S2; Absent murmur or gallop *Routine Abdominal Exam Abdominal: Present soft and normoactive bowel sounds; Absent tenderness, distended, rebound or guarding *Routine Rectal Exam Rectal:: deferred *Routine Genitalia Exam Genitalia:: normal female Assessment and Plan *Assessment and plan (1) Symmetric IUGR complicating , antepartum: Status: Acute Category: Medical Code(s): O36.5990 - Maternal care for other known or suspected poor growth, unspecified trimester, not applicable or unspecified (2) History of section: Status: Acute Category: Surgical Code(s): Z98.891 - History of uterine scar from previous surgery (3) Hyperthyroidism affecting : Status: Acute Qualifiers: Trimester: first trimester Qualified Code(s): O99.281 - Endocrine, nutritional and metabolic diseases complicating , first trimester; E05.90 - Thyrotoxicosis, unspecified without thyrotoxic crisis or storm Category: Medical Code(s): O99.280 - Endocrine, nutritional and metabolic diseases complicating , unspecified trimester; E05.90 - Thyrotoxicosis, unspecified without thyrotoxic crisis or storm (4) Seizure-like activity: Status: Acute Category: Medical Code(s): R56.9 - Unspecified convulsions (5) Hypokalemia: Status: Acute Category: Medical Code(s): E87.6 - Hypokalemia (6) Intractable nausea and vomiting: Status: Acute Category: Medical Code(s): R11.2 - Nausea with vomiting, unspecified (7) History of hyperthyroidism: Status: Acute Category: Medical Code(s): Z86.39 - Personal history of other endocrine, nutritional and metabolic disease (8) Marijuana use during : Status: Acute Category: Medical Code(s): O99.320 - Drug use complicating , unspecified trimester; F12.90 - Cannabis use, unspecified, uncomplicated (9) Hyperemesis affecting , antepartum: Status: Acute Category: Medical Code(s): O21.0 - Mild hyperemesis gravidarum (10) Tobacco abuse: Status: Acute Category: Medical Code(s): Z72.0 - Tobacco use (11) Chronic hypertension: Status: Acute Category: Medical Code(s): I10 - Essential (primary) hypertension (12) Sterilization: Status: Acute Category: Medical Code(s): Z30.2 - Encounter for sterilization Plan - Monitor vitals - Admit to L&D for scheduled delivery and bilateral salpingectomy - GBS unknown/ Blood type: A+ - Hemoglobin: 11.8, Plt: 301 - Plan for spinal anesthesia - Anticipate delivery of a male infant #Rubella Non Immune -Seal Mixing Operator and vaccinate #Intrauterine growth restriction -Follow-up testing -Delivery at 37 weeks gestation -MDP NST ratio is appropriate #Short interval #Chronic hypertension -Currently controlled without medication -Taking baby aspirin #Seizure-like activity -Prescribed Keppra at 26 weeks gestation by [facility] #Hyper thyroidism -Controlled on methimazole #Chronic hypokalemia
--- NOTE | 2024-08-30 08:42 | HMH.PHAINT1 ---
Pharmacy Intervention Comments: MEDICATION RECONCILIATION COMPLETED ON PATIENT USING EXTERNAL FILL HISTORY FROM PHARMACY AND LIST FROM ORTHO/PROSTHETIC AIDE OFFICE. -ARABELLA THORPED
--- NOTE | 2024-08-30 08:49 | P.OP_ITS ---
Date of procedure: 08/30/24 Pre-op Diagnosis:: 1. 37 weeks 0days gestation, S[place] 2. Chronic hypertension 3. Previous delivery, desires repeat 4. Desires sterilization 5. Intrauterine growth restriction 6. Rubella nonimmune 7. Short interval 8. Seizure-like activity 9. Hypothyroidism 10. Chronic hypokalemia 11. Gestational diabetes, diet-controlled Post-op Diagnosis:: 1. 37 weeks 0days gestation, S[place] 2. Chronic hypertension 3. Previous delivery, desires repeat 4. Desires sterilization 5. Intrauterine growth restriction 6. Rubella nonimmune 7. Short interval 8. Seizure-like activity 9. Hypothyroidism 10. Chronic hypokalemia 11. Gestational diabetes, diet-controlled Procedure performed:: Repeat Delivery with bilateral salpingectomy Surgeon:: Precious Munson DO Vault Clerk(s):: Maryjane Shah DO CAN RUNNER:: Karen Rubio Anesthesia: spinal Estimated blood loss (mL): 250 Operative findings:: 1. Live viable male : undecided. Weight: 5pounds 4ounces. Apgars 7 and 8 at 1 and 5 minutes respectively 2. Normal-appearing fallopian tubes and ovaries bilaterally Operative note:: Medications: 2 g of Ancef Summary: Procedure explained in its entirety. The patient was counseled on the risks and benefits of section including bleeding, vascular injury, infection, and injury to the surrounding structures. Hemorrhage requiring life saving blood transfusion resulting in blood born viral infection or allergic reaction was explained and the patient consented to blood transfusion. Possible need for further operative measures prolonging recovery time and hospitalization reviewed to include hysterectomy. Procedure explained in its entirety and patient had no further questions. Consented to procedure. The patient was taken back to the operating room where adequate spinal anesthesia was obtained. Pneumatic compression stockings applied to lower extremities. Ancef 2g was given for infection prophylaxis. She was placed in the dorsal supine position Urinary catheter was placed and found to be draining clear urine. The patient was prepped and draped in sterile fashion. Anesthesia was tested and and found to be adequate. A Pfannenstiel skin incision was made with the scalpel. Subcutaneous bleeding vessels were cauterized with the bovie. The incision was taken down to the fascia with the bovie. The fascia was knicked in the midline and sharply extended laterally. The superior aspect of the fascia was grasped with Mariela clamps and the rectus muscle was taken down sharply. The rectus muscle was sharply dissected from the midline with Mayos. This process was repeated inferiorly. The rectus muscles were in the midline, peritoneum was identified and entered bluntly. The bladder was noted to extend superiorly and careful attention was taken to avoid injury. Girish O retractor was placed. A bladder flap was created with Metzenbaum scissors and [place] pickups. The lower uterine segment was easily identified, sharply incised, and entered bluntly with the surgeon's index finger. Incision was then extended in a superior and inferior fashion by blunt separation. Membranes were ruptured revealing clear fluid. The fetus was in cephalic presentation. The head was carefully elevated out of the pelvis. Fundal pressure was applied when head was brought into incision. The infants head was delivered without difficulty. The shoulder and body followed without complication. Delivery occurred at 0806. The mouth and nose were suctioned with a bulb. The umbilical cord was clamped and cut. Infant was taken to warmer for evaluation by the supervisor metal furniture fabrication. A cord segment was obtained for gases and passed off the field. Cord blood was collected. The placenta was delivered via fundal massage. This will be sent to pathology for further evaluation secondary to IUGR and gestational diabetes. IV Pitocin was initiated. Inside of the uterus was gently cleared of blood and clots with lap sponge. The hysterotomy was closed with 0 Vicryl in a running locked fashion. The lower uterine segment was visualized and noted to be hemostatic. The ovaries and tubes were found to be normal. The posterior aspect of the uterus was cleared of blood clot with a damp lap sponge. The distal portion of the right fallopian tube was grasped with Liberty clamp and elevated away from surrounding structures. The Enseal device was inserted over mesosalpinx inferior to right distal fallopian tube and used to serially clamp, fulgurate, and transected the fallopian tube in its entirety. Hemostasis noted and the tube was passed off the operative field to be sent to pathology for further evaluation. This process was repeated on the contralateral side. Hemostasis noted. No bleeding was visualized at the fulguration site. Ovaries were observed and noted to be normal bilaterally. The gutters were inspected bilaterally and cleared of blood and clots with lap sponges. The uterine incision was reinspected there is a small amount of bleeding noted in the mesentery which was made hemostatic with the patient. Hysterotomy hemostasis noted. Girish O retractor was removed. The bladder was backfilled with normal saline and noted to be intact free of laceration. There was a small bleeding area on the bladder serosa which was made hemostatic with a single 3-0 Vicryl simple interrupted superficial stitch. The peritoneum was reapproximated using a 2-0 Monocryl in a nonlocked running fashion. The fascia was closed in a running nonlocked fashion using 0 Vicryl x2 meeting right of midline. Fascia was noted as not having gaps or defects. The subcutaneous fat was closed with 2-0 Monocryl interrupted sutures x3. Skin was closed with the INSORB suture in a subcuticular fashion. Patient tolerated the procedure well and all counts were correct x3, per nursing. Patient will receive tap blocks and then be transported to the OB PACU for recovery and bonding. Condition: stable Disposition: PACU Specimens:: 1. Live viable male infant 2. Placenta 3. Bilateral fallopian tubes Complications:: None
[2024-08-30 09:01] VITALS: BP 103/58; PULSE 51; RESP 18; TEMP 36.9; O2SAT 97
--- NOTE | 2024-08-30 09:10 | EXP.ANES.I ---
[facility] Anesthesia Record Part I Anesthesia Record I Intake, IV Amount: 1,700 Hydration: Adequate Estimated blood loss (mL): 250 Urine output (mL): 150 Blood Products used (#): none Blood Pressure: 103/58 SaO2: 97 Pulse Rate: 52 Airway Patency: Patent Respiratory Rate: 16 Temperature: 97.2 F Patient is:: Awake (Talking) and Stable Stable to PACU at:: 09:06
[2024-08-30 09:11] VITALS: BP 103/58; BP 97/54; PULSE 52; RESP 16; RESP 18; TEMP 36.2; O2SAT 97; O2SAT 99
[2024-08-30 09:21] VITALS: BP 103/71; RESP 18; O2SAT 99
[2024-08-30 09:31] VITALS: BP 122/76; RESP 18; O2SAT 99
[2024-08-30] MEDS: OXYTOCIN/RINGERS LACTATE 30 UNITS/500 ML BAG 40 UNITS IV (09:32)
[2024-08-30] MEDS: LACTATED RINGERS 1000ML 1,000 ML 125 ML IV (09:32)
--- NOTE | 2024-08-30 09:59 | EXP.ANES.II ---
[facility] Anesthesia Record Part II Anesthesia Record Part II Discharge Time: 09:11 Destination: Obstetric PACU nurse assessment reviewed?: Yes Patient Condition:: Good Anesthesia Complications:: None Swallowing reflex intact?: Yes Airway Patency: Patent Cyanosis?: No Blood Pressure: 97/54 SaO2: 99 Respiratory Rate: 18 Pulse Rate: 51 Temperature: 97.2 F Mental Status: Alert & Oriented Pain level:: 0 Nausea and/or vomitting:: None Intake, IV Amount: 1,700 Hydration: Adequate
[2024-08-30 10:01] VITALS: BP 97/54; PULSE 51; RESP 18; TEMP 36.2; O2SAT 99
[2024-08-30] MEDS: FAMOTIDINE 20MG TABLET 20 MG PO (10:52)
[2024-08-30] MEDS: CEFAZOLIN SODIUM 2 GM in 0.9 % SODIUM CHLORIDE 100 ML IV (10:52)
[2024-08-30] MEDS: ACETAMINOPHEN 500MG TAB 1000 MG PO ×3 (10:52→21:07)
[2024-08-30] MEDS: levETIRAcetam 500 MG TABLET 1000 MG PO ×2 (10:53→21:06)
[2024-08-30] MEDS: ASPIRIN 81MG CHEWABLE TABLET 81 MG PO (10:53)
[2024-08-30] MEDS: POTASSIUM CHLORIDE 20MEQ TAB 20 MEQ PO ×2 (10:53→21:06)
[2024-08-30 12:57] LABS: Microscopic,Cath URINE MICROSCOPIC (MICROSCOPIC)
[2024-08-30 13:03] LABS: Appearance,Urine/Cath CLEAR (Clear); Bilirubin,Cath Negative (Negative); Blood, Urine/Cath Negative (Negative); Color,Urine/Cath YELLOW (Yellow); Glucose,Urine/Cath (UA) Negative (Negative); Ketones,Urine/Cath Negative (Negative); Leukocyte Esterase,Cath Negative (Negative); Nitrate,Cath Negative (Negative); Protein,Urine/Cath Negative (Negative); Specific Gravity, Urine/Cath 1.015 (1.005-1.030); Urobilinogen,Cath 0.2 EU/dl (0.2)
[2024-08-30 13:11] LABS: Bacteria,Urine/Cath TRACE /lpf; Squamous Epithelial Ur./Cath Occasional #/hpf (0-5); WBC,Urine/Cath Occasional #/hpf (0-3)
[2024-08-30] MEDS: KETOROLAC 30MG/ML VIAL 30 MG IV ×2 (15:50→21:05)
[2024-08-30] MEDS: PRENATAL MULTIVITAMIN W/IRON 1 EACH PO (15:54)
[2024-08-30] MEDS: SODIUM CHLORIDE 0.9% 10ML FLUSH SYRINGE 10 ML IV (15:54)
--- NOTE | 2024-08-30 21:05 | PC.NURSE ---
patient refusing stronger medication at this time for pain 06/25
[2024-08-30] MEDS: NICOTINE 21MG/24HR PATCH 21 MG TD (21:41)
[2024-08-31] MEDS: OXYCODONE 5MG IMMEDIATE RELEASE TABLET 5 MG PO ×2 (00:36→12:21)
[2024-08-31] MEDS: KETOROLAC 30MG/ML VIAL 30 MG IV (03:48)
[2024-08-31] MEDS: ACETAMINOPHEN 500MG TAB 1000 MG PO ×4 (03:48→22:25)
[2024-08-31 06:37] LABS: Basophils % 0.3 % (0.1-2.0); Eosinophils # 0.1 K/mm3 (0.0-0.4); Eosinophils % 0.6 % (0.1-12.0); Hematocrit 31.3 % (37.0-47.0); Hemoglobin 10.7 g/dL (12.2-16.2); Lymphocytes # 2.6 K/mm3 (0.7-4.5); Mean Corpuscular HGB Conc 34.2 g/dL (31.8-35.4); Mean Corpuscular Hemoglobin 29.6 pg (27.0-31.2); Mean Corpuscular Volume 86.5 fl (81-99); Mean Platelet Volume 8.8 fl (7.4-10.4); Monocytes # 0.5 K/mm3 (0.1-1.0); Monocytes % 3.9 % (1.7-9.3); Neutrophils # 9.3 K/mm3 (1.8-7.8); Neutrophils % 74.2 % (37.0-80.0); Platelet Count 271 K/mm3 (142-424); Red Blood Count 3.62 M/mm3 (4.20-5.40); Red Cell Distribution Width 13.9 % (11.5-17.5); White Blood Count 12.5 K/mm3 (4.8-10.8)
[2024-08-31 07:41] VITALS: BP 123/71; PULSE 67; RESP 18; TEMP 36.7; O2SAT 98
[2024-08-31] MEDS: ASPIRIN 81MG CHEWABLE TABLET 81 MG PO (09:27)
[2024-08-31] MEDS: levETIRAcetam 500 MG TABLET 1000 MG PO ×2 (09:27→21:24)
[2024-08-31] MEDS: FAMOTIDINE 20MG TABLET 20 MG PO (09:27)
[2024-08-31] MEDS: IBUPROFEN 400 MG TABLET 800 MG PO ×2 (09:27→16:31)
[2024-08-31] MEDS: POTASSIUM CHLORIDE 20MEQ TAB 20 MEQ PO ×2 (09:27→21:24)
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
--- NOTE | 2024-08-31 12:25 | P.PN_ITS ---
Subjective *Date: 08/31/24 *Time: 15:24 Interval history: Lary Gil is a G3, P3 day #1 following a repeat section and bilateral salpingectomy at 37 weeks and 0 days gestation. was complicated by IUGR, previous delivery, rubella nonimmune, gesta tional diabetes, short interval , chronic hypertension, seizure-like activity, hypothyroidism, hypokalemia. Routine delivery and course. She is doing well, sitting up in bed, and caring for the this morning. -Patient's only complaint is that on the right apex of her incision she believes it is opening up a little bit -Reports pain is well-controlled -Reports she is tolerating p.o. without nausea or vomiting. -Reports her lochia is scant. -Bilateral salpingectomy for contraception -She is bottle-feeding her male infant -Ambulating, voiding difficulty or dysuria. Denies chest pain shortness of breath or pain in her legs. No further complaints at this time. Exam Data for Last 24 hours Vital signs and Labs for Last 24 Hours: Temp Pulse Resp BP Pulse Ox O2 Del Method 98.1 F 67 18 123/71 98 Room Air 08/31/24 07:41 08/31/24 07:41 08/31/24 07:41 08/31/24 07:41 08/31/24 07:41 08/31/24 07:41 Laboratory Results - last 24 hr 08/30/24 07:44: Urine Color Yellow, Urine Appearance Clear, Urine pH 8.0, Ur Specific [place] 1.015, Urine Protein Negative, Urine Glucose (UA) Negative, Urine Ketones Negative, Urine Blood Negative, Urine Nitrate Negative, Urine Bilirubin Negative, Urine Urobilinogen 0.2, Ur Leukocyte Esterase Negative, Urine RBC None, Urine WBC Occasional, Ur Squamous Epith Cells Occasional, Urine Bacteria Trace 08/31/24 06:15: WBC 12.5 H D, RBC 3.62 L, Hgb 10.7 L, Hct 31.3 L, MCV 86.5, MCH 29.6, MCHC 34.2, RDW 13.9, Plt Count 271, MPV 8.8, Neut % (Auto) 74.2, Lymph % (Auto) 21.0, Cobb % (Auto) 3.9, Eos % (Auto) 0.6, Baso % (Auto) 0.3, Neut # (Auto) 9.3 H, Lymph # (Auto) 2.6, Cobb # (Auto) 0.5, Eos # (Auto) 0.1, Baso # (Auto) 0.0 I & O for Last 24 hours: Intake & Output 08/28/24 08/29/24 08/30/24 08/31/24 23:59 23:59 23:59 23:59 Intake Total 3400 / 3400 Output Total 700 / 700 Balance 2700 / 2700 Weight 99 lb 0.012 oz Narrative: General: patient is alert oriented in no acute distress and responds appropriately to questions. Appears to be in minimal pain. Sitting up in the chair and doing well HEENT: NCAT, EOMI, moist mucous membranes, neck supple with full ROM Cardiovascular: RRR +S1/S2, no murmurs or rubs Pulmonary: Clear to auscultation bilaterally, nonlabored breathing, symmetric chest rise Abdominal: Fundus below the umbilicus, firm, and tenderness appropriate for the period. Extremities: trace edema, no tenderness or cyanosis noted Skin: Normal turgor, intact, warm. Negative for erythema, pallor, petechia, or lesions. Well-healing skin incision, however there is a slight opening at the right apex is approximately 2-1/2 cm along the Pfannenstiel incision. This was reapproximated with Dermabond. Prior to placing Dermabond it was copiously scru bbed with CHG x 3. Closed well. No signs of infection Neurologic: Negative for sensory or motor deficit Psychiatric: Normal affect, normal thought process, good judgment and insight, no depression or anxious mood appreciated. Assessment and Plan *Assessment and plan (1) History of section: Status: Acute Category: Surgical Code(s): Z98.891 - History of uterine scar from previous surgery (2) Hyperthyroidism affecting : Status: Acute Qualifiers: Trimester: first trimester Qualified Code(s): O99.281 - Endocrine, nutritional and metabolic diseases complicating , first trimester; E05.90 - Thyrotoxicosis, unspecified without thyrotoxic crisis or storm Category: Medical Code(s): O99.280 - Endocrine, nutritional and metabolic diseases complicating , unspecified trimester; E05.90 - Thyrotoxicosis, unspecified without thyrotoxic crisis or storm (3) Seizure-like activity: Status: Acute Category: Medical Code(s): R56.9 - Unspecified convulsions (4) Hypokalemia: Status: Acute Category: Medical Code(s): E87.6 - Hypokalemia (5) History of hyperthyroidism: Status: Acute Category: Medical Code(s): Z86.39 - Personal history of other endocrine, nutritional and metabolic disease (6) Marijuana use during : Status: Acute Category: Medical Code(s): O99.320 - Drug use complicating , unspecified trimester; F12.90 - Cannabis use, unspecified, uncomplicated (7) Hyperemesis affecting , antepartum: Status: Acute Category: Medical Code(s): O21.0 - Mild hyperemesis gravidarum (8) Tobacco abuse: Status: Acute Category: Medical Code(s): Z72.0 - Tobacco use (9) Chronic hypertension: Status: Acute Category: Medical Code(s): I10 - Essential (primary) hypertension (10) Sterilization: Status: Acute Category: Medical Code(s): Z30.2 - Encounter for sterilization (11) Hypomagnesemia: Status: Acute Category: Medical Code(s): E83.42 - Hypomagnesemia Plan Stable. POD#1 s/p repeat delivery and bilateral salpingectomy -Doing well. VSS. Serial lochia and fundal checks. -Continue with perineal ice packs for discomfort -Hemoglobin: 11.8--> 10.7 -A+/antibody negative -Bottle feeding, male infant Zaylon -Contraception: BSG -Follow-up thursday for routine visit -Dispo: home in 1-3 days pending mother/ status #Rubella Non Immune -[employer] and vaccinate #Intrauterine growth restriction -Infant doing well #Chronic hypertension -Currently controlled without medication -Doing well #Seizure-like activity -Prescribed Keppra at 26 weeks gestation by [facility] #Hyper thyroidism -Controlled on methimazole #Chronic hypokalemia #Hypomagnesemia -3.3 with admission labs, replaced with 80 mEq -On 06/16/2024 magnesium was low at 1.6. Replace with 2 g of IV magnesium and recheck that level
[2024-08-31 12:30] LABS: Rapid Plasma Reagin Ab Titer Non Reactive titer (NonRea<1:1)
[2024-08-31] MEDS: POTASSIUM CHLORIDE 20MEQ TAB 80 MEQ PO (13:36)
[2024-08-31] MEDS: MAGNESIUM SULFATE IN WATER 2 GM/50 ML PIGGYBACK IV (13:36)
[2024-08-31 16:29] VITALS: BP 144/71; PULSE 60; RESP 18; TEMP 36.7; O2SAT 98
[2024-08-31 20:02] VITALS: BP 118/88; PULSE 79; RESP 18; TEMP 36.6; O2SAT 99
[2024-08-31] MEDS: LIDOCAINE 2% w/EPI 1:200,000 20ML VIAL SQ (20:55)
--- NOTE | 2024-08-31 21:12 | P.PCN_ITS ---
[facility] Procedure Note Date: 08/31/24 Time: 21:12 Procedure Note:: Last night, 08/30/24 I received a phone call that the patients pfannenstiel skin incision had slightly at the right apex. I was informed that there is no purulent drainage that was superficial and that was not bleeding. A pressure dressing was applied and I evaluated the area this morning. The pressure dressing was clean dry and intact and the patient was planning to get in the shower. I returned after the patient shower and evaluated the area. The area was cleansed copiously with CHG x 3. The subcutaneous tissue was reapproximated the defect was probed and no significant defect was noted. Fascia was suspected to be intact. The separation was extremely superficial with less than half a centimeter in depth. The area was easily reapproximated with Dermabond. Approximately 3 hours after this was completed the patient went to the restroom and accidentally ripped the Dermabond off causing the wound to separate slightly again. I was called in by the RN for evaluation. At this time decision was ma kody to suture the area. The area was approximately 3 cm in length. This area was again copiously cleansed with CHG x 3 and probed and noted to have no defects and being very superficial. The area was numbed with 1% lidocaine with epinephrine, 10 mL. A cool rag was provided to the patient for additional comfort measures throughout the procedure. A 3-[address] was [address] to place 4 simple interrupted loosely tied stitches to reapproximate the area. She will be started on an antibiotic for additional infection prophylaxis. She will return on Thursday for evaluation. She tolerated procedure very well. MISBAH Cerda was bedside for assistance
[2024-08-31] MEDS: cephALEXin 500MG CAPSULE 500 MG PO (22:25)
[2024-09-01] MEDS: OXYCODONE 5MG IMMEDIATE RELEASE TABLET 5 MG PO (01:00)
[2024-09-01] MEDS: IBUPROFEN 400 MG TABLET 800 MG PO (01:01)
[2024-09-01 04:27] VITALS: BP 129/76; PULSE 77; RESP 16; TEMP 36.6; O2SAT 97
[2024-09-01] MEDS: ACETAMINOPHEN 500MG TAB 1000 MG PO (04:33)
[2024-09-01 06:55] LABS: Albumin Level 3.2 g/dl (3.5-5.0); Chloride 108 mmol/L (98-107); Sodium 131 mmol/L (136-145)
[2024-09-01 06:56] LABS: Potassium 5.1 mmoL/L (3.5-5.1)
[2024-09-01 06:58] LABS: Alanine Aminotransferase 11 U/L (12-78); Albumin/Globulin Ratio 1.1 (1.1-1.8); Anion Gap 8.1 mEq/L (5-15); Aspartate Amino Transferase 23 U/L (14-36); Blood Urea Nitrogen 4 mg/dl (7-17); Carbon Dioxide 20 mmol/L (22.0-30.0); Creatinine Clearance Estimated 117 mL/min (50-200); Estimated Glomerular Filt Rate 145 ml/min (>60); GFR (African American) 175 ML/MIN (>60); Total Protein,Serum 6.2 g/dl (6.3-8.2)
[2024-09-01 06:59] LABS: Alkaline Phosphatase 142 U/L (38-126); Bilirubin,Total 0.4 mg/dl (0.2-1.3); Glucose 64 mg/dl (74-100); Magnesium 1.7 mg/dl (1.6-2.3)
[2024-09-01] MEDS: ASPIRIN 81MG CHEWABLE TABLET 81 MG PO (09:04)
[2024-09-01] MEDS: levETIRAcetam 500 MG TABLET 1000 MG PO (09:04)
[2024-09-01] MEDS: cephALEXin 500MG CAPSULE 500 MG PO (09:05)
[2024-09-01] MEDS: FAMOTIDINE 20MG TABLET 20 MG PO (09:05)
[2024-09-01] MEDS: POTASSIUM CHLORIDE 20MEQ TAB 20 MEQ PO (09:05)
--- NOTE | 2024-09-01 09:27 | P.DS_ITS ---
General Admission date:: 08/30/24 Discharge date: 09/01/24 HPI HPI HPI: Lary is a 28-year-old at 37 weeks and 0 days gestation who presented to labor and delivery for a scheduled delivery and bilateral salpingectomy. Her has been complicated by IUGR, previous delivery, rubella nonimmune, gestational diabetes, short interval , chronic hypertension, seizure-like activity, hypothyroidism, hypokalemia. On presentation patient endorsed good movement and denies any leakage of fluid or vaginal bleeding. Her last growth ultrasound was on 08/25/2024: Fetus was in cephalic presentation with an anterior grade 3 placenta. EFW: 2452 g, 5 pounds. This is a baby in the 12th percentile. Previously the has been in the less than 10th percentile. BPD was less than 2nd percentile, femur length was 5th percentile, HC: 16%, AC: 24%. MVP was appropriate at 7.02 cm. SD ratio was normal. BPP was 8/8. There continues to be mild renal pelvis dilation, bilaterally at 4.3 mm. A+, antibody negative, rubella not immune, hepatitis B negative, hepatitis C negative, RPR negative, HIV negative 1 hour GTT: 151 3-hour GTT: Unable to complete secondary to emesis GBS not collected. Previously positive in prior Hospital Course Hospital Course Hospital Course: Lary Gil is a G3, P3 day #2 following a repeat section and bilateral salpingectomy at 37 weeks and 0 days gestation. was complicated by IUGR, previous delivery, rubella nonimmune, gestational diabetes, short interval , chronic hypertension, seizure- like activity, hypothyroidism, hypokalemia. She is doing well, sitting up in bed, and caring for the this morning. Her blood type is a positive. She delivered on 08/30/2024 at 0806. She had a male infant, Tera who weighed 5 pounds and 4 ounces. Apgars were 7 and 8. She is bottlefeeding. She had a small complication with her Pfannenstiel skin incision postoperatively this has been reapproximated and closed and is healing well. There are no signs of infection. She was started on antibiotics and we will continue them for 10 days postoperatively. She will have short interval follow-up for incision reassessment. She was previously diagnosed with hypertension and it has been well-controlled throughout her postoperative course. She had bilateral salpingectomy for contraception. Reports her pain is well-controlled. She is tolerating p.o. without nausea or vomiting. She has no concerns/problems with bowel movements or urination. Her lochia is scant. Patient denies chest pain shortness of breath or pain in her legs. No further complaints at this time. Lary is requesting discharge home today. Routine discharge structures reviewed with patient in detail and she voiced understanding Exam Data for Last 24 hours Vital signs and Labs for Last 24 Hours: Temp Pulse Resp BP Pulse Ox O2 Del Method 97.8 F 77 16 129/76 97 Room Air 09/01/24 04:27 09/01/24 04:27 09/01/24 04:27 09/01/24 04:27 09/01/24 04:27 09/01/24 04:27 Laboratory Results - last 24 hr 08/30/24 05:30: RPR Titer Non reactive 09/01/24 06:09: Sodium 131 L, Potassium 5.1 D, Chloride 108 H, Carbon Dioxide 20 L, Anion Gap 8.1, BUN 4 L, Creatinine 0.50 L D, Estimated Creat Clear 117, Estimated GFR 145, Est GFR ( Amer) 175 D, Glucose 64 L, Calcium 9.0, Magnesium 1.7, Total Bilirubin 0.4, AST 23, ALT 11 L D, Alkaline Phosphatase 142 H, Total Protein 6.2 L, Albumin 3.2 L, Globulin 3.0, Albumin/Globulin Ratio 1.1 I & O for Last 24 hours: Intake & Output 08/29/24 08/30/24 08/31/24 09/01/24 23:59 23:59 23:59 23:59 Intake Total 3400 / 3400 Output Total 700 / 700 Balance 2700 / 2700 Weight 99 lb 0.012 oz Narrative: General: patient is alert oriented in no acute distress and responds appropriately to questions. Appears to be in minimal pain. Sitting up in the c hair and doing well HEENT: NCAT, EOMI, moist mucous membranes, neck supple with full ROM Cardiovascular: RRR +S1/S2, no murmurs or rubs Pulmonary: Clear to auscultation bilaterally, nonlabored breathing, symmetric chest rise Abdominal: Fundus below the umbilicus, firm, and tenderness appropriate for the period. Extremities: trace edema, no tenderness or cyanosis noted Skin: Normal turgor, intact, warm. Negative for erythema, pallor, petechia, or lesions. Right apex of incision is well approximated with simple sutures x 4. The remaining incision is well-healing with Dermabond over it. There are no signs of infection Neurologic: Negative for sensory or motor deficit Psychiatric: Normal affect, normal thought process, good judgment and insight, no depression or anxious mood appreciated. Results Data Completed and Pending Labs on day of discharge: Labs from last 24 hours 09/01/24 08/30/24 06:09 05:30 Sodium 131 L Potassium 5.1 D Chloride 108 H Carbon Dioxide 20 L Anion Gap 8.1 BUN 4 L Creatinine 0.50 L D Estimated Creat Clear 117 Estimated GFR 145 Est GFR ( Amer) 175 D Glucose 64 L Calcium 9.0 Magnesium 1.7 Total Bilirubin 0.4 AST 23 ALT 11 L D Alkaline Phosphatase 142 H Total Protein 6.2 L Albumin 3.2 L Globulin 3.0 Albumin/Globulin Ratio 1.1 RPR Titer Non reactive DS: Diagnosis Discharge Diagnosis (1) History of section: Status: Acute Code(s): Z98.891 - History of uterine scar from previous surgery (2) Hyperthyroidism affecting : Status: Acute Code(s): O99.280 - Endocrine, nutritional and metabolic diseases complicating , unspecified trimester; E05.90 - Thyrotoxicosis, unspecified without thyrotoxic crisis or storm Qualifiers: Trimester: first trimester Qualified Code(s): O99.281 - Endocrine, nutritional and metabolic diseases complicating , first trimester; E05.90 - Thyrotoxicosis, unspecified without thyrotoxic crisis or storm (3) Seizure-like activity: Status: Acute Code(s): R56.9 - Unspecified convulsions (4) Hypokalemia: Status: Acute Code(s): E87.6 - Hypokalemia (5) History of hyperthyroidism: Status: Acute Code(s): Z86.39 - Personal history of other endocrine, nutritional and metabolic disease (6) Marijuana use during : Status: Acute Code(s): O99.320 - Drug use complicating , unspecified trimester; F12.90 - Cannabis use, unspecified, uncomplicated (7) Hyperemesis affecting , antepartum: Status: Acute Code(s): O21.0 - Mild hyperemesis gravidarum (8) Tobacco abuse: Status: Acute Code(s): Z72.0 - Tobacco use (9) Chronic hypertension: Status: Acute Code(s): I10 - Essential (primary) hypertension (10) Sterilization: Status: Acute Code(s): Z30.2 - Encounter for sterilization (11) Hypomagnesemia: Status: Acute Code(s): E83.42 - Hypomagnesemia Meds Home Medications and Allergies Home Medications ?Medication ?Instructions ?Recorded ?Confirmed ?Type levetiracetam 1,000 mg tablet 1,000 mg PO BID 06/23/24 08/30/24 History vitamin with calcium 1 tab PO DAILY 06/23/24 08/30/24 History no.72-iron 27 mg-folic acid 1 mg tablet ( Vitamins Plus Low Iron) promethazine 25 mg tablet 12.5 mg (1/2 x 25 mg) PO TIDP PRN 06/23/24 08/30/24 Rx nausea and vomiting #20 tabs famotidine 20 mg tablet 20 mg PO DAILY 06/24/24 08/30/24 History potassium chloride 20 mEq 20 meq PO BID Supplement 06/24/24 08/30/24 History tablet,extended release(part/cryst) ondansetron 4 mg disintegrating 4 mg PO Q6HP PRN nausea and 07/14/24 08/30/24 Rx tablet vomiting #30 tabs acetaminophen 500 mg tablet 500 mg PO Q6H PRN fever or pain 09/01/24 Rx #30 tabs cephalexin 500 mg capsule 500 mg PO Q12H #18 caps 09/01/24 Rx ibuprofen 800 mg tablet 800 mg PO Q8H PRN pain #60 tabs 09/01/24 Rx oxycodone 5 mg tablet 5 mg PO Q8H PRN pain #20 tabs 09/01/24 Rx sennosides 8.6 mg tablet (Senna 8.6 mg PO BIDP PRN Constipation 09/01/24 Rx Lax) #60 tabs simethicone 125 mg tablet 125 mg PO DAILY PRN abdominal 09/01/24 Rx distention #60 tabs New Prescriptions to Start Prescriptions: acetaminophen Arpit,Precious cephalexin Arpit,Precious ibuprofen Arpit,Precious oxycodone Precious Munson sennosides [Senna Lax] Precious Munson simethicone Precious Munson Allergies Allergy/AdvReac Type Severity Reaction Status Date / Time No Known Allergies Allergy Verified 08/17/24 09:15 Discharge Plan Disposition Patient Disposition: Home, Self-Care Condition: Good Discharge Order Discharge Orders: Discharge Order (Routine); Ordered 09/01/24 Ordered By: Precious Munson Follow up Plan Follow up with: Precious Munson DO [Staff Physician] - 09/07/24 10:30 am Prescriptions/Medication Reconciliation: New sennosides [Senna Lax] 8.6 mg Tablet 8.6 mg PO BIDP PRN (Reason: Constipation) Qty: 60 2RF ibuprofen 800 mg tablet 800 mg PO Q8H PRN (Reason: pain) Qty: 60 2RF acetaminophen 500 mg tablet 500 mg PO Q6H PRN (Reason: fever or pain) Qty: 30 3RF oxycodone 5 mg tablet 5 mg PO Q8H PRN (Reason: pain) Qty: 20 0RF simethicone 125 mg tablet 125 mg PO DAILY PRN (Reason: abdominal distention) Qty: 60 2RF cephalexin 500 mg Capsule 500 mg PO Q12H Qty: 18 0RF Continued ondansetron 4 mg tablet,disintegrating 4 mg PO Q6HP PRN (Reason: nausea and vomiting) Qty: 30 0RF levetiracetam 1,000 mg tablet 1,000 mg PO BID Vitamin Plus Low Iron 27 mg iron- 1 mg tablet 1 tab PO DAILY promethazine 25 mg tablet 12.5 mg PO TIDP PRN (Reason: nausea and vomiting) Qty: 20 3RF potassium chloride 20 mEq tablet,ER particles/crystals 20 meq PO BID famotidine 20 mg Tablet 20 mg PO DAILY Discontinued (DME) blood-glucose meter [OneTouch Ultra2 Meter] Misc See Rx Instructions .ROUTE .MEDSUPPLY Qty: 1 Rx Instructions: As directed (DME) OneTouch Ultra Test Strip See Rx Instructions .ROUTE .MEDSUPPLY Qty: 10 Rx Instructions: As directed (DME) lancets [OneTouch Delica Plus Lancet] 33 gauge misc See Rx Instructions .ROUTE .MEDSUPPLY Qty: 100 Rx Instructions: As directed (DME) blood-glucose meter [Blood Glucose Monitoring] Kit See Rx Instructions .Route Qty: 1 0RF Rx Instructions: 4x daily. Fasting, 2 hours after breakfast, lunch and dinner. aspirin 81 mg tablet,chewable 81 mg PO DAILY Problem Reconciliation Problems Reviewed?: Yes Patient Discharge Instructions ACTIVITY: Continue current activity DIET: regular diet Additional Instructions: Congratulations on the delivery of your sweet baby boy. It is my privilege to be your doctor and I am so thankful I could be a part of your special day. Discharge: 1. Take 800 mg Ibuprofen every 8 hours as needed for pain. You can also take 500-1000mg of Tylenol in between doses, every 6-8 hours. Use prescription pain medicine for pain you feel in between 8 hour interval. -No driving while taking narcotic pain medications. In order to drive you should be able to slam on the brakes without significant abdominal pain. 2. Wean from prescription pain medicine first. Do not drive while taking it. 3. Prescription pain medicine can make you constipated. Colace can be taken 1-2 times per day as you need. Make sure to drink at least 8 cups of water per day. 4. Iron supplements can make you constipated. Colace can be taken 1-2 times per day as you need. You can take iron tablets every other day if constipation is too bad. 5. Nothing in the vagina for 6 weeks - no intercourse, douching, tampons. No tub baths or swimming pools 6. Do not lift greater than 15 pounds for 6 weeks, this is the equivalent of 2 gallons of milk. 7. Reasons to return to L&D or call On-Call doctor - fever (greater than 100.4) - heavy vaginal bleeding (soaking through 1 pad in less than 2 hours or passing clots that are egg sized) - vaginal discharge (malodorous and/or purulent) - bleeding or discharge from her incision - severe headaches, leg tenderness/edema, or any other symptoms that warrant immediate medical attention. 8. depression/blues - Normal to feel anxious/overwhelmed for first 2 weeks - Talk to your doctor if: anxiety lasts over 2 weeks, trouble bonding with baby, withdrawing from other family members, thoughts of harming yourself or others Blood pressure and preeclampsia instructions 1. Please take your blood pressure twice daily. 2. Please call if greater than 2 values are higher than: 150 systolic (the top number) or 100 diastolic (the bottom number). 3. Please go to the emergency room or labor and delivery triage if any value is higher than: 160 systolic (the top number) or 110 diastolic (the bottom number). 4. Please call if unrelenting headache (does not go away with rest or Tylenol or ibuprofen), changes in vision (spots, floaters, flashes of light), chest pain, shortness of breath, or right upper quadrant (liver) abdominal pain. Precious Munson DO [facility] [phone] *Nothing in the Vagina for 6 weeks* *No strenuous activity* *No heavy lifting* *No tub baths until okay's by MD* Patient Instructions: Depression, Hemorrhage, DI for , DI for Pre-eclampsia, [facility] Post Discharge Instructions Print Language: Indonesian Providers Primary Care Provider: Courtney Baig Admit Provider: Manolo Jaime Attending Provider: Precious Munson
[2024-09-01] MEDS: MEASLES,MUMPS,RUBELLA VACCINE VIAL 0.5 ML SQ (12:34)
== END 2024-09-01 11:30 | disposition home or self-care (01) | DRG 784 ==
PROVIDERS: Admitting Provider Nurse Practitioner Obstetrics & Gynecology; PCP Nurse Practitioner Family; Visit Provider Obstetrics & Gynecology
PROC: 10D00Z1 Extraction of Products of Conception, Low, Open Approach (ICD-10-PCS; CPT 59514; principal; 2024-08-30 07:30)
DX: O34.211 Maternal care for low transverse scar from previous cesarean delivery (principal); O10.02 Pre-existing essential hypertension complicating childbirth; O99.324 Drug use complicating childbirth; O36.5930 Maternal care for other known or suspected poor fetal growth, third trimester, not applicable or unspecified; O24.420 Gestational diabetes mellitus in childbirth, diet controlled; Z3A.37 37 weeks gestation of pregnancy; Z37.0 Single live birth; N85.8 Other specified noninflammatory disorders of uterus; Z30.2 Encounter for sterilization; O99.284 Endocrine, nutritional and metabolic diseases complicating childbirth; F12.90 Cannabis use, unspecified, uncomplicated; O99.334 Smoking (tobacco) complicating childbirth; F17.210 Nicotine dependence, cigarettes, uncomplicated; E05.90 Thyrotoxicosis, unspecified without thyrotoxic crisis or storm
CPT/HCPCS: 36415; 59025; 80053; 80307; 81001; 83735; 85025; 86593; 86850; 90707; 94761; 96374; C9290; G0283; J1100; J1200; J1885; J2405; J3010; J3475; J7120

== ENCOUNTER 2024-09-24 10:50 | Emergency (ER) | payer OTHER, SELFPAY ==
[2024-09-24 10:51] VITALS: BP 167/94; PULSE 63; RESP 18; TEMP 36.8; O2SAT 98; BMI 19.1
[2024-09-24 10:57] VITALS: BP 167/94; PULSE 58; O2SAT 99
[2024-09-24 11:00] VITALS: BP 149/92; PULSE 50; O2SAT 96
--- NOTE | 2024-09-24 11:32 | PC.NURSE ---
pt walked out of her room when I inquired if she was okay she became very irritated. The pt started yelling, this was only suppose to take 5 minutes. I apologized she continued to yell and left the ER.
[2024-09-24 11:41] VITALS: BP 0/0; PULSE 0; RESP 0; TEMP -17.7; TEMP 0
== END 2024-09-24 11:42 | disposition left against medical advice (07) ==
LOC: ER 11:02
PROVIDERS: Emergency Provider Student in an Organized Health Care Education/Training Program; PCP Nurse Practitioner Family
DX: Z53.1 Procedure and treatment not carried out because of patient's decision for reasons of belief and group pressure (principal)
CPT/HCPCS: 99281

== ENCOUNTER 2024-10-21 11:49 | Outpatient (CLI) | payer OTHER, SELFPAY ==
[2024-10-21 12:56] LABS: Alanine Aminotransferase 18 U/L (12-78); Albumin Level 4.6 g/dl (3.5-5.0); Albumin/Globulin Ratio 1.7 (1.1-1.8); Alkaline Phosphatase 59 U/L (38-126); Anion Gap 10.4 mEq/L (5-15); Aspartate Amino Transferase 28 U/L (14-36); Bilirubin,Total 0.6 mg/dl (0.2-1.3); Blood Urea Nitrogen 4 mg/dl (7-17); Calcium 9.6 mg/dl (8.4-10.2); Carbon Dioxide 27 mmol/L (22.0-30.0); Chloride 109 mmol/L (98-107); Estimated Glomerular Filt Rate 98 ml/min (>60); GFR (African American) 118 ML/MIN (>60); Globulin 2.7 g/dL (1.3-3.2); Glucose 87 mg/dl (74-100); Potassium 3.4 mmoL/L (3.5-5.1); Sodium 143 mmol/L (136-145); Total Protein,Serum 7.3 g/dl (6.3-8.2)
== END 2024-10-21 23:59 | disposition home or self-care (01) ==
LOC: LAB 11:51
PROVIDERS: PCP Nurse Practitioner Family; Visit Provider Obstetrics & Gynecology
DX: E83.42 Hypomagnesemia (principal); E87.6 Hypokalemia
CPT/HCPCS: 36415; 80053; 83735

== ENCOUNTER 2025-08-07 11:00 | Outpatient (CLI) | payer OTHER, SELFPAY ==
--- OUTSIDE RECORDS SUMMARY | 2025-08-08 14:34 | XMS_ITS | Clinical Summary ---
Author Organization [facility] Address [address] [place] [address] Care Team Providers Care Poker Room Manager Name Role Phone Fernando Avelar MD Primary Care Provider [phone] Allergies No known active allergies Medications levETIRAcetam (Keppra) 1000 MG tablet Take 1 tablet (1,000 mg) by mouth 2 (two) times a day. 60 tablet 3 06/17/2024 Active Active Problems Problem Noted Date Diagnosed Date Seizure-like activity 06/17/2024 Social History Tobacco Use Types Packs/Day Years Used Date Smoking Tobacco: Never Assessed Comments No Sex and Gender Information Value Date Recorded Sex Assigned at Not on file Legal Sex Female 8:15 PM EDT Gender Identity Not on file Sexual Orientation Not on file Last Filed Vital Signs Vital Sign Reading Time Taken Comments Blood Pressure 124/57 06/17/2024 10:33 AM EDT Pulse 71 06/17/2024 10:33 AM EDT Temperature 36.8 C (98.3 F) 06/17/2024 10:33 AM EDT Respiratory Rate 18 06/17/2024 10:33 AM EDT Oxygen Saturation 100% 06/17/2024 10:33 AM EDT Inhaled Oxygen Concentration - - Weight 45.5 kg (100 lb 5 oz) 06/17/2024 3:12 PM EDT Height 152 cm (4' 11.84 ) 06/17/2024 3:12 PM EDT Body Mass Index 19.69 06/17/2024 3:12 PM EDT Plan of Treatment Health Maintenance Due Date Last Done Comments [facility]-Depression Screening 1993 [facility]-HIV Screening 1993 [facility]-Hepatitis C Screening 1993 [facility]-/Child/Adol SDOH Screenings 1993 [facility]-IPV Vaccines (2 of 3 - 4-dose series) 01/15/1999 12/18/1998 [facility]-Varicella Vaccines (1 of 2 - 13+ 2-dose series) 2006 [facility]- SDOH Screenings 2011 [facility]-Adult SDOH Screenings 2011 [facility]-Hepatitis B Vaccines (1 of 3 - 19+ 3-dose series) 2012 [facility]-Pap Smear 2014 [facility]-Cervical Cancer Screening 2023 [facility]-HPV/Cotest 2023 [id number] Vaccine (2 - 2024- season) 2025 02/14/2021 [facility]-Influenza Vaccine (#1) 2025 [facility]-DTaP,Tdap,and Td Vaccines (4 - Td or Tdap) 01/13/2030 01/14/2020, 06/15/2006, 12/18/1998 [facility]-Zoster Vaccines (1 of 2) 2043 HPV Vaccines Completed 01/07/2010, 08/27/2009, 06/14/2009 [facility]-HIB Vaccines Aged Out No longer e ligible based on patient's age to complete this topic [facility]-Hepatitis A Vaccines Aged Out No longer eligible based on patient's age to complete this topic [facility]-Pneumococcal Vaccine: Pediatrics (0 to 5 Years) and At-Risk Patients (6 to 49 Years) Aged Out No longer eligible b ased on patient's age to complete this topic [facility]-Rotavirus Vaccines Aged Out No lo nger eligible based on patient's age to complete this topic Insurance [employer] [facility] MEDICAID Advance Directives * Full Code (Latest Code Status on File) Date Activated Date Inactivated Comments 06/17/2024 11:00 AM 06/17/2024 8:17 PM Question Answer Comments Patient has decision-making capacity? Yes Care Teams Poker Room Manager Relationship Specialty Start Date End Date Fernadno Avelar MD [address] [place] [address] PCP - General 05/17/23
== END 2025-08-07 23:59 | disposition home or self-care (01) ==
LOC: LAB.DROPOF 08-08 14:32
PROVIDERS: PCP Obstetrics & Gynecology; Visit Provider Obstetrics & Gynecology
DX: N39.0 Urinary tract infection, site not specified (principal); R10.2 Pelvic and perineal pain
CPT/HCPCS: 87086; 87088